=== PATIENT | male | born 1985 | race African-American/Black ===

== ENCOUNTER 2018-06-05 12:12 | Inpatient (IN) | payer MEDICAID ==
[~2018-06-05] VITALS: Ht 193 cm; Wt 122.0 kg
[~2018-06-05 12:12] MED LIST: DIVA-73 PO; ONDA4TAB35 PO
[2018-06-05] MEDS ORDERED: LORAZEPAM 2 MG INJ IM STA ×2 (12:17→18:11)
[2018-06-05] MEDS ORDERED: OLANZAPINE 10 MG VIAL IM ONE (12:30)
[2018-06-05] MEDS ORDERED: DIPHENHYDRAMINE 50 MG INJ IM ONE (12:30)
[2018-06-05] MEDS ORDERED: DIVA-48 PO ×2 (13:01)
[2018-06-05] MEDS ORDERED: OLAN10TA7 PO (13:01)
--- NOTE | 2018-06-05 13:25 | ERD ---
ER Documentation Chief Complaint Chief Complaint pt bib ambulance for psych eval, pt aggressive, uncooperative, with PD HPI 33-year-old male was brought in by ambulance and police after he was found aggressive and acting abnormally in the street. Reportedly the patient was here yesterday but left without being seen. Otherwise history is limited as the patient is unable to answer questions appropriately ROS Unable to obtain as the patient is intoxicated and not making sense Medications Home Meds Reported Medications Olanzapine* (Zyprexa*) 10 Mg Tablet, 10 MG PO BID, #30 TAB 06/05/18 Divalproex Sodium* (Depakote*) 500 Mg Tablet.dr, 250 MG PO QAM, #90 TAB 06/05/18 Divalproex Sodium* (Depakote*) 500 Mg Tablet.dr, 500 MG PO QPM, #120 TAB 06/05/18 Discontinued Reported Medications [none] Unknown Strength No Conflict Check 02/24/15 Divalproex Sodium* (Depakote ER*) 250 Mg Tabsr, 250 MG PO DAILY, TAB.SA 10/25/14 Discontinued Scripts Ondansetron Hcl* (Zofran* ODT) 4 mg -ODT Tab.disper, 4 MG PO Q8 PRN for NAUSEA AND/OR VOMITING, #30 TAB Prov:VADIM BLAIR NP 02/25/15 Allergies Allergies: Coded Allergies: No Known Allergy (Unverified , 06/05/18) PMhx/Soc Unable to obtain History of Surgery: No Anesthesia Reaction: No Hx Neurological Disorder: No Hx Respiratory Disorders: No Hx Cardiac Disorders: No Hx Psychiatric Problems: Yes (schizo, bipolar ) Hx Miscellaneous Medical Probl: No Hx Alcohol Use: No (DENIES) Hx Substance Use: No (DENIES) Hx Tobacco Use: Yes Smoking Status: Current every day smoker FmHx Unable to obtain Physical Exam Vitals Vital Signs Date Temp Pulse Resp B/P (MAP) Pulse Ox O2 O2 Flow FiO2 Time Delivery Rate 06/05/18 98.0 77 18 132/88 97 14:55 (103) 06/05/18 98.1 83 20 136/81 98 14:50 (99) 06/05/18 98.1 83 20 137/83 98 14:35 (101) 06/05/18 98.1 78 20 145/93 98 14:20 (110) 06/05/18 98.4 127 20 168/104 100 12:28 (125) Physical Exam Const: No acute distress. Clean, well dressed. Agitated Head: Atraumatic Eyes: Normal Conjunctiva, PERRLA ENT: Normal External Ears, Nose and Mouth. Neck: Full range of motion. No meningismus. Resp: No respiratory distress Cardio: Tachycardic with regular rhythm Abd: Nondistended Skin: No cyanosis Ext: No deformities or edema Neur: Awake and alert, unable to answer orientation questions. Moving all extremities spontaneously. No facial droop. Normal speech. Psych: Agitated, verbally abusive, currently in handcuffs but trying to get out of bed. Speech content abnormal, rapid speech, rambling. Result Diagram: 06/05/18 1346 06/05/18 1346 Results 24 hrs Laboratory Tests Test 06/05/18 13:46 White Blood Count 7.0 10^3/ul Red Blood Count 4.66 10^6/ul Hemoglobin 12.6 g/dl Hematocrit 40.0 % Mean Corpuscular Volume 85.8 fl Mean Corpuscular Hemoglobin 27.0 pg Mean Corpuscular Hemoglobin Concent 31.5 g/dl Red Cell Distribution Width 12.4 % Platelet Count 201 10^3/UL Mean Platelet Volume 10.3 fl Immature Granulocytes % 0.400 % Neutrophils % 64.6 % Lymphocytes % 19.1 % Monocytes % 15.1 % Eosinophils % 0.7 % Basophils % 0.1 % Nucleated Red Blood Cells % 0.0 /100WBC Immature Granulocytes # 0.030 10^3/ul Neutrophils # 4.5 10^3/ul Lymphocytes # 1.3 10^3/ul Monocytes # 1.1 10^3/ul Eosinophils # 0.1 10^3/ul Basophils # 0.0 10^3/ul Nucleated Red Blood Cells # 0.0 10^3/ul Sodium Level 138 mmol/L Potassium Level 3.5 mmol/L Chloride Level 103 mmol/L Carbon Dioxide Level 28 mmol/L Anion Gap 7 Blood Urea Nitrogen 13 mg/dl Creatinine 1.18 mg/dl Est Glomerular Filtrat Rate mL/min > 60 mL/min Glucose Level 83 mg/dl Calcium Level 8.9 mg/dl Total Bilirubin 0.3 mg/dl Direct Bilirubin 0.00 mg/dl Indirect Bilirubin 0.3 mg/dl Aspartate Amino Transf (AST/SGOT) 63 IU/L Alanine Aminotransferase (ALT/SGPT) 29 IU/L Alkaline Phosphatase 73 IU/L Total Protein 7.4 g/dl Albumin 3.8 g/dl Globulin 3.60 g/dl Albumin/Globulin Ratio 1.05 Salicylates Level < 1.0 mg/dl Acetaminophen Level < 10.0 ug/ml Ethyl Alcohol Level < 10.0 mg/dl Current Medications Medications Dose Sig/Paulie Start Time Status Last (Trade) Ordered Route PRN Stop Time Admin Dose Reason Admin Lorazepam 2 mg ONCE STAT 06/05/18 DC 06/05/18 (Ativan) IM 12:17 12:29 06/05/18 12:20 Olanzapine 10 mg ONCE ONCE 06/05/18 DC 06/05/18 (Zyprexa) IM 12:30 12:47 06/05/18 12:31 50 mg ONCE ONCE 06/05/18 DC 06/05/18 Diphenhydrami IM 12:30 12:29 ne HCl 06/05/18 12:31 (Benadryl) Ketamine 6 mg ONCE STAT 06/05/18 DC HCl IM 17:50 (Ketalar) 06/05/18 17:54 Haloperidol 5 mg ONCE STAT 06/05/18 DC (Haldol) IM 17:50 06/05/18 17:54 Ketamine 500 mg ONCE ONCE 06/05/18 DC 06/05/18 HCl IM 18:00 18:07 (Ketalar) 06/05/18 18:01 Lorazepam 2 mg ONCE STAT 06/05/18 DC (Ativan) IM 18:11 06/05/18 18:19 Procedures/MDM Initiation of Seclusion/Restraint time of evaluation: 12:17 This patient was placed in Seclusion/Restraint because: Danger to self, danger to others Less restrictive measures of verbal interventions/reminders, security standby, medications offered/given, nursing interventions based on Face to Face assessment findings, alteration to physical environment/reduce stimuli were attempted prior to restraint and/or seclusion. I performed a face to face assessment within one hour of the restraint/seclusion at time 1317. Patients condition at assessment is: sleepy but arousable and restraints were: removed. Initiation of Seclusion/Restraint time of evaluation: 17:50 This patient was placed in Seclusion/Restraint because: Danger to self, danger to others Less restrictive measures of verbal interventions/reminders, security standby, medications offered/given, nursing interventions based on Face to Face assessment findings, alteration to physical environment/reduce stimuli were attempted prior to restraint and/or seclusion. I performed a face to face assessment within one hour of the restraint/seclusion at time 1950. Patients condition at assessment is: sleepy but arousable and restraints were: removed MDM Patient presented very agitated, combative, clearly with acute psychosis. He was restrained and chemically sedated. After this, the patient was sleeping and restraints were removed. During his ED course, he acutely became very agitated and combative. Multiple staff members were required to hold him down and get him back into bed. He had been given medications initially and I had given him another 2 mg of Ativan when this happened, however the patient could not be de- escalated. Given the extent of the violence that was happening in the ER, the patient required ketamine IM sedation as he was a danger to himself and all staff. He was not verbally redirectable. He was threatening to kill multiple people in the ER. Police were called but cannot do anything as the patient is now sedated. From my standpoint, when he wakes up, he is medically cleared for psychiatric evaluation. We will continue to be in ER for observation. Critical Care Time: 60 minutes Treatments/Evaluations: Close monitoring and treatment of unstable vital signs, cardiorespiratory, and neurologic status, while maintaining tight balance of fluid, respiratory, and cardiac interventions. This time includes discussing the case with the patient and the patients family. This time does not include all procedures stated elsewhere in this record. This time also includes reviewing old records, labs and radiological studies. This time includes examining and re- examining the patient. Additionally, this time also includes arranging care with admitting and consulting physicians. Departure Diagnosis: Primary Impression: Psychosis Psychosis type: unspecified psychosis type Qualified Codes: F29 - Unspecified psychosis not due to a substance or known physiological condition Additional Impressions: At risk for danger to others Aggressive behavior Homicidal ideations MITALI RILEY MD Jun 05, 2018 13:25
[2018-06-05] MEDS ORDERED: HALOPERIDOL 5 MG INJ IM STA (17:50)
[2018-06-05] MEDS ORDERED: KETAMINE (50 MG/ML) 10 ML VIAL IM STA (17:50)
[2018-06-05] MEDS ORDERED: KETAMINE (50 MG/ML) 10 ML VIAL IM ONE (18:00)
--- NOTE | 2018-06-06 03:06 | EN ---
Date/Time of Note Date/Time of Note DATE: 06/06/18 TIME: 03:06 ER Progress Note Psychiatric Observation Note: Indication: Psychosis Duration: Greater than 22 hours Family history: As documented in original HPI The patient was observed with serial exams over the above timeframe. The patient continued to be well-appearing, and observation continued without complication. All other needs have been met during emergency department stay. Routine psychiatric medications ordered: Still pending psychiatric evaluation Hold status: Patient is still pending telemetry medicine psychiatry evaluation. He continued to be disorganized and agitated requiring sedation and only now is awake to have a conversation with the telemetry medicine psychiatrist. Placement status: Pending evaluation LANA COURTNEY Jun 06, 2018 03:06
--- NOTE | 2018-06-06 05:10 | PSY ---
Date/Time of Note Date/Time of Note DATE: 06/06/18 TIME: 05:09 Psychiatric Subjective Eval Consent Pt consented to telemedicine: Yes Subjective Evaluation Patient location: emergency Chief Complaint: pt bib ambulance for psych eval, pt aggressive, uncooperative, with PD Medical history Problems Medical Problems: (1) Aggressive behavior Status: Acute (2) At risk for danger to others Status: Acute (3) Homicidal ideations Status: Acute (4) Laceration Status: Acute (5) Medication refill Status: Acute (6) Nasal bone fx-closed Status: Acute (7) Patient left after triage Status: Acute (8) Psychosis Status: Acute (9) Suicidal ideations Status: Acute (10) Viral gastroenteritis Status: Acute Allergies: Coded Allergies: No Known Allergy (Unverified , 06/05/18) Psychiatric Objective Eval Mental Status Examination: Laboratory Results Laboratory Tests Test 06/05/18 13:46 06/05/18 20:30 White Blood Count 7.0 10^3/ul Red Blood Count 4.66 10^6/ul Hemoglobin 12.6 g/dl Hematocrit 40.0 % Mean Corpuscular Volume 85.8 fl Mean Corpuscular Hemoglobin 27.0 pg Mean Corpuscular Hemoglobin Concent 31.5 g/dl Red Cell Distribution Width 12.4 % Platelet Count 201 10^3/UL Mean Platelet Volume 10.3 fl Immature Granulocytes % 0.400 % Neutrophils % 64.6 % Lymphocytes % 19.1 % Monocytes % 15.1 % Eosinophils % 0.7 % Basophils % 0.1 % Nucleated Red Blood Cells % 0.0 /100WBC Immature Granulocytes # 0.030 10^3/ul Neutrophils # 4.5 10^3/ul Lymphocytes # 1.3 10^3/ul Monocytes # 1.1 10^3/ul Eosinophils # 0.1 10^3/ul Basophils # 0.0 10^3/ul Nucleated Red Blood Cells # 0.0 10^3/ul Sodium Level 138 mmol/L Potassium Level 3.5 mmol/L Chloride Level 103 mmol/L Carbon Dioxide Level 28 mmol/L Anion Gap 7 Blood Urea Nitrogen 13 mg/dl Creatinine 1.18 mg/dl Est Glomerular Filtrat Rate mL/min > 60 mL/min Glucose Level 83 mg/dl Calcium Level 8.9 mg/dl Total Bilirubin 0.3 mg/dl Direct Bilirubin 0.00 mg/dl Indirect Bilirubin 0.3 mg/dl Aspartate Amino Transf (AST/SGOT) 63 IU/L Alanine Aminotransferase (ALT/SGPT) 29 IU/L Alkaline Phosphatase 73 IU/L Total Protein 7.4 g/dl Albumin 3.8 g/dl Globulin 3.60 g/dl Albumin/Globulin Ratio 1.05 Salicylates Level < 1.0 mg/dl Acetaminophen Level < 10.0 ug/ml Ethyl Alcohol Level < 10.0 mg/dl Urine Color YELLOW Urine Clarity CLEAR Urine pH 6.0 Urine Specific [place] 1.015 Urine Ketones 2+ mg/dL Urine Nitrite NEGATIVE mg/dL Urine Bilirubin NEGATIVE mg/dL Urine Urobilinogen 1+ mg/dL Urine Leukocyte Esterase TRACE Deepa/ul Urine Microscopic RBC 136 /HPF Urine Microscopic WBC 21 /HPF Urine Mucus FEW /HPF Urine Hemoglobin 3+ mg/dL Urine Glucose NEGATIVE mg/dL Urine Total Protein NEGATIVE mg/dl Urine Opiates Screen Negative Urine Barbiturates Negative Urine Amphetamines Screen Negative Urine Benzodiazepines Screen Negative Urine Cocaine Screen Negative Urine Cannabinoids Positive Assessment and Plan Recommendation/Plan Discharge Disposition: Psychiatric inpatient Legal Status: Place involuntary hold Assessment Additional comments: IDENTIFYING INFORMATION: 33 year old Male patient who is cu rrently located at the hospital and for whom psychiatric consultation was requested. SOURCES OF INFORMATION: The patient who appears to be unreliable and the medical records; the nursing staff. CHIEF COMPLAINT: "I have a broken arm". HISTORY OF PRESENT ILLNESS: The patient was interviewed via telemedicine in the presence of and under the supervision of nursing staff of the hospital. The consent to conducting this interview via telemedicine was obtained by the nursing staff at the hospital. JHONATAN Chambers reports that the patient presented with agitation, violent behavior. Is not on a 5150 hold. The patient reports that he is at the hospital because of "nigers and a white boy", he is unable to provide a coherent history, keep screaming and yelling, reports that he has a broken arm. The patient denies using alcohol heavily or regularly. The patient denies using any other substances. the patient has received several medications for agitation including Zyprexa 10 mg IM, Benadryl 50 mg IM , Haldol 5 mg, Ativan 2 mg IM over the past approximately 24 hours. PAST MEDICAL HISTORY: none. CURRENT MEDICATIONS: none. ALLERGIES TO MEDICATIONS: NKDA. LABORATORY TESTS: CBC with hemoglobin of 12.6, hematocrit 40, CMP with AST of 63, UDS positive for marijuana, alcohol not detected. SOCIAL HISTORY: Unable to assess as the patient was not able to cooperate with the interview at this time. REVIEW OF SYSTEMS: unable to assess due to the patient not being able to cooperate. MENTAL STATUS EXAMINATION: General Appearance and Behavior: Agitated, appears to be responding to internal stimuli, uncooperative with most of the interview, distant with the current interviewer, makes poor eye contact, poorly groomed, increased psychomotor activity, no abnormal movements noted. Speech: Normal rate, regular rhythm, normal latency, very loud volume. Flow of thought: tangential, illogical, not goal-directed. Content of thought: appears to be responding to internal stimuliappears to be responding to internal stimuli, + paranoid delusions, no visual hallucinations, unable to assess further. Mood: unable to assess. Affect: agitated, angry, flat, decreased range of reactivity. Attention: normal based on the interview. Insight: poor. Judgment: poor. Memory: normal based on the interview. Sensorium: alert, unable to assess further. ASSESSMENT: The patient's presentation and history are consistent with the diagnosis of unspecified psychotic disorder. The patient presents with an exacerbation of psychosis in the context of medication noncompliance, psychosocial stressors and substance use. PLAN: - Medication management: Would start Zyprexa 10 mg IM PRN agitation [id number]; 3rd dose may be administered no earlier than 4 hours after 2nd dose); do not exceed 30 mg/24 hours; do not administer with IM benzodiazepines Will defer to the inpatient psychiatry team for other medication changes. - Labs: No other laboratory tests are needed at this time. - Psychotherapy: Provided supportive psychotherapy and psychoeducation. - Disposition: Would recommend involuntary admission to the inpatient psychiatric unit given the severity of the patient's psychiatric condition and the fact that the patient is an imminent danger to self and/or others so long as the patient has been cleared medically for admission to psychiatry. Inpatient psychiatric admission is at this time the least restrictive environment where the patient can receive the psychiatric care that is needed. Would place on suicide precautions. The patient fulfills criteria for being placed on an involuntary hold for being a danger to others due to a psychiatric disorder. I called the emergency room physician who is taking care of the patient to discuss about the above plan but the emergency room physician is not available at this time. I left my phone number with the hospital staff requesting a callback so that the emergency room physician can reach me when they become available. SAM ANDINO MD Jun 06, 2018 05:10
[2018-06-06] MEDS ORDERED: OLANZAPINE 10 MG VIAL IM ONE ×3 (07:00→16:00)
[2018-06-06] MEDS ORDERED: LORAZEPAM 2 MG INJ IM STA (09:44)
[2018-06-06] MEDS ORDERED: HALOPERIDOL 5 MG INJ IM STA (09:44)
[2018-06-06] MEDS ORDERED: HALOPERIDOL 5 MG INJ IM ONE (13:00)
[2018-06-06] MEDS ORDERED: DIPHENHYDRAMINE 50 MG INJ IM ONE (13:00)
[2018-06-07] MEDS ORDERED: KETAMINE (50 MG/ML) 10 ML VIAL IM ONE ×2 (00:30→18:30)
--- NOTE | 2018-06-07 00:56 | QN ---
Documentation Comment Sign Out Note: Dr. Garcia relayed current data and ongoing care with me. Time: Time of this note Main Issue: Psychosis with aggressive behavior Pending: Placement into psychiatric facility Observation Note: Time: 4 hours Family Hx: Unable to obtain due to altered mentation Evaluation: Multiple exams showed continued aggressive behavior and threatening statements. Patient does not seem to be improving with the antipsychotics and benzodiazepines that he has been given. He continues to require restraints while in the ED. Initiation of Seclusion/Restraint: 2140 This patient was placed in Seclusion/Restraint because: danger to others Less restrictive measures of verbal interventions/reminders, security standby, medications offered/given, nursing interventions based on Face to Face assessment findings, alteration to physical environment/reduce stimuli were attempted prior to restraint and/or seclusion. I performed a face to face assessment within one hour of the restraint/seclusion at time 22:41. Patients condition at assessment is: still agitated, and restraints were: continued. MITALI RILEY MD Jun 07, 2018 00:56
[2018-06-07] MEDS ORDERED: MIDAZOLAM 1 MG/ML 2 ML INJ IM ONE (02:00)
[2018-06-07] MEDS ORDERED: OLANZAPINE 10 MG VIAL IM ONE (07:00)
[2018-06-07] MEDS ORDERED: LORAZEPAM 2 MG INJ IM STA (09:23)
[2018-06-07] MEDS ORDERED: HALOPERIDOL 5 MG INJ IM STA (09:23)
--- NOTE | 2018-06-07 12:37 | QN ---
Documentation Comment This is a 33-year-old male who is been in the emergency department for several hours currently placed on a hold by PMR T. However the patient has required multiple doses of sedatives but is still very belligerent and a threat to himself and others. He is threatened verbally and physically both nursing staff and other patients in the emergency room. The patient has required high doses of sedatives which has included IM Haldol IM Zyprexa IM ketamine IM Ativan but still continues to remain alert and awake. Therefore at this time given that the patient has continued to verbally and physically aggressive I feel is necessary to re-telemetry psych this patient in order to obtain further expert advice and how to better sedate the patient is verbal de-escalation is unable to calm the patient down. CHANELL IBANEZ MD Jun 07, 2018 12:37
--- NOTE | 2018-06-07 13:29 | PSY ---
Date/Time of Note Date/Time of Note DATE: 06/07/18 TIME: 13:25 Psychiatric Subjective Eval Consent Pt consented to telemedicine: Yes Subjective Evaluation Patient location: emergency Chief Complaint: pt bib ambulance for psych eval, pt aggressive, uncooperative, with PD History of present illness "I am here because I am going to fk you" 33 yo male with hx psychosis BIB police for agitation, in ED repeatedly medicated due to aggressive bhx; pt is in restraints. He is disordganzied, irritable, paranoid : 'People are stealing my stuff". Resp to internal stimuli. Pt closed his eyes and fell asleep during the evaluation. Hospitalization: yes Medical history Problems Medical Problems: (1) Aggressive behavior Status: Acute (2) At risk for danger to others Status: Acute (3) Homicidal ideations Status: Acute (4) Laceration Status: Acute (5) Medication refill Status: Acute (6) Nasal bone fx-closed Status: Acute (7) Patient left after triage Status: Acute (8) Psychosis Status: Acute (9) Suicidal ideations Status: Acute (10) Viral gastroenteritis Status: Acute Allergies: Coded Allergies: No Known Allergy (Unverified , 06/05/18) Substance Abuse Substance abuse history: Yes Psychiatric Objective Eval Review of Systems: Review of Systems: Not Applicable Mental Status Examination: Eye Contact: Fair Psychomotor Activity: Agitated Behavior: Hostile Speech: Slurred AFFECT: Libile Mood: Angry Though Process: Tangential Thought Content: Delusions On 72 hour hold: Yes Orientation: x2 Cognition: Drowsy Insight: Impared Judgement: Impared Laboratory Results Laboratory Tests Test 06/05/18 13:46 06/05/18 20:30 White Blood Count 7.0 10^3/ul Red Blood Count 4.66 10^6/ul Hemoglobin 12.6 g/dl Hematocrit 40.0 % Mean Corpuscular Volume 85.8 fl Mean Corpuscular Hemoglobin 27.0 pg Mean Corpuscular Hemoglobin Concent 31.5 g/dl Red Cell Distribution Width 12.4 % Platelet Count 201 10^3/UL Mean Platelet Volume 10.3 fl Immature Granulocytes % 0.400 % Neutrophils % 64.6 % Lymphocytes % 19.1 % Monocytes % 15.1 % Eosinophils % 0.7 % Basophils % 0.1 % Nucleated Red Blood Cells % 0.0 /100WBC Immature Granulocytes # 0.030 10^3/ul Neutrophils # 4.5 10^3/ul Lymphocytes # 1.3 10^3/ul Monocytes # 1.1 10^3/ul Eosinophils # 0.1 10^3/ul Basophils # 0.0 10^3/ul Nucleated Red Blood Cells # 0.0 10^3/ul Sodium Level 138 mmol/L Potassium Level 3.5 mmol/L Chloride Level 103 mmol/L Carbon Dioxide Level 28 mmol/L Anion Gap 7 Blood Urea Nitrogen 13 mg/dl Creatinine 1.18 mg/dl Est Glomerular Filtrat Rate mL/min > 60 mL/min Glucose Level 83 mg/dl Calcium Level 8.9 mg/dl Total Bilirubin 0.3 mg/dl Direct Bilirubin 0.00 mg/dl Indirect Bilirubin 0.3 mg/dl Aspartate Amino Transf (AST/SGOT) 63 IU/L Alanine Aminotransferase (ALT/SGPT) 29 IU/L Alkaline Phosphatase 73 IU/L Total Protein 7.4 g/dl Albumin 3.8 g/dl Globulin 3.60 g/dl Albumin/Globulin Ratio 1.05 Salicylates Level < 1.0 mg/dl Acetaminophen Level < 10.0 ug/ml Ethyl Alcohol Level < 10.0 mg/dl Urine Color YELLOW Urine Clarity CLEAR Urine pH 6.0 Urine Specific [place] 1.015 Urine Ketones 2+ mg/dL Urine Nitrite NEGATIVE mg/dL Urine Bilirubin NEGATIVE mg/dL Urine Urobilinogen 1+ mg/dL Urine Leukocyte Esterase TRACE Deepa/ul Urine Microscopic RBC 136 /HPF Urine Microscopic WBC 21 /HPF Urine Mucus FEW /HPF Urine Hemoglobin 3+ mg/dL Urine Glucose NEGATIVE mg/dL Urine Total Protein NEGATIVE mg/dl Urine Opiates Screen Negative Urine Barbiturates Negative Urine Amphetamines Screen Negative Urine Benzodiazepines Screen Negative Urine Cocaine Screen Negative Urine Cannabinoids Positive Assessment and Plan Assessment/Diagnosis Diagnosis Unspecified psychosis vs schizophrenia. Recommendation/Plan Medication Management Start on Depakote 500 mg PO BID; Zyprexa 10 mg PO BID ; cogentin 10 mg po tid; for agitation: Haldol 10 mg+ Ativan 2 mg + Benadryl 50 mg IM prn q 12 Discharge Disposition: Psychiatric inpatient Legal Status: Continue involuntary hold MILI WETZEL MD Jun 07, 2018 13:29
[2018-06-07] MEDS ORDERED: LORAZEPAM 2 MG INJ IM ONE (14:00)
[2018-06-07] MEDS ORDERED: DIPHENHYDRAMINE 50 MG INJ IM ONE (14:00)
[2018-06-07] MEDS ORDERED: HALOPERIDOL 5 MG INJ IM ONE (14:00)
[2018-06-07] MEDS ORDERED: MIDAZOLAM 1 MG/ML 5 ML INJ IM ONE (19:00)
[2018-06-07] MEDS ORDERED: MIDAZOLAM 5 MG/ML 1ML INJ IM ONE (19:00)
[2018-06-07] MEDS ORDERED: OLANZAPINE (ODT) 5 MG TAB ODT SCH (21:00)
[2018-06-07] MEDS ORDERED: BENZTROPINE 1 MG TAB PO SCH (21:00)
[2018-06-07] MEDS: DIVALPROEX (EC) 500 MG TAB PO SCH (21:00)
[2018-06-08] VITALS (55 sets, daily range): BP systolic 84–224; BP diastolic 47–114; PULSE 66–137; RESP 16–26; Ht 193 cm; Wt 122.0 kg
--- NOTE | 2018-06-08 01:08 | PSY ---
Date/Time of Note Date/Time of Note DATE: 06/08/18 TIME: 00:54 Psychiatric Subjective Eval Consent Pt consented to telemedicine: No Subjective Evaluation Patient location: emergency Chief Complaint: pt bib ambulance for psych eval, pt aggressive, uncooperative, with PD History of present illness Two prior psychiatric consults done on 06/06 and 06/07. Per RN he has not improved much in the ED. He continues to be disorganized and agitated and has been in restraints since 5pm today. He seems to talk to himself at times. He has moments of lucidity but has been disorganized and delusional most of the time. He sleeps for very brief periods of time. He has received various medications in the ED including Ketamine and Versed. He gave a disorganized statement about being "mortified" and having things "so crazy like never in my life" happening. He stated he wanted staff to release his restraints and use his money to buy him a soda. He stated he just wants to leave and "has no problems at all." He stated he doesn't remember doing anything to harm anyone other than telling one lady to hurry up. He denied any hallucinations. He stated he doesn't want to stay in the ED because "there are no bitches in here, and the ones in here I already holla'd at." He stated he "takes money to make money." He then talks about getting mouth surgery Past psychiatric history He denied any past psychiatric treatment or diagnoses Hospitalization: yes Family History Unable to obtain Medical history Problems Medical Problems: (1) Aggressive behavior Status: Acute (2) At risk for danger to others Status: Acute (3) Homicidal ideations Status: Acute (4) Laceration Status: Acute (5) Medication refill Status: Acute (6) Nasal bone fx-closed Status: Acute (7) Patient left after triage Status: Acute (8) Psychosis Status: Acute (9) Suicidal ideations Status: Acute (10) Viral gastroenteritis Status: Acute Allergies: Coded Allergies: No Known Allergy (Unverified , 06/05/18) Substance Abuse Substance use: other ("Cigarettes and marijuana.") Prior substance abuse treatmen: No Social History Marital status: single DPA/Conservatorship: No Psychiatric Objective Eval Mental Status Examination: Appearance: Disheveled Eye Contact: Fair Psychomotor Activity: Normal Behavior: Guarded Speech: Clear, Disorganized AFFECT: Blunt Mood: Appropriate/Full Though Process: Illogical Thought Content: Normal Suicidal: No Homicidal: No Orientation: x3 Cognition: Drowsy Insight: Impared Judgement: Impared Attention Span: Intact Assessment and Plan Assessment/Diagnosis Diagnosis Unspecified Psychosis Recommendation/Plan Multiple antipsychotics: No Discharge Disposition: Psychiatric inpatient Legal Status: Continue involuntary hold Other Individual has been highly agitated and disorganized in the ED requiring restraint and numerous IM medications. He was calm during my interview though disorganized. Suggest monitoring for rhabdomyolysis given the amount of time he has been in restraint as well as delirium from the numerous medications he has required for management of aggression. ALYSSA ANGUIANO MD Jun 08, 2018 01:04
[2018-06-08] MEDS ORDERED: OLANZAPINE 10 MG VIAL IM ONE (02:30)
[2018-06-08] MEDS ORDERED: LORAZEPAM 2 MG INJ IM ONE (02:30)
[2018-06-08] MEDS ORDERED: LACTATED RINGER'S 1,000 ML IV STA (04:44)
[2018-06-08] MEDS ORDERED: SOD CHLORIDE 0.9% 1,000 ML IV STA ×4 (04:44→06:40)
[2018-06-08] MEDS ORDERED: SUCCINYLCHOLINE CHLORIDE 100 MG/5 ML SYG IV STA ×2 (06:10→06:40)
[2018-06-08] MEDS ORDERED: ETOMIDATE 20 MG INJ IV STA (06:10)
[2018-06-08] MEDS ORDERED: VECURONIUM 100 MG in D5W 100 ML IV SCH (06:15)
[2018-06-08] MEDS ORDERED: [UNRECOGNIZED DRUG - OTHER] ZFS ONE (06:30)
[2018-06-08] MEDS ORDERED: DIPHENHYDRAMINE 50 MG INJ ONE (06:39)
[2018-06-08] MEDS ORDERED: PROPOFOL 100 ML IV STA (06:40)
[2018-06-08] MEDS ORDERED: PROPOFOL 100 ML ONE ×2 (06:44→08:30)
[2018-06-08] MEDS ORDERED: SODIUM CHLORIDE 0.9% 1L BAG IV* STA (06:59)
[2018-06-08] MEDS ORDERED: ETOMIDATE 20 MG INJ ONE (07:00)
[2018-06-08] MEDS ORDERED: SUCCINYLCHOLINE CHLORIDE 100 MG/5 ML SYG IV ONE (07:00)
[2018-06-08] MEDS ORDERED: PROPOFOL 200 MG INJ ONE (07:00)
--- NOTE | 2018-06-08 09:28 | QN ---
Documentation Comment HPI: This is a 33-year-old male who had been originally brought into the e mergency department for bizarre-like behavior. The patient was psychotic. He had been placed on a hold by PMRT. The patient had been in the emergency department for over 67 hours. Medical staff have been working diligently to place the patient into a psychiatric facility however this was unsuccessful due to the patient's persistent aggressive behavior. I had seen and frequently evaluated the patient yesterday for continuation of his aggression and psychosis. He had been reevaluated by the telemetry psychiatrist who offered psychiatric advice with respect to sedative medications. When I arrived to my shift on June 08, 2018 at 6 AM I went to reevaluate the patient. The patient was still very aggressive. He had been in four-point restraints as he was a danger to both self and others. IV access had been established by nursing staff however the patient ended up removing the IV himself using his teeth and therefore IV was unable to continue to be established. The patient was attempting to get out of the gurney and fighting the restraints despite sedation. The patient had repeat physical exam performed by myself. Constitutional:Well-developed. Well-nourished. Patient screaming yelling and very aggressive. HEENT:Normocephalic. Atraumatic.Pupils were equal round reactive to light. Very dry mucous membranes.No tonsillar exudates. Neck: No nuchal rigidity. No lymphadenopathy. No posterior cervical spine tenderness or step-offs. Respiratory: Not using accessory muscles of respiration.Lungs were clear to auscultation bilaterally. No rhonchi. No rales. No wheezing. Cardiovascular: Tachycardic with regular rhythm.No murmurs. No rubs were appreciated.S1, S2 normal. Distal pulses are palpable 2+ bilaterally. GI: Abdomen was soft. Nontender. Non Distended. No pulsatile abdominal masses or bruits. No rebound. No guarding. Bowel sounds were present and normal. Muscle skeletal: Full range of motion of both the upper and lower extremities bilaterally.Normal muscle tone.No assymetrical calf tenderness or swelling. Skin: No petechia, no purpura. No lesions on the palms or the soles of the feet. No maculopapular rash. NEURO: Patient was alert, awake, orientated x3.No facial droop. No slurred speech. PSYCH: Patient was expressing homicidal ideations. Patient was very belligerent. Patient was yelling and spitting. Patient was attempting to fight and remove himself from the restraints. Verbal de-escalation have been attempted multiple times both yesterday by myself, other physicians and nursing staff and again today by myself. This was unsuccessful. The patient had received multiple doses of chemical sedation. However he still remained extremely aggressive. Repeat ancillary laboratory work was obtained given that he been present for over 67 hours in the emergency department. Nursing staff had indicated that the patient had not produced urine output for over 12 hours. During the 67 hours the patient had refused to eat or drink any substances. I attempted to give the patient water but he would throw the cup of water at staff, and restraints had been removed and he attempted to hit all staff members in close vicinity. The patient at this time was placed on a conveyor monitor as he was tachycardic with a heart rate of roughly 130. The patient also had developed an episode of hypoxia satting at roughly 89-92%. I was concerned with possible aspiration pneumonia as the patient had been lying supine for several hours. At this time the clinical decision was made to intubate the patient as the patient is a high risk for aspiration pneumonia. He also had developed rhabdomyolysis with an elevated creatinine and due to his extremely aggressive behavior with only worsen his condition with potential for renal failure. I also had a lengthy discussion with the patient's father, Iwona, who can be reached at [phone]. His father indicated that the patient does have a history of illicit drug use and states he has no underlying history of schizophrenia or bipolar. He states he does not know the drugs that he uses but has done this multiple times in the past with similar episodes of aggression after taking a pill form drug. The father states that the illicit drugs that he takes are not picked up on urinary serum drug screens. The father also indicates the patient had multiple similar episodes of aggression which have caused him to be taken into custody in the past by [employer] and placed in skilled nursing. Once the patient was able to be placed on a conveyor monitor and utilizing multiple nursing staff and security guards we were able to establish IV access. The patient underwent RSI. The patient was given 20 mg of etomidate followed by 150 mg of succinylcholine intravenously. Initially 100 mg of succinylcholine have been utilized but this did not paralyze the patient. He required a further dose of 50 mg given in 25 mEq until reaching proper paralyzation in order to facilitate intubation. A 7.50 endotracheal tube was seen in past going through the cords. There is a significant amount of purulent secretions surrounding the patient's oral airway with concern for aspiration. The tube was confirmed to be in good position with equal symmetrical breath sounds heard bilaterally condensation seen within the tube and good capnometry change x6. Post intubation radiograph indicated that the endotracheal tube is in good position. There is no infiltrates or pneumothorax that was seen. I also felt it was necessary to obtain a CT scan of the head to rule out for other causes of altered mental status. The CT scan of the head reviewed by myself and the radiologist indicated that there is no intracerebral hemorrhage mass-effect or midline shift. A Malone catheter was placed. The patient had diffuse hematuria which was thought to be secondary to rhabdomyolysis. The patient now had 2 large-bore catheters that were placed and received multiple doses of IV fluids. I did not feel this time the patient required a bicarb drip at this time. After roughly 3 L of IV fluid the urine was now transparent with no hematuria. I did feel the patient's symptoms are likely result of toxic encephalopathy. The patient was attempting to bite through his endotracheal tube. Therefore a bite block was placed into the oral airway. The patient had been on propofol but still attempted to remove life-saving devices. Due to the patient's extreme aggressive behavior from his toxic encephalopathy he did require a paralytic drip in addition to the sedation; therefore he was placed on vecuronium drip I have informed the warehouse order filler [place] that the patient is currently on a hold and will require a one-to-one sitter. He will be admitted in serious condition to the hospitalist Dr. Brady will go to the intensive care unit. I obtained an EKG to rule out for arrhythmias. 12 Lead EKG tracing ordered and reviewed by myself showed: bpm and no arrhythmia. WI interval normal. QRS duration normal. No ST segment elevation No ST segment depression. No changes consistent with acute ischemia. My overall clinical impression: 1. Rhabdomyolysis 2. Toxic encephalopathy 3. Psychosis 4. Severe dehydration Critical Care: Time: 120 minutes Treatments/Evaluations: Close monitoring and treatment of unstable vital signs, cardiorespiratory, and neurologic status, while maintaining tight balance of fluid, respiratory, and cardiac interventions. Time does not include performing any of the above billable procedures. CHANELL IBANEZ MD Jun 08, 2018 09:21
[2018-06-08] MEDS: DIVALPROEX (EC) 500 MG TAB PO SCH ×2 (11:00→20:32)
--- NOTE | 2018-06-08 11:31 | CONS ---
Date/Time of Note Date/Time of Note DATE: 06/08/18 TIME: :19 Consult Date/Type/Reason Admit Date Type of Consult Psych Subjective Patient remains disorganized and confused and has been in restraints. Security staff at bedside. patient is intubated and sleepy . Will continue to monitor and follow treatment plan. Objective Patient Appearance: Poor Hygiene Voice Loudness: Excessive Variation Mood and Affect Description: Anxious Mood or Affect: Unable to assess (sleepy now) Speech Pattern: Unable to Assess (intubated) Thought Process: Disorganized Hallucination Type: None Delusion Description: Not Present Assessment/Plan Recommendations Thorazine mg and Benadryl mg Q6H PRN Agitation Thorazine mg BID YASIR RUST NP Jun 08, 2018 11:30
[2018-06-08] MEDS ORDERED: CHLORPROMAZINE 25 MG INJ IV SCH (12:00)
[2018-06-08] MEDS ORDERED: DIPHENHYDRAMINE 50 MG INJ IV PRN (12:00)
[2018-06-08] MEDS: PROPOFOL 100 ML IV SCH ×5 (12:24→23:16)
--- NOTE | 2018-06-08 12:46 | HP ---
Date/Time of Note Date/Time of Note DATE: 06/08/18 TIME: 12:41 Assessment/Plan VTE Prophylaxis SCD applied (from Nsg): Yes Pharmacological prophylaxis: NA/contraindicated Pharm contraindication: low risk/ambulating Lines/Catheters IV Catheter Type (from Nrsg): Saline Lock Assessment/Plan Hospital Course 1. Schizophrenia with acute psychosis Patient was severely agitated and aggressive in the ED and was subsequently sedated and intubated Monitor in ICU, started on Thorazine by psychiatry Continue psychiatric assessment 2. Hyponatremia IV fluids with half NS Prophylaxis: SCDs Result Diagram: 06/08/18 0834 06/08/18 0834 Results 24hrs Laboratory Tests Test 06/08/18 03:08 06/08/18 07:30 06/08/18 08:29 06/08/18 08:34 Sodium Level 142 168 #*H Potassium Level 3.5 3.6 Chloride Level 104 102 Carbon Dioxide 29 26 Level Anion Gap 9 40 #H Blood Urea 7 6 L Nitrogen Creatinine 1.02 0.92 Est Glomerular > 60 > 60 Filtrat Rate mL/min Glucose Level 83 187 # Calcium Level 9.2 8.3 L Creatine Kinase 3124 H Blood Gas Blood arterial Specimen Source Arterial Blood 06/08/2018 8:03:0 Date Drawn 9 AM Arterial Blood pH 7.328 L (Temp corrected) Arterial Blood 46.2 H pCO2 (Temp correct) Arterial Blood 512.9 H pO2 (Temp corrected) Arterial Blood 23.7 HCO3 Arterial Blood -2.5 Base Excess Arterial Blood 99.7 H Oxygen Saturation Jose Test ACCEPTAB Arterial Blood Left Radial Gas Puncture Site Arterial 0.7 Blood Carboxyhemo globin Arterial Blood 0.4 Methemoglobin Blood Gas A-a O2 153.9 H Differential Oxyhemoglobin 98.6 Percent Blood Gas 37.0 Temperature Blood Gas 16.0 Respiration Rate Blood Gas Actual 25 Respiration Rate Blood Gas VENT - AC Modality FiO2 100.0 Blood Gas Tidal 500.0 Volume Blood Gas Low 5.0 PEEP Setting Blood Gas MDA Notified Whom Blood Gas 06/08/2018 8:06:4 Notified Time 9 AM POC Venous 1.1 Lactate White Blood Count 7.1 Red Blood Count 4.90 Hemoglobin 13.3 L Hematocrit 43.2 Mean Corpuscular 88.2 Volume Mean Corpuscular 27.1 L Hemoglobin Mean Corpuscular 30.8 L Hemoglobin Concen t Red Cell 12.7 Distribution Width Platelet Count 221 Mean Platelet 10.1 Volume Immature 0.300 Granulocytes % Neutrophils % 69.9 Lymphocytes % 18.3 Monocytes % 9.8 Eosinophils % 1.6 Basophils % 0.1 Nucleated Red 0.0 Blood Cells % Immature 0.020 Granulocytes # Neutrophils # 4.9 Lymphocytes # 1.3 Monocytes # 0.7 Eosinophils # 0.1 Basophils # 0.0 Nucleated Red 0.0 Blood Cells # Prothrombin Time 14.6 Prothrombin Time 1.1 Ratio INR International 1.13 Normalized Ratio Activated 37.3 H Partial Thrombopl ast Time Lactic Acid Level 1.1 Total Bilirubin 0.1 L Direct Bilirubin 0.00 Indirect 0.1 Bilirubin Aspartate Amino 72 H Transf (AST/SGOT) Alanine 42 Aminotransferase (ALT/SGPT) Alkaline 77 Phosphatase Troponin I < 0.012 Total Protein 6.9 Albumin 3.5 Globulin 3.40 H Albumin/Globulin 1.02 Ratio Amylase Level 44 Lipase 44 HPI/ROS Admit Date/Time Admit Date/Time June 08, 2018 Hx of Present Illness Patient is a 33-year-old male with a history of obesity, schizophrenia who presents to the ER with psychosis. Toxicology was negative except for cannabinoids, patient was unable to be transferred to a psychiatric facility the patient was extremely aggressive and agitated in the ER and required multiple medications and measures for sedation. Patient ultimately required intubation and sedation with propofol and vecuronium. Patient is currently sedated and intubated and further history cannot be provided. ROS Subjective hx not possible: pt non-verbal PMH/Family/Social Past Medical History Schizophrenia Medications Current Medications Divalproex Sodium (Depakote) 500 mg BID PO ; Start 06/07/18 at 21:00 Vecuronium [place] 100 mg/ Dextrose 100 ml @ 5 mls/hr TITRATE IV Last administered on 06/08/18at 07:17; Admin Dose 9.2 MLS/HR; Start 06/08/18 at 06:15 Lorazepam (Ativan) 1 mg Q4H PRN IV AGITATION; Start 06/08/18 at 12:00 Midazolam HCl 50 ml @ 1 mls/hr TITRATE IV ; Start 06/08/18 at 12:00 Chlorpromazine (Thorazine) 150 mg BID IV ; Start 06/08/18 at 12:00 Propofol 100 ml @ 3 mls/hr Q12H IV Last administered on 06/08/18at 12:24; Admin Dose 24 MLS/HR; Start 06/08/18 at 12:00 Diphenhydramine HCl (Benadryl) 50 mg BID IV ; Start 06/08/18 at 12:00 Diphenhydramine HCl (Benadryl) 25 mg Q6 PRN IV AGITATION; Start 06/08/18 at 12:00 Coded Allergies: No Known Allergy (Unverified , 06/05/18) Family History Significant Family History: no pertinent family hx Social History Smoking Status: Current every day smoker Exam/Review of Systems Vital Signs Vitals Vital Signs Date Temp Pulse Resp B/P (MAP) Pulse Ox O2 O2 Flow FiO2 Time Delivery Rate 06/08/18 95 16 100 50 11:00 06/08/18 98.4 169/87 Room Air 10:30 (114) Exam Constitutional: non-verbal ENMT: intubated Respiratory: clear to auscultation Cardiovascular: regular rate and rhythm Gastrointestinal: soft; No distended Musculoskeletal: nl extremities to inspection ROSLYN VALENZUELA Jun 08, 2018 12:46
[2018-06-08] MEDS ORDERED: SOD CHLORIDE 0.45% 1,000 ML IV SCH (13:00)
[2018-06-08] MEDS ORDERED: SOD CHLORIDE 0.9% 1,000 ML IV SCH (13:00)
[2018-06-08] MEDS ORDERED: CHLORPROMAZINE 25 MG INJ IM SCH (13:03)
[2018-06-08] MEDS: DIPHENHYDRAMINE 50 MG INJ IV SCH ×2 (13:09→20:24)
[2018-06-08] MEDS: FENTAnyl (DRIP) 1000 mcg/100mL 100 ML IV SCH ×2 (14:34→22:28)
[2018-06-08] MEDS: MIDAZOLAM (DRIP) 50 mg/50 mL 50 ML IV SCH ×3 (14:35→22:27)
[2018-06-08] MEDS: CHLORPROMAZINE 25 MG INJ IM SCH ×2 (14:45→20:30)
[2018-06-08] MEDS: LORAZEPAM 2 MG INJ IV PRN (15:00)
--- NOTE | 2018-06-08 16:07 | CONS ---
DATE OF ADMISSION: 06/08/2018 DATE OF CONSULTATION: REASON FOR CONSULT: Severe agitation, mechanical ventilation for airway protection. SUMMARY: This is an unfortunate 33-year-old gentleman with a prior psychiatric history who has a his tory of substance abuse, came in agitated with violent behavior. Initially complaining of broken arm . Psychiatric consult was placed and despite multiple attempts to control his agitation, patient lindsey l remain at risk to himself and others. He therefore required emergent intubation and mechanical garth tilation with the initiation of paralytic medication to control his severe agitation which led to rha bdomyolysis. Currently, he remains intubated and sedated on mechanical ventilation. Malone catheter in place with aggressive volume resuscitation. PAST MEDICAL HISTORY: As above. MEDICATIONS: Unknown. ALLERGIES: UNKNOWN. SYSTEMS REVIEW: A 12-point review of systems unable to perform. PHYSICAL EXAMINATION: GENERAL: Well-nourished, well-developed gentleman, intubated and paralyzed on mechanical ventilation . VITAL SIGNS: Currently afebrile, temperature 98, pulse is 70, blood pressure 160/87, O2 saturation 9 9%, FIO2 of 75%. NECK: Supple, no JVD or lymphadenopathy. CARDIAC: S1, S2, no added sounds or murmurs. CHEST: Diminished air entry bilaterally. ABDOMEN: Soft, nontender. No guarding or rebound. EXTREMITIES: No cyanosis, clubbing, or edema. NEUROLOGIC: Unable to assess. LABORATORY DATA: White count 7.1, hemoglobin 13.3, platelets within normal limits. BUN 6, creatinin e 0.92. Creatinine kinase elevated at 3124. Sodium elevated at 168. Arterial blood gas pH 7.32, pC O2 of 46, pO2 of 512. DIAGNOSTIC DATA: Chest x-ray was performed and demonstrated no significant infiltrates or effusions. CT brain was also performed demonstrated no acute intracranial pathologies. IMPRESSION AND PLAN: 1. Severe agitation and possible acute psychotic disorder, cannot exclude underlying substance abuse . 2. Intubated for airway protection and impending rhabdomyolysis. 3. Incomplete data. PLAN: 1. Continue aggressive volume resuscitation with correction of electrolytes. 2. Agree with intravenous bicarbonate. 3. Resumption of psychiatric medications by nasogastric tube. 4. Continue paralytic. 5. DVT and GI prophylaxis. Dictated By: DOC HOLT/MINERVA Conf#: [id number] DID#: [id number] CC: ROSLYN VALENZUELA MD;*End*
[2018-06-08] MEDS ORDERED: VECURONIUM 100 MG in DEXTROSE 5% 100 ML IV PRN (17:00)
[2018-06-08] MEDS ORDERED: ACETAMINOPHEN 1000MG/100ML IV 100 ML IVPB PRN (21:30)
--- NOTE | 2018-06-08 22:43 | QN ---
Documentation Comment Patient was originally put on restraints due to his behavior, however , now the reason for the restraints has changed as it is now a medical necessity restraint as patient is now intubated and sedated and will be encephalopathic and will interfere with medical care and his encephalopathic state as he is intubated and sedated. CHARISSA CARRILLO Jun 08, 2018 22:43
[2018-06-09] VITALS (100 sets, daily range): BP systolic 64–157; BP diastolic 46–88; PULSE 90–139; RESP 17–30
[2018-06-09] MEDS ORDERED: SOD CHLORIDE 0.9% 1,000 ML IV SCH
[2018-06-09] MEDS: SOD CHLORIDE 0.9% 1,000 ML IV SCH ×4 (00:23→20:38)
[2018-06-09] MEDS: PROPOFOL 100 ML IV SCH ×3 (02:03→08:02)
[2018-06-09] MEDS: MIDAZOLAM (DRIP) 50 mg/50 mL 50 ML IV SCH ×2 (02:41→07:05)
[2018-06-09] MEDS: FENTAnyl (DRIP) 1000 mcg/100mL 100 ML IV SCH ×2 (07:08→16:54)
[2018-06-09] MEDS ORDERED: LIDOCAINE 1% (MPF) 5 ML VIAL SC ONE (09:00)
[2018-06-09] MEDS ORDERED: MAGNESIUM SULFATE 4 GM/100 ML 100 ML IVPB ONE (09:00)
[2018-06-09] MEDS: DIVALPROEX (EC) 500 MG TAB PO SCH ×2 (09:00→20:27)
[2018-06-09] MEDS: DIPHENHYDRAMINE 50 MG INJ IV SCH ×2 (09:53→20:38)
[2018-06-09] MEDS: CHLORPROMAZINE 25 MG INJ IM SCH ×2 (09:54→21:33)
--- NOTE | 2018-06-09 10:04 | CONS ---
Consult Date/Type/Reason Admit Date/Time Jun 08, 2018 at 08:51 Initial Consult Date Type of Consult Pulmonary Date/Time of Note DATE: 06/09/18 TIME: 10:02 Subjective Patient somnolent this morning on mechanical ventilation. Appreciate psychiatry recommendations. Significant nasogastric output therefore tube feeding is currently held. Objective Vital Signs Date Temp Pulse Resp B/P (MAP) Pulse Ox O2 O2 Flow FiO2 Time Delivery Rate 06/09/18 50 09:48 06/09/18 121 23 142/74 09:30 (96) 06/09/18 100 09:15 06/09/18 98.9 08:00 06/09/18 Mechanical 06:00 Ventilator Intake and Output 06/08/18 06/08/18 06/09/18 1515:00 23:00 07:00 IntakeIntake Total 3162 ml 1288 ml 1259 ml OutputOutput Total 625 ml 715 ml 195 ml BalanceBalance 2537 ml 573 ml 1064 ml Exam PHYSICAL EXAMINATION: GENERAL: Well-nourished, well-developed gentleman, intubated on mechanical ventilation. VITAL SIGNS: NECK: Supple, no JVD or lymphadenopathy. CARDIAC: S1, S2, no added sounds or murmurs. CHEST: Diminished air entry bilaterally. ABDOMEN: Soft, nontender. No guarding or rebound. EXTREMITIES: No cyanosis, clubbing, or edema. NEUROLOGIC: Unable to assess. Vent Setting Ventilator Support Mode: AC Fraction of Inspired Oxygen pe: 50 Positive End Expiratory Pressu: 5.0 Results/Medications Result Diagram: 06/09/18 0438 06/09/18 0438 Results 24 hrs Laboratory Tests Test 06/08/18 14:23 06/08/18 22:44 06/09/18 04:38 06/09/18 07:00 Lactic Acid Level 1.4 Sodium Level 142 # 142 Potassium Level 3.5 4.2 Chloride Level 103 103 Carbon Dioxide 24 25 Level Anion Gap 15 #H 14 H Blood Urea 7 8 Nitrogen Creatinine 1.21 1.40 H Glucose Level 80 # 83 Calcium Level 8.3 L 8.1 L Phosphorus Level 2.5 4.3 Albumin 3.0 L White Blood Count 11.9 #H Red Blood Count 4.27 L Hemoglobin 11.9 L Hematocrit 38.6 L Mean Corpuscular 90.4 Volume Mean Corpuscular 27.9 L Hemoglobin Mean Corpuscular 30.8 L Hemoglobin Concen t Red Cell 12.8 Distribution Width Platelet Count 174 # Mean Platelet 10.3 Volume Immature 0.700 H Granulocytes % Neutrophils % 87.8 H Lymphocytes % 5.4 L Monocytes % 5.6 Eosinophils % 0.3 Basophils % 0.2 Nucleated Red 0.0 Blood Cells % Immature 0.080 H Granulocytes # Neutrophils # 10.4 H Lymphocytes # 0.6 L Monocytes # 0.7 Eosinophils # 0.0 Basophils # 0.0 Nucleated Red 0.0 Blood Cells # Est Glomerular > 60 Filtrat Rate mL/min Magnesium Level 1.4 L Blood Gas Blood arterial Specimen Source Arterial Blood 06/09/2018 9:15:0 Date Drawn 6 AM Arterial Blood pH 7.331 L (Temp corrected) Arterial Blood 47.9 H pCO2 (Temp correct) Arterial Blood 55.7 L pO2 (Temp corrected) Arterial Blood 24.7 HCO3 Arterial Blood -1.6 Base Excess Jose Test ACCEPTAB Arterial Blood Left Radial Gas Puncture Site Blood Gas A-a O2 101.9 H Differential Blood Gas 37.0 Temperature Blood Gas 16.0 Respiration Rate Blood Gas Actual 16 Respiration Rate Blood Gas VENT - AC Modality FiO2 30.0 Blood Gas Tidal 500.0 Volume Blood Gas Low 5.0 PEEP Setting Blood Gas Geeta ADAME Notified Whom Blood Gas 06/09/2018 9:30:1 Notified Time 1 AM Test 06/09/18 08:00 06/09/18 08:34 Urine Color YELLOW Urine Clarity TURBID A Urine pH 5.0 Urine Specific 1.032 H [place] Urine Ketones 2+ H Urine Nitrite NEGATIVE Urine Bilirubin NEGATIVE Urine 1+ H Urobilinogen Urine Leukocyte NEGATIVE Esterase Urine Microscopic 0 RBC Urine Microscopic 4 WBC Urine Squamous FEW Epithelial Cells Urine Amorphous MANY A Crystals Urine Bacteria FEW A Urine Mucus FEW A Urine Hemoglobin NEGATIVE Urine Glucose NEGATIVE Urine Total 1+ H Protein Creatine Kinase 2238 H Creatine Kinase 0.1 Index Creatinine Kinase 1.20 MB (Mass) Troponin I 0.016 Medications Current Medications Divalproex Sodium (Depakote) 500 mg BID PO ; Start 06/07/18 at 21:00 Lorazepam (Ativan) 1 mg Q4H PRN IV AGITATION Last administered on 06/08/18at 15:00; Admin Dose 1 MG; Start 06/08/18 at 12:00 Midazolam HCl 50 ml @ 1 mls/hr TITRATE IV Last administered on 06/09/18at 07:05; Admin Dose 10 MLS/HR; Start 06/08/18 at 12:00 Propofol 100 ml @ 3 mls/hr Q12H IV Last administered on 06/09/18at 08:02; Admin Dose 18 MLS/HR; Start 06/08/18 at 12:00 Diphenhydramine HCl (Benadryl) 50 mg BID IV Last administered on 06/09/18at 09:53; Admin Dose 50 MG; Start 06/08/18 at 12:00 Diphenhydramine HCl (Benadryl) 25 mg Q6 PRN IV AGITATION; Start 06/08/18 at 12:00 Fentanyl 100 ml @ 2.5 mls/hr TITRATE IV Last administered on 06/09/18at 07:08; Admin Dose 10 MLS/HR; Start 06/08/18 at 14:00 Chlorpromazine (Thorazine) 150 mg BID IM Last administered on 06/09/18at 09:54; Admin Dose 150 MG; Start 06/08/18 at 13:30 Vecuronium [place] 100 mg/ Dextrose 100 ml @ 0 mls/hr TITRATE PRN IV AGITATION/ANXIETY; Start 06/08/18 at 17:00 Acetaminophen 100 ml @ 400 mls/hr Q8H PRN IVPB FEVER Last administered on 06/08/18at 21:34; Admin Dose 400 MLS/HR; Start 06/08/18 at 21:30; Stop 06/09/18 at 21:29 Sodium Chloride 1,000 ml @ 150 mls/hr Q6H40M IV Last administered on 06/09/18at 06:40; Admin Dose 150 MLS/HR; Start 06/09/18 at 00:30 Magnesium Sulfate 100 ml @ 25 mls/hr ONCE ONCE IVPB ; Start 06/09/18 at 09:00; Stop 06/09/18 at 12:59 Assessment/Plan Hospital Course (Demo Recall) IMPRESSION AND PLAN: 1. Severe agitation and possible acute psychotic disorder, cannot exclude underlying substance abuse. 2. Intubated for airway protection mild rhabdomyolysis 3. prior history of schizophrenia PLAN: 1. Continue aggressive volume resuscitation with correction of electrolytes. Renal recommendations 2. Intravenous bicarbonate 3. Resumption of psychiatric medications by nasogastric tube. Psych recommendations 4. Decrease sedation as tolerated Precedex for agitation 5. DVT and GI prophylaxis. 6. Continue mechanical ventilation anticipate weaning trial in the next 24 hours critical care time 40 minutes DOC KEITH MD, [facility] Jun 09, 2018 10:04
--- NOTE | 2018-06-09 16:15 | PN ---
Date/Time of Note Date/Time of Note DATE: 06/09/18 TIME: 16:13 Assessment/Plan VTE Prophylaxis Risk score (from Ns)>0 risk: 6 SCD applied (from [facility] [place]): Yes Pharmacological prophylaxis: NA/contraindicated Pharm contraindication: renal impairment Assessment/Plan Hospital Course 1. Schizophrenia with acute psychosis Patient was severely agitated and aggressive in the ED and was subsequently sedated and intubated Monitor in ICU, started on Thorazine by psychiatry Psychiatry consultation appreciated 2. Hypernatremia-resolved IV fluids with half NS 3. Acute kidney injury secondary to hemodynamics and/or rhabdo IV fluids Nephrology consultation obtained Prophylaxis: SCDs Result Diagram: 06/09/18 0438 06/09/18 0438 Results 24hrs Laboratory Tests Test 06/08/18 22:44 06/09/18 04:38 06/09/18 07:00 06/09/18 08:00 Sodium Level 142 # 142 Potassium Level 3.5 4.2 Chloride Level 103 103 Carbon Dioxide 24 25 Level Anion Gap 15 #H 14 H Blood Urea 7 8 Nitrogen Creatinine 1.21 1.40 H Glucose Level 80 # 83 Calcium Level 8.3 L 8.1 L Phosphorus Level 2.5 4.3 Albumin 3.0 L White Blood Count 11.9 #H Red Blood Count 4.27 L Hemoglobin 11.9 L Hematocrit 38.6 L Mean Corpuscular 90.4 Volume Mean Corpuscular 27.9 L Hemoglobin Mean Corpuscular 30.8 L Hemoglobin Concen t Red Cell 12.8 Distribution Width Platelet Count 174 # Mean Platelet 10.3 Volume Immature 0.700 H Granulocytes % Neutrophils % 87.8 H Lymphocytes % 5.4 L Monocytes % 5.6 Eosinophils % 0.3 Basophils % 0.2 Nucleated Red 0.0 Blood Cells % Immature 0.080 H Granulocytes # Neutrophils # 10.4 H Lymphocytes # 0.6 L Monocytes # 0.7 Eosinophils # 0.0 Basophils # 0.0 Nucleated Red 0.0 Blood Cells # Est Glomerular > 60 Filtrat Rate mL/min Magnesium Level 1.4 L Blood Gas Blood arterial Specimen Source Arterial Blood 06/09/2018 9:15:0 Date Drawn 6 AM Arterial Blood pH 7.331 L (Temp corrected) Arterial Blood 47.9 H pCO2 (Temp correct) Arterial Blood 55.7 L pO2 (Temp corrected) Arterial Blood 24.7 HCO3 Arterial Blood -1.6 Base Excess Jose Test ACCEPTAB Arterial Blood Left Radial Gas Puncture Site Blood Gas A-a O2 101.9 H Differential Blood Gas 37.0 Temperature Blood Gas 16.0 Respiration Rate Blood Gas Actual 16 Respiration Rate Blood Gas VENT - AC Modality FiO2 30.0 Blood Gas Tidal 500.0 Volume Blood Gas Low 5.0 PEEP Setting Blood Gas Geeta ADAME Notified Whom Blood Gas 06/09/2018 9:30:1 Notified Time 1 AM Urine Color YELLOW Urine Clarity TURBID A Urine pH 5.0 Urine Specific 1.032 H [place] Urine Ketones 2+ H Urine Nitrite NEGATIVE Urine Bilirubin NEGATIVE Urine 1+ H Urobilinogen Urine Leukocyte NEGATIVE Esterase Urine Microscopic 0 RBC Urine Microscopic 4 WBC Urine Squamous FEW Epithelial Cells Urine Amorphous MANY A Crystals Urine Bacteria FEW A Urine Mucus FEW A Urine Hemoglobin NEGATIVE Urine Glucose NEGATIVE Urine Total 1+ H Protein Test 06/09/18 08:34 Creatine Kinase 2238 H Creatine Kinase 0.1 Index Creatinine Kinase 1.20 MB (Mass) Troponin I 0.016 Subjective 24 Hr Interval Summary Subjective hx not possible: pt non-verbal Exam/Review of Systems Exam Vitals Vital Signs Date Temp Pulse Resp B/P (MAP) Pulse Ox O2 O2 Flow FiO2 Time Delivery Rate 06/09/18 127 29 142/78 100 15:30 (99) 06/09/18 50 15:20 06/09/18 99.6 12:00 06/09/18 Mechanical 06:00 Ventilator Intake and Output 06/08/18 06/08/18 06/09/18 1414:59 22:59 06:59 IntakeIntake Total 3030 ml 1270 ml 1409 ml OutputOutput Total 525 ml 790 ml 190 ml BalanceBalance 2505 ml 480 ml 1219 ml Constitutional: non-verbal ENMT: intubated Respiratory: clear to auscultation Cardiovascular: regular rate and rhythm Gastrointestinal: soft; No distended Musculoskeletal: nl extremities to inspection Results Results 24hrs Laboratory Tests Test 06/08/18 22:44 06/09/18 04:38 06/09/18 07:00 06/09/18 08:00 Sodium Level 142 # 142 Potassium Level 3.5 4.2 Chloride Level 103 103 Carbon Dioxide 24 25 Level Anion Gap 15 #H 14 H Blood Urea 7 8 Nitrogen Creatinine 1.21 1.40 H Glucose Level 80 # 83 Calcium Level 8.3 L 8.1 L Phosphorus Level 2.5 4.3 Albumin 3.0 L White Blood Count 11.9 #H Red Blood Count 4.27 L Hemoglobin 11.9 L Hematocrit 38.6 L Mean Corpuscular 90.4 Volume Mean Corpuscular 27.9 L Hemoglobin Mean Corpuscular 30.8 L Hemoglobin Concen t Red Cell 12.8 Distribution Width Platelet Count 174 # Mean Platelet 10.3 Volume Immature 0.700 H Granulocytes % Neutrophils % 87.8 H Lymphocytes % 5.4 L Monocytes % 5.6 Eosinophils % 0.3 Basophils % 0.2 Nucleated Red 0.0 Blood Cells % Immature 0.080 H Granulocytes # Neutrophils # 10.4 H Lymphocytes # 0.6 L Monocytes # 0.7 Eosinophils # 0.0 Basophils # 0.0 Nucleated Red 0.0 Blood Cells # Est Glomerular > 60 Filtrat Rate mL/min Magnesium Level 1.4 L Blood Gas Blood arterial Specimen Source Arterial Blood 06/09/2018 9:15:0 Date Drawn 6 AM Arterial Blood pH 7.331 L (Temp corrected) Arterial Blood 47.9 H pCO2 (Temp correct) Arterial Blood 55.7 L pO2 (Temp corrected) Arterial Blood 24.7 HCO3 Arterial Blood -1.6 Base Excess Jose Test ACCEPTAB Arterial Blood Left Radial Gas Puncture Site Blood Gas A-a O2 101.9 H Differential Blood Gas 37.0 Temperature Blood Gas 16.0 Respiration Rate Blood Gas Actual 16 Respiration Rate Blood Gas VENT - AC Modality FiO2 30.0 Blood Gas Tidal 500.0 Volume Blood Gas Low 5.0 PEEP Setting Blood Gas Geeta ADAME Notified Whom Blood Gas 06/09/2018 9:30:1 Notified Time 1 AM Urine Color YELLOW Urine Clarity TURBID A Urine pH 5.0 Urine Specific 1.032 H [place] Urine Ketones 2+ H Urine Nitrite NEGATIVE Urine Bilirubin NEGATIVE Urine 1+ H Urobilinogen Urine Leukocyte NEGATIVE Esterase Urine Microscopic 0 RBC Urine Microscopic 4 WBC Urine Squamous FEW Epithelial Cells Urine Amorphous MANY A Crystals Urine Bacteria FEW A Urine Mucus FEW A Urine Hemoglobin NEGATIVE Urine Glucose NEGATIVE Urine Total 1+ H Protein Test 06/09/18 08:34 Creatine Kinase 2238 H Creatine Kinase 0.1 Index Creatinine Kinase 1.20 MB (Mass) Troponin I 0.016 Medications Medication Current Medications Divalproex Sodium (Depakote) 500 mg BID PO ; Start 06/07/18 at 21:00 Lorazepam (Ativan) 1 mg Q4H PRN IV AGITATION Last administered on 06/08/18 15:00; Admin Dose 1 MG; Start 06/08/18 at 12:00 Midazolam HCl 50 ml @ 1 mls/hr TITRATE IV Last administered on 06/09/18 07:05; Admin Dose 10 MLS/HR; Start 06/08/18 at 12:00 Propofol 100 ml @ 3 mls/hr Q12H IV Last administered on 06/09/18 08:02; Admin Dose 18 MLS/HR; Start 06/08/18 at 12:00 Diphenhydramine HCl (Benadryl) 50 mg BID IV Last administered on 06/09/18 09:53; Admin Dose 50 MG; Start 06/08/18 at 12:00 Diphenhydramine HCl (Benadryl) 25 mg Q6 PRN IV AGITATION; Start 06/08/18 at 12:00 Fentanyl 100 ml @ 2.5 mls/hr TITRATE IV Last administered on 06/09/18 07:08; Admin Dose 10 MLS/HR; Start 06/08/18 at 14:00 Chlorpromazine (Thorazine) 150 mg BID IM Last administered on 06/09/18 09:54; Admin Dose 150 MG; Start 06/08/18 at 13:30 Vecuronium [place] 100 mg/ Dextrose 100 ml @ 0 mls/hr TITRATE PRN IV AGITATION/ANXIETY; Start 06/08/18 at 17:00 Acetaminophen 100 ml @ 400 mls/hr Q8H PRN IVPB FEVER Last administered on 06/08/18 21:34; Admin Dose 400 MLS/HR; Start 06/08/18 at 21:30; Stop 06/09/18 at 21:29 Sodium Chloride 1,000 ml @ 150 mls/hr Q6H40M IV Last administered on 06/09/18 14:01; Admin Dose 150 MLS/HR; Start 06/09/18 at 00:30 Dexmedetomidine HCl 200 mcg/ Sodium Chloride 50 ml @ 6.1 mls/hr TITRATE IV ; Start 06/09/18 at 16:00 ROSLYN VALENZUELA Jun 09, 2018 16:15
[2018-06-09] MEDS: DEXMEDETOMIDINE HCL 200 MCG in SOD CHLORIDE 0.9% 48 ML IV SCH ×2 (17:11→21:42)
--- NOTE | 2018-06-09 17:17 | QN ---
Documentation Comment [id number] NORWOOD MD Jun 09, 2018 17:17
[2018-06-09] MEDS: SODIUM BICARBONATE (IV ADD) 50 MEQ in DEXTROSE 5% 1,000 ML IV SCH (17:22)
[2018-06-09] MEDS: LORAZEPAM 2 MG INJ IV PRN (18:42)
[2018-06-09] MEDS ORDERED: ACETAMINOPHEN 1000MG/100ML IV 100 ML IVPB ONE (22:00)
[2018-06-09] MEDS: PIPER-TAZO 3.375 GM IV (PMX) 100 ML IVPB SCH (23:17)
[2018-06-10] VITALS (105 sets, daily range): BP systolic 97–148; BP diastolic 48–90; PULSE 80–101; RESP 14–30
--- NOTE | 2018-06-10 00:06 | CONS ---
DATE OF ADMISSION: 06/08/2018 DATE OF CONSULTATION: TYPE OF CONSULTATION: Nephrology. Thank you, Dr. Brady, for kindly asking me to see this patient in nephrology consultation. HISTORY OF PRESENT ILLNESS: The patient is a 33-year-old -[place]ian male. The patient was bro ught in by ambulance and police after he was found aggressive and acting abnormally in the street. T he patient is currently intubated. The patient was very agitated as per ER note and now noted to hav e elevated CPK and creatinine, so nephrology consultation was requested. Patient has a schizophrenia history. Has a history of suicidal ideation and viral gastroenteritis in the past. LABORATORY DATA: The patient's count level today shows WBC 11.9, hematocrit 38.6, platelet count of 174. Sodium 142, potassium 4.2. Earlier, patient's sodium 168 and creatinine 0.92. The patient's c alcium 8.1, magnesium 1.4, is being replaced. CPK 2238. PAST MEDICAL HISTORY: History of schizophrenia. ALLERGY HISTORY, FAMILY AND SOCIAL HISTORY: Cannot be obtained. MEDICATION HISTORY: Home medicine listed as: 1. Depakote. 2. Zyprexa. CURRENT MEDICATION: 1. Patient is on Precedex. 2. Patient is on fentanyl. 3. Magnesium sulfate. 4. Versed. 5. Propofol. 6. Patient is on normal saline. 7. Patient is also on Thorazine. 8. Patient on diphenhydramine. 9. Depakote. REVIEW OF SYSTEMS: Cannot be obtained. PHYSICAL EXAMINATION: GENERAL: Patient is intubated, sedated. VITAL SIGNS: Pulse 134, blood pressure of 120/69. HEENT: Head is atraumatic, normocephalic. Pupils equal, reactive to light. NECK: Supple. No JVD. LUNGS: Clear. CARDIOVASCULAR: S1, S2 normal. ABDOMEN: Soft. Bowel sounds positive in 4 quadrants. EXTREMITIES: No cyanosis, clubbing or edema. CENTRAL NERVOUS SYSTEM: The patient is intubated and sedated. LABORATORY DATA: As mentioned above, BUN of 8, creatinine 1.40. Urinalysis: Positive for ketones p amanuel, patient has protein 1+. IMPRESSION: 1. Acute kidney injury due to rhabdomyolysis with elevated CPK 2248. 2. The patient has hypomagnesemia. 3. Acute psychiatric decompensation. 4. Vent-dependent respiratory failure. 5. History of schizophrenia. 6. Status post hypernatremia. 7. Leukocytosis. 8. CK 2238. 9. Hypoalbuminemia. PLAN: To obtain urine sodium and creatinine. Check CPK level daily. IV fluid with sodium bicarbona te. Ultrasound of the kidney if not done. Patient's electrolytes will be monitored very closely, in cluding magnesium, calcium and phosphorus. Thank you, Dr. Brady, for kindly asking me to see this patient in nephrology consultation. Dictated By: MINESH SAINI MD BS/NTS Conf#: [id number] DID#: [id number] CC: ROSLYN BRADY MD;*EndCC*
[2018-06-10] MEDS: DEXMEDETOMIDINE HCL 200 MCG in SOD CHLORIDE 0.9% 48 ML IV SCH ×9 (00:10→23:30)
[2018-06-10] MEDS: SOD CHLORIDE 0.9% 1,000 ML IV SCH ×4 (03:38→20:23)
[2018-06-10] MEDS: FENTAnyl (DRIP) 1000 mcg/100mL 100 ML IV SCH (04:23)
[2018-06-10] MEDS: PIPER-TAZO 3.375 GM IV (PMX) 100 ML IVPB SCH ×4 (05:28→23:27)
[2018-06-10] MEDS: SODIUM BICARBONATE (IV ADD) 50 MEQ in DEXTROSE 5% 1,000 ML IV SCH (06:05)
[2018-06-10] MEDS ORDERED: MAGNESIUM SULFATE 2 GM/50 ML 50 ML IVPB ONE (07:00)
[2018-06-10] MEDS: POTASSIUM CHLORIDE 100 ML IVPB SCH ×2 (07:54→09:47)
--- NOTE | 2018-06-10 08:56 | CONS ---
Assessment/Plan Assessment/Plan Assessment/Plan (Daily) 33 y/o with 1 Acute kidney injury due to rhabdomyolysis with elevated CPK 2248.improving 2. The patient has hypomagnesemia. 3. Acute psychiatric decompensation. 4. Vent-dependent respiratory failure. 5. History of schizophrenia. 6. Status post hypernatremia. 7. Leukocytosis. 8 Hypokalemia 9 Hypophos Plan - cw bicarb gtt - cw NS at 150 cc/hr - Replete K, phos and Mg - check daily CK levels - Sedation per pulmonary - left kidney not visualised on Renal US. Will talk to Radiolgy or try repeat the film - Consultation Date/Type/Reason Admit Date/Time Jun 08, 2018 at 08:51 Initial Consult Date Date/Time of Note DATE: 06/10/18 TIME: 08:52 24 HR Interval Summary Free Text/Dictation intubated on bicarb gtt and NS UOP 30 cc/hr Exam/Review of Systems Exam Vitals Vital Signs Date Temp Pulse Resp B/P (MAP) Pulse Ox O2 O2 Flow FiO2 Time Delivery Rate 06/10/18 82 16 112/55 100 08:30 (74) 06/10/18 98.5 Mechanical 08:00 Ventilator 06/10/18 50 08:00 Intake and Output 06/09/18 06/09/18 06/10/18 1515:00 23:00 07:00 IntakeIntake Total 1300 ml 2294.90 ml 2176.8 ml OutputOutput Total 200 ml 890 ml 350 ml BalanceBalance 1100 ml 1404.90 ml 1826.8 ml Exam EENT: Head is atraumatic, normocephalic. Pupils equal, reactive to light. NECK: Supple. No JVD. LUNGS: Clear. CARDIOVASCULAR: S1, S2 normal. ABDOMEN: Soft. Bowel sounds positive in 4 quadrants. EXTREMITIES: No cyanosis, clubbing or edema. CENTRAL NERVOUS SYSTEM: The patient is intubated and sedated. Results Result Diagram: 06/10/18 0500 06/10/18 0500 Results 24hrs Laboratory Tests Test 06/10/18 05:00 White Blood Count 7.6 # Red Blood Count 3.51 L Hemoglobin 9.8 L Hematocrit 32.0 L Mean Corpuscular Volume 91.2 Mean Corpuscular Hemoglobin 27.9 L Mean Corpuscular Hemoglobin Concent 30.6 L Red Cell Distribution Width 13.1 Platelet Count 118 #L Mean Platelet Volume 10.5 H Immature Granulocytes % 1.100 H Neutrophils % Lymphocytes % Monocytes % Eosinophils % Basophils % Nucleated Red Blood Cells % 0.0 Immature Granulocytes # 0.080 H Neutrophils # Lymphocytes # Monocytes # Eosinophils # Basophils # Nucleated Red Blood Cells # Sodium Level 140 Potassium Level 3.4 L Chloride Level 106 Carbon Dioxide Level 27 Anion Gap 7 Blood Urea Nitrogen 7 Creatinine 0.89 Est Glomerular Filtrat Rate mL/min > 60 Glucose Level 102 Calcium Level 7.0 L Phosphorus Level 1.9 #L Magnesium Level 1.5 L Creatine Kinase 1162 H Creatine Kinase Index 0.0 Creatinine Kinase MB (Mass) 0.53 Troponin I < 0.012 Medications Medication Current Medications Divalproex Sodium (Depakote) 500 mg BID PO ; Start 06/07/18 at 21:00 Lorazepam (Ativan) 1 mg Q4H PRN IV AGITATION Last administered on 06/09/18at 18:42; Admin Dose 1 MG; Start 06/08/18 at 12:00 Midazolam HCl 50 ml @ 1 mls/hr TITRATE IV Last administered on 06/09/18at 07:05; Admin Dose 10 MLS/HR; Start 06/08/18 at 12:00 Propofol 100 ml @ 3 mls/hr Q12H IV Last administered on 06/09/18at 08:02; Admin Dose 18 MLS/HR; Start 06/08/18 at 12:00 Diphenhydramine HCl (Benadryl) 50 mg BID IV Last administered on 06/09/18at 20:38; Admin Dose 50 MG; Start 06/08/18 at 12:00 Diphenhydramine HCl (Benadryl) 25 mg Q6 PRN IV AGITATION; Start 06/08/18 at 12:00 Fentanyl 100 ml @ 2.5 mls/hr TITRATE IV Last administered on 06/10/18at 04:23; Admin Dose 10 MLS/HR; Start 06/08/18 at 14:00 Chlorpromazine (Thorazine) 150 mg BID IM Last administered on 06/09/18at 21:33; Admin Dose 150 MG; Start 06/08/18 at 13:30 Vecuronium [place] 100 mg/ Dextrose 100 ml @ 0 mls/hr TITRATE PRN IV AGIT ATION/ANXIETY; Start 06/08/18 at 17:00 Sodium Chloride 1,000 ml @ 150 mls/hr Q6H40M IV Last administered on 06/10/18at 03:38; Admin Dose 150 MLS/HR; Start 06/09/18 at 00:30 Dexmedetomidine HCl 200 mcg/ Sodium Chloride 50 ml @ 6.1 mls/hr TITRATE IV Last administered on 06/10/18at 05:49; Admin Dose 18.3 MLS/HR; Start 06/09/18 at 16:00 Sodium Bicarbonate 50 meq/Dextrose 1,000 ml @ 80 mls/hr [id number] IV Last administered on 06/10/18at 06:05; Admin Dose 80 MLS/HR; Start 06/09/18 at 18:30 Piperacillin Sod/ Tazobactam Sod 100 ml @ 200 mls/hr Q6 IVPB Last administered on 06/10/18at 05:28; Admin Dose 200 MLS/HR; Start 06/10/18 at 00:00 Potassium Chloride 100 ml @ 50 mls/hr Q2H IVPB Last administered on 06/10/18at 07:54; Admin Dose 50 MLS/HR; Start 06/10/18 at 07:00; Stop 06/10/18 at 10:59 Magnesium Sulfate 50 ml @ 25 mls/hr ONCE ONCE IVPB Last administered on 06/10/18at 06:46; Admin Dose 25 MLS/HR; Start 06/10/18 at 07:00; Stop 06/10/18 at 08:59 RAMIN ROBBINS MD Jun 10, 2018 08:56
[2018-06-10] MEDS: DIVALPROEX (EC) 500 MG TAB PO SCH ×2 (09:00→20:23)
[2018-06-10] MEDS: DIPHENHYDRAMINE 50 MG INJ IV SCH ×2 (09:03→20:23)
[2018-06-10] MEDS: MIDAZOLAM (DRIP) 50 mg/50 mL 50 ML IV SCH ×2 (09:20→17:22)
[2018-06-10] MEDS: PANTOPRAZOLE 40 MG INJ IV SCH (09:49)
[2018-06-10] MEDS: CHLORPROMAZINE 25 MG INJ IM SCH ×2 (09:49→20:24)
[2018-06-10] MEDS ORDERED: POTASSIUM PHOSPHATE 20 MEQ in SOD CHLORIDE 0.9% 250 ML IVPB ONE (10:30)
--- NOTE | 2018-06-10 11:20 | CONS ---
Consult Date/Type/Reason Admit Date/Time Jun 08, 2018 at 08:51 Initial Consult Date Type of Consult Pulmonary Date/Time of Note DATE: 06/10/18 TIME: 11:19 Subjective Patient sedated this morning. Mild agitation but not aggressive. Objective Vital Signs Date Temp Pulse Resp B/P (MAP) Pulse Ox O2 O2 Flow FiO2 Time Delivery Rate 06/10/18 84 17 130/76 100 Mechanical 11:00 (94) Ventilator 06/10/18 50 09:23 06/10/18 98.5 08:00 Intake and Output 06/09/18 06/09/18 06/10/18 1515:00 23:00 07:00 IntakeIntake Total 1300 ml 2294.90 ml 2176.8 ml OutputOutput Total 200 ml 890 ml 350 ml BalanceBalance 1100 ml 1404.90 ml 1826.8 ml Exam PHYSICAL EXAMINATION: GENERAL: Well-nourished, well-developed gentleman, intubated on mechanical ventilation. VITAL SIGNS: NECK: Supple, no JVD or lymphadenopathy. CARDIAC: S1, S2, no added sounds or murmurs. CHEST: Diminished air entry bilaterally. ABDOMEN: Soft, nontender. No guarding or rebound. EXTREMITIES: No cyanosis, clubbing, or edema. NEUROLOGIC: Unable to assess. Vent Setting Ventilator Support Mode: AC Fraction of Inspired Oxygen pe: 50 Positive End Expiratory Pressu: 5.0 Results/Medications Result Diagram: 06/10/18 0500 06/10/18 0500 Results 24 hrs Laboratory Tests Test 06/10/18 05:00 White Blood Count 7.6 # Red Blood Count 3.51 L Hemoglobin 9.8 L Hematocrit 32.0 L Mean Corpuscular Volume 91.2 Mean Corpuscular Hemoglobin 27.9 L Mean Corpuscular Hemoglobin Concent 30.6 L Red Cell Distribution Width 13.1 Platelet Count 118 #L Mean Platelet Volume 10.5 H Immature Granulocytes % 1.100 H Neutrophils % Lymphocytes % Monocytes % Eosinophils % Basophils % Nucleated Red Blood Cells % 0.0 Immature Granulocytes # 0.080 H Neutrophils # Lymphocytes # Monocytes # Eosinophils # Basophils # Nucleated Red Blood Cells # Sodium Level 140 Potassium Level 3.4 L Chloride Level 106 Carbon Dioxide Level 27 Anion Gap 7 Blood Urea Nitrogen 7 Creatinine 0.89 Est Glomerular Filtrat Rate mL/min > 60 Glucose Level 102 Calcium Level 7.0 L Phosphorus Level 1.9 #L Magnesium Level 1.5 L Creatine Kinase 1162 H Creatine Kinase Index 0.0 Creatinine Kinase MB (Mass) 0.53 Troponin I < 0.012 Medications Current Medications Divalproex Sodium (Depakote) 500 mg BID PO ; Start 06/07/18 at 21:00 Lorazepam (Ativan) 1 mg Q4H PRN IV AGITATION Last administered on 06/09/18 18:42; Admin Dose 1 MG; Start 06/08/18 at 12:00 Midazolam HCl 50 ml @ 1 mls/hr TITRATE IV Last administered on 06/10/18 09:20; Admin Dose 1 MLS/HR; Start 06/08/18 at 12:00 Propofol 100 ml @ 3 mls/hr Q12H IV Last administered on 06/09/18 08:02; Admin Dose 18 MLS/HR; Start 06/08/18 at 12:00 Diphenhydramine HCl (Benadryl) 50 mg BID IV Last administered on 06/10/18 09:03; Admin Dose 50 MG; Start 06/08/18 at 12:00 Diphenhydramine HCl (Benadryl) 25 mg Q6 PRN IV AGITATION; Start 06/08/18 at 12:00 Fentanyl 100 ml @ 2.5 mls/hr TITRATE IV Last administered on 06/10/18 04:23; Admin Dose 10 MLS/HR; Start 06/08/18 at 14:00 Chlorpromazine (Thorazine) 150 mg BID IM Last administered on 06/10/18 09:49; Admin Dose 150 MG; Start 06/08/18 at 13:30 Vecuronium [place] 100 mg/ Dextrose 100 ml @ 0 mls/hr TITRATE PRN IV AGITATION/ANXIETY; Start 06/08/18 at 17:00 Sodium Chloride 1,000 ml @ 150 mls/hr Q6H40M IV Last administered on 06/10/18 03:38; Admin Dose 150 MLS/HR; Start 06/09/18 at 00:30 Dexmedetomidine HCl 200 mcg/ Sodium Chloride 50 ml @ 6.1 mls/hr TITRATE IV Last administered on 06/10/18 09:57; Admin Dose 36.6 MLS/HR; Start 06/09/18 at 16:00 Sodium Bicarbonate 50 meq/Dextrose 1,000 ml @ 80 mls/hr [id number] IV Last administered on 06/10/18at 06:05; Admin Dose 80 MLS/HR; Start 06/09/18 at 18:30 Piperacillin Sod/ Tazobactam Sod 100 ml @ 200 mls/hr Q6 IVPB Last administered on 06/10/18at 05:28; Admin Dose 200 MLS/HR; Start 06/10/18 at 00:00 Potassium Phosphate 20 meq/ Sodium Chloride 254.5455 ml @ 63.636 m... ONCE ONCE IVPB Last administered on 06/10/18at 10:33; Admin Dose 63.636 MLS/HR; Start 06/10/18 at 10:30; Stop 06/10/18 at 14:29 Pantoprazole (Protonix Iv) 40 mg DAILY@06 IV Last administered on 06/10/18at 09:49; Admin Dose 40 MG; Start 06/10/18 at 09:00 Assessment/Plan Hospital Course (Demo Recall) IMPRESSION AND PLAN: 1. Severe agitation and possible acute psychotic disorder, cannot exclude underlying substance abuse. 2. Intubated for airway protection mild rhabdomyolysis 3. prior history of schizophrenia PLAN: 1. Continue aggressive volume resuscitation with correction of electrolytes. Renal recommendations 2. Intravenous bicarbonate 3. Resumption of psychiatric medications by nasogastric tube. Psych recommendations. 4. Decrease sedation as tolerated Precedex for agitation 5. DVT and GI prophylaxis. 6. Continue mechanical ventilation anticipate weaning trial in the next 24 hours critical care time 40 minutes DOC KEITH MD, [facility] Jun 10, 2018 11:19
--- NOTE | 2018-06-10 11:55 | PN ---
Date/Time of Note Date/Time of Note DATE: 06/10/18 TIME: 11:39 Assessment/Plan VTE Prophylaxis Risk score (from [facility] [place])>0 risk: 9 SCD applied (from [facility] [place]): Yes Pharmacological prophylaxis: NA/contraindicated Pharm contraindication: renal impairment Assessment/Plan Hospital Course 1. Schizophrenia with acute psychosis Patient was severely agitated and aggressive in the ED and was subsequently sedated and intubated Monitor in ICU, started on Thorazine by psychiatry Wean off sedation as able Psychiatry consultation appreciated 2. Hypernatremia-resolved IV fluids with half NS 3. Acute kidney injury secondary to hemodynamics and/or rhabdo-improved IV fluids Nephrology consultation appreciated Prophylaxis: SCDs DC planning: Continue to wean off sedation and vent support, follow-up with psychiatry recommendations Result Diagram: 06/10/18 0500 06/10/18 0500 Results 24hrs Laboratory Tests Test 06/10/18 05:00 White Blood Count 7.6 # Red Blood Count 3.51 L Hemoglobin 9.8 L Hematocrit 32.0 L Mean Corpuscular Volume 91.2 Mean Corpuscular Hemoglobin 27.9 L Mean Corpuscular Hemoglobin Concent 30.6 L Red Cell Distribution Width 13.1 Platelet Count 118 #L Mean Platelet Volume 10.5 H Immature Granulocytes % 1.100 H Neutrophils % Lymphocytes % Monocytes % Eosinophils % Basophils % Nucleated Red Blood Cells % 0.0 Immature Granulocytes # 0.080 H Neutrophils # Lymphocytes # Monocytes # Eosinophils # Basophils # Nucleated Red Blood Cells # Sodium Level 140 Potassium Level 3.4 L Chloride Level 106 Carbon Dioxide Level 27 Anion Gap 7 Blood Urea Nitrogen 7 Creatinine 0.89 Est Glomerular Filtrat Rate mL/min > 60 Glucose Level 102 Calcium Level 7.0 L Phosphorus Level 1.9 #L Magnesium Level 1.5 L Creatine Kinase 1162 H Creatine Kinase Index 0.0 Creatinine Kinase MB (Mass) 0.53 Troponin I < 0.012 Subjective 24 Hr Interval Summary Subjective hx not possible: pt non-verbal Exam/Review of Systems Exam Vitals Vital Signs Date Temp Pulse Resp B/P (MAP) Pulse Ox O2 O2 Flow FiO2 Time Delivery Rate 06/10/18 84 17 130/76 100 Mechanical 11:00 (94) Ventilator 06/10/18 50 09:23 06/10/18 98.5 08:00 Intake and Output 06/09/18 06/09/18 06/10/18 1515:00 23:00 07:00 IntakeIntake Total 1300 ml 2294.90 ml 2176.8 ml OutputOutput Total 200 ml 890 ml 350 ml BalanceBalance 1100 ml 1404.90 ml 1826.8 ml Constitutional: non-verbal Respiratory: clear to auscultation Cardiovascular: regular rate and rhythm Gastrointestinal: soft; No distended Musculoskeletal: nl extremities to inspection Results Results 24hrs Laboratory Tests Test 06/10/18 05:00 White Blood Count 7.6 # Red Blood Count 3.51 L Hemoglobin 9.8 L Hematocrit 32.0 L Mean Corpuscular Volume 91.2 Mean Corpuscular Hemoglobin 27.9 L Mean Corpuscular Hemoglobin Concent 30.6 L Red Cell Distribution Width 13.1 Platelet Count 118 #L Mean Platelet Volume 10.5 H Immature Granulocytes % 1.100 H Neutrophils % Lymphocytes % Monocytes % Eosinophils % Basophils % Nucleated Red Blood Cells % 0.0 Immature Granulocytes # 0.080 H Neutrophils # Lymphocytes # Monocytes # Eosinophils # Basophils # Nucleated Red Blood Cells # Sodium Level 140 Potassium Level 3.4 L Chloride Level 106 Carbon Dioxide Level 27 Anion Gap 7 Blood Urea Nitrogen 7 Creatinine 0.89 Est Glomerular Filtrat Rate mL/min > 60 Glucose Level 102 Calcium Level 7.0 L Phosphorus Level 1.9 #L Magnesium Level 1.5 L Creatine Kinase 1162 H Creatine Kinase Index 0.0 Creatinine Kinase MB (Mass) 0.53 Troponin I < 0.012 Medications Medication Current Medications Divalproex Sodium (Depakote) 500 mg BID PO ; Start 06/07/18 at 21:00 Lorazepam (Ativan) 1 mg Q4H PRN IV AGITATION Last administered on 06/09/18at 18:42; Admin Dose 1 MG; Start 06/08/18 at 12:00 Midazolam HCl 50 ml @ 1 mls/hr TITRATE IV Last administered on 06/10/18at 09:20; Admin Dose 1 MLS/HR; Start 06/08/18 at 12:00 Propofol 100 ml @ 3 mls/hr Q12H IV Last administered on 06/09/18at 08:02; Admin Dose 18 MLS/HR; Start 06/08/18 at 12:00 Diphenhydramine HCl (Benadryl) 50 mg BID IV Last administered on 06/10/18at 09:03; Admin Dose 50 MG; Start 06/08/18 at 12:00 Diphenhydramine HCl (Benadryl) 25 mg Q6 PRN IV AGITATION; Start 06/08/18 at 12:00 Fentanyl 100 ml @ 2.5 mls/hr TITRATE IV Last administered on 06/10/18 04:23; Admin Dose 10 MLS/HR; Start 06/08/18 at 14:00 Chlorpromazine (Thorazine) 150 mg BID IM Last administered on 06/10/18 09:49; Admin Dose 150 MG; Start 06/08/18 at 13:30 Vecuronium [place] 100 mg/ Dextrose 100 ml @ 0 mls/hr TITRATE PRN IV AGITATION/ANXIETY; Start 06/08/18 at 17:00 Sodium Chloride 1,000 ml @ 150 mls/hr Q6H40M IV Last administered on 06/10/18 11:34; Admin Dose 150 MLS/HR; Start 06/09/18 at 00:30 Dexmedetomidine HCl 200 mcg/ Sodium Chloride 50 ml @ 6.1 mls/hr TITRATE IV Last administered on 06/10/18 09:57; Admin Dose 36.6 MLS/HR; Start 06/09/18 at 16:00 Sodium Bicarbonate 50 meq/Dextrose 1,000 ml @ 80 mls/hr [id number] IV Last administered on 06/10/18 06:05; Admin Dose 80 MLS/HR; Start 06/09/18 at 18:30 Piperacillin Sod/ Tazobactam Sod 100 ml @ 200 mls/hr Q6 IVPB Last administered on 06/10/18 11:33; Admin Dose 200 MLS/HR; Start 06/10/18 at 00:00 Potassium Phosphate 20 meq/ Sodium Chloride 254.5455 ml @ 63.636 m... ONCE ONCE IVPB Last administered on 06/10/18 10:33; Admin Dose 63.636 MLS/HR; Start 06/10/18 at 10:30; Stop 06/10/18 at 14:29 Pantoprazole (Protonix Iv) 40 mg DAILY@06 IV Last administered on 06/10/18 09:49; Admin Dose 40 MG; Start 06/10/18 at 09:00 ROSLYN VALENZUELA Jun 10, 2018 11:54
[2018-06-10] MEDS: PROPOFOL 100 ML IV SCH ×2 (12:00→23:27)
[2018-06-10] MEDS: LORAZEPAM 2 MG INJ IV PRN (23:12)
[2018-06-11] VITALS (56 sets, daily range): BP systolic 123–176; BP diastolic 75–120; PULSE 81–117; RESP 15–40
[2018-06-11] MEDS: DEXMEDETOMIDINE HCL 200 MCG in SOD CHLORIDE 0.9% 48 ML IV SCH ×6 (01:59→11:32)
[2018-06-11] MEDS: FENTAnyl (DRIP) 1000 mcg/100mL 100 ML IV SCH (02:15)
[2018-06-11] MEDS: SOD CHLORIDE 0.9% 1,000 ML IV SCH ×3 (03:46→22:39)
[2018-06-11] MEDS: PANTOPRAZOLE 40 MG INJ IV SCH (05:23)
[2018-06-11] MEDS: PIPER-TAZO 3.375 GM IV (PMX) 100 ML IVPB SCH ×3 (05:23→18:05)
[2018-06-11] MEDS ORDERED: MAGNESIUM SULFATE 2 GM/50 ML 50 ML IVPB ONE ×2 (08:30→10:30)
--- NOTE | 2018-06-11 08:32 | PN ---
Date/Time of Note Date/Time of Note DATE: 06/11/18 TIME: 08:24 Assessment/Plan VTE Prophylaxis Risk score (from Nsg)>0 risk: 5 SCD applied (from Nsg): Yes Pharmacological prophylaxis: other Lines/Catheters IV Catheter Type (from Nrsg): PICC Line Central line still needed: Yes Urinary Cath still in place: Yes Reason Cath still needed: urinary retention Assessment/Plan Hospital Course A/P: 33 M p/w: 1. Schizophrenia with acute psychosis - Patient was severely agitated and aggressive in the ED and was subsequently sedated and intubated. -Continue to monitor in ICU, continue Thorazine as recommended by psychiatry - Wean off sedation as tolerated - Psychiatry consultation appreciated -follow-up further recommendations from the 2. Hypernatremia-resolved -For now continue IV fluids with half NS 3. Acute kidney injury secondary to hemodynamics and/or rhabdo-improved -Monitor, continue IV fluids - Nephrology consultation appreciated -Will replete low electrolytes as well Prophylaxis: SCDs DC planning: Continue to wean off sedation and vent support, follow-up with psychiatry recommendations Critical care time spent in patient care today equals 40 minutes. Result Diagram: 06/11/1844906/11/18449 Results 24hrs Laboratory Tests Test 06/10/18 17:55 06/11/18 04:50 06/11/18 07:00 Sodium Level 140 141 Potassium Level 4.3 3.8 Chloride Level 103 103 Carbon Dioxide Level 28 27 Anion Gap 9 11 Blood Urea Nitrogen 9 8 Creatinine 0.83 0.79 Est Glomerular Filtrat > 60 > 60 Rate mL/min Glucose Level 98 83 Calcium Level 7.7 L 7.5 L Phosphorus Level 2.4 L 2.4 L Magnesium Level 1.8 1.5 L Total Bilirubin 0.0 L 0.0 L Direct Bilirubin 0.00 0.00 Indirect Bilirubin 0.0 0.0 Aspartate Amino 35 32 Transf (AST/SGOT) Alanine 23 27 Aminotransferase (ALT/SGPT) Alkaline Phosphatase 63 58 Total Protein 5.8 L 5.5 L Albumin 2.5 L 2.3 L Globulin 3.30 H 3.20 Albumin/Globulin Ratio 0.75 0.71 White Blood Count 9.3 # Red Blood Count 3.67 L Hemoglobin 10.1 L Hematocrit 33.2 L Mean Corpuscular Volume 90.5 Mean Corpuscular Hemoglobin 27.5 L Mean Corpuscular 30.4 L Hemoglobin Concent Red Cell Distribution Width 12.7 Platelet Count 137 L Mean Platelet Volume 10.8 H Immature Granulocytes % 0.800 H Neutrophils % Lymphocytes % Monocytes % Eosinophils % Basophils % Nucleated Red Blood Cells % 0.0 Immature Granulocytes # 0.070 H Neutrophils # Lymphocytes # Monocytes # Eosinophils # Basophils # Nucleated Red Blood Cells # Creatine Kinase 932 H Creatine Kinase Index 0.1 Creatinine Kinase MB (Mass) 0.54 Troponin I < 0.012 Blood Gas Specimen Source Blood arterial Arterial Blood Date Drawn 06/11/2018 7:15:29 AM Arterial Blood pH 7.336 L (Temp corrected) Arterial Blood pCO2 55.7 H (Temp correct) Arterial Blood pO2 69.9 L (Temp corrected) Arterial Blood HCO3 29.1 H Arterial Blood Base Excess 2.2 Arterial Blood 93.5 L Oxygen Saturation Jose Test ACCEPTAB Arterial Blood Gas Right Radial Puncture Site Arterial 0.4 Blood Carboxyhemoglobin Arterial Blood Methemoglobin 0.2 Blood Gas A-a O2 78.6 H Differential Oxyhemoglobin Percent 92.9 L Blood Gas Temperature 37.0 Blood Gas Respiration Rate 16.0 Blood Gas Actual 16 Respiration Rate Blood Gas Modality VENT - AC FiO2 30.0 Blood Gas Tidal Volume 500.0 Blood Gas Low PEEP Setting 5.0 Blood Gas Notified Whom TM Blood Gas Notified Time 06/11/2018 7:32:08 AM Subjective 24 Hr Interval Summary Free Text/Dictation Patient still intubated. Still on sedation. Exam/Review of Systems Exam Vitals Vital Signs Date Temp Pulse Resp B/P (MAP) Pulse Ox O2 O2 Flow FiO2 Time Delivery Rate 06/11/18 84 16 140/81 95 Mechanical 07:00 (100) Ventilator 06/11/18 30 04:00 06/11/18 98.1 04:00 Intake and Output 06/10/18 06/10/18 06/11/18 1515:00 23:00 07:00 IntakeIntake Total 1416.7 ml 1218.9 ml 1689.8 ml OutputOutput Total 240 ml 558 ml 427 ml BalanceBalance 1176.7 ml 660.9 ml 1262.8 ml Exam Constitutional: non-verbal Respiratory: clear to auscultation Cardiovascular: regular rate and rhythm Gastrointestinal: soft; No distended Musculoskeletal: nl extremities to inspection Results Results 24hrs Laboratory Tests Test 06/10/18 17:55 06/11/18 04:50 06/11/18 07:00 Sodium Level 140 141 Potassium Level 4.3 3.8 Chloride Level 103 103 Carbon Dioxide Level 28 27 Anion Gap 9 11 Blood Urea Nitrogen 9 8 Creatinine 0.83 0.79 Est Glomerular Filtrat > 60 > 60 Rate mL/min Glucose Level 98 83 Calcium Level 7.7 L 7.5 L Phosphorus Level 2.4 L 2.4 L Magnesium Level 1.8 1.5 L Total Bilirubin 0.0 L 0.0 L Direct Bilirubin 0.00 0.00 Indirect Bilirubin 0.0 0.0 Aspartate Amino 35 32 Transf (AST/SGOT) Alanine 23 27 Aminotransferase (ALT/SGPT) Alkaline Phosphatase 63 58 Total Protein 5.8 L 5.5 L Albumin 2.5 L 2.3 L Globulin 3.30 H 3.20 Albumin/Globulin Ratio 0.75 0.71 White Blood Count 9.3 # Red Blood Count 3.67 L Hemoglobin 10.1 L Hematocrit 33.2 L Mean Corpuscular Volume 90.5 Mean Corpuscular Hemoglobin 27.5 L Mean Corpuscular 30.4 L Hemoglobin Concent Red Cell Distribution Width 12.7 Platelet Count 137 L Mean Platelet Volume 10.8 H Immature Granulocytes % 0.800 H Neutrophils % Lymphocytes % Monocytes % Eosinophils % Basophils % Nucleated Red Blood Cells % 0.0 Immature Granulocytes # 0.070 H Neutrophils # Lymphocytes # Monocytes # Eosinophils # Basophils # Nucleated Red Blood Cells # Creatine Kinase 932 H Creatine Kinase Index 0.1 Creatinine Kinase MB (Mass) 0.54 Troponin I < 0.012 Blood Gas Specimen Source Blood arterial Arterial Blood Date Drawn 06/11/2018 7:15:29 AM Arterial Blood pH 7.336 L (Temp corrected) Arterial Blood pCO2 55.7 H (Temp correct) Arterial Blood pO2 69.9 L (Temp corrected) Arterial Blood HCO3 29.1 H Arterial Blood Base Excess 2.2 Arterial Blood 93.5 L Oxygen Saturation Jose Test ACCEPTAB Arterial Blood Gas Right Radial Puncture Site Arterial 0.4 Blood Carboxyhemoglobin Arterial Blood Methemoglobin 0.2 Blood Gas A-a O2 78.6 H Differential Oxyhemoglobin Percent 92.9 L Blood Gas Temperature 37.0 Blood Gas Respiration Rate 16.0 Blood Gas Actual 16 Respiration Rate Blood Gas Modality VENT - AC FiO2 30.0 Blood Gas Tidal Volume 500.0 Blood Gas Low PEEP Setting 5.0 Blood Gas Notified Whom TM Blood Gas Notified Time 06/11/2018 7:32:08 AM Medications Medication Current Medications Lorazepam (Ativan) 1 mg Q4H PRN IV AGITATION Last administered on 06/10/18 23:12; Admin Dose 1 MG; Start 06/08/18 at 12:00 Midazolam HCl 50 ml @ 1 mls/hr TITRATE IV Last administered on 06/10/18 17:22; Admin Dose 1 MLS/HR; Start 06/08/18 at 12:00 Propofol 100 ml @ 3 mls/hr Q12H IV Last administered on 06/09/18 08:02; Admin Dose 18 MLS/HR; Start 06/08/18 at 12:00 Diphenhydramine HCl (Benadryl) 50 mg BID IV Last administered on 06/10/18 20:23; Admin Dose 50 MG; Start 06/08/18 at 12:00 Diphenhydramine HCl (Benadryl) 25 mg Q6 PRN IV AGITATION; Start 06/08/18 at 12:00 Fentanyl 100 ml @ 2.5 mls/hr TITRATE IV Last administered on 06/11/18 02:15; Admin Dose 10 MLS/HR; Start 06/08/18 at 14:00 Chlorpromazine (Thorazine) 150 mg BID IM Last administered on 06/10/18 20:24; Admin Dose 150 MG; Start 06/08/18 at 13:30 Vecuronium [place] 100 mg/ Dextrose 100 ml @ 0 mls/hr TITRATE PRN IV AGIT ATION/ANXIETY; Start 06/08/18 at 17:00 Sodium Chloride 1,000 ml @ 150 mls/hr Q6H40M IV Last administered on 06/11/18 03:46; Admin Dose 150 MLS/HR; Start 06/09/18 at 00:30 Dexmedetomidine HCl 200 mcg/ Sodium Chloride 50 ml @ 6.1 mls/hr TITRATE IV Last administered on 06/11/18 06:52; Admin Dose 24.4 MLS/HR; Start 06/09/18 at 16:00 Piperacillin Sod/ Tazobactam Sod 100 ml @ 200 mls/hr Q6 IVPB Last administered on 2/19/19at 05:23; Admin Dose 200 MLS/HR; Start 06/10/18 at 00:00 Pantoprazole (Protonix Iv) 40 mg DAILY@06 IV Last administered on 06/11/18at 05:23; Admin Dose 40 MG; Start 06/10/18 at 09:00 Divalproex Sodium (Depakote [place]) 500 mg BID PO ; Start 06/11/18 at 09:00 ELFEGO STANTON Jun 11, 2018 08:32
[2018-06-11] MEDS: DIPHENHYDRAMINE 50 MG INJ IV SCH ×2 (09:09→20:27)
[2018-06-11] MEDS: DIVALPROEX SPRINKLE 125 MG CAP PO SCH ×2 (09:09→20:28)
[2018-06-11] MEDS: CHLORPROMAZINE 25 MG INJ IM SCH ×2 (09:50→20:28)
[2018-06-11] MEDS ORDERED: POTASSIUM PHOSPHATE 20 MEQ in SOD CHLORIDE 0.9% 250 ML IVPB ONE (10:00)
--- NOTE | 2018-06-11 10:21 | CONS ---
Consult Date/Type/Reason Admit Date/Time Jun 08, 2018 at 08:51 Initial Consult Date Type of Consult Pulmonary Date/Time of Note DATE: 06/11/18 TIME: 10:16 Subjective Patient remains sedated on mechanical ventilation minimal secretions. Still requiring significant sedation for agitation. Objective Vital Signs Date Temp Pulse Resp B/P (MAP) Pulse Ox O2 O2 Flow FiO2 Time Delivery Rate 06/11/18 83 17 140/86 100 Mechanical 09:00 (104) Ventilator 06/11/18 98.3 08:00 06/11/18 30 08:00 Intake and Output 06/10/18 06/10/18 06/11/18 1414:59 22:59 06:59 IntakeIntake Total 1502.5 ml 1238.1 ml 1693.1 ml OutputOutput Total 240 ml 551 ml 464 ml BalanceBalance 1262.5 ml 687.1 ml 1229.1 ml Exam PHYSICAL EXAMINATION: GENERAL: Well-nourished, well-developed gentleman, intubated on mechanical ventilation. VITAL SIGNS: NECK: Supple, no JVD or lymphadenopathy. CARDIAC: S1, S2, no added sounds or murmurs. CHEST: Diminished air entry bilaterally. ABDOMEN: Soft, nontender. No guarding or rebound. EXTREMITIES: No cyanosis, clubbing, or edema. NEUROLOGIC: Unable to assess. Vent Setting Ventilator Support Mode: CPAP Fraction of Inspired Oxygen pe: 30 Positive End Expiratory Pressu: 5.0 Results/Medications Result Diagram: 06/11/18 0450 06/11/18 045 Results 24 hrs Laboratory Tests Test 06/10/18 17:55 06/11/18 04:50 06/11/18 07:00 Sodium Level 140 141 Potassium Level 4.3 3.8 Chloride Level 103 103 Carbon Dioxide Level 28 27 Anion Gap 9 11 Blood Urea Nitrogen 9 8 Creatinine 0.83 0.79 Est Glomerular Filtrat > 60 > 60 Rate mL/min Glucose Level 98 83 Calcium Level 7.7 L 7.5 L Phosphorus Level 2.4 L 2.4 L Magnesium Level 1.8 1.5 L Total Bilirubin 0.0 L 0.0 L Direct Bilirubin 0.00 0.00 Indirect Bilirubin 0.0 0.0 Aspartate Amino 35 32 Transf (AST/SGOT) Alanine 23 27 Aminotransferase (ALT/SGPT) Alkaline Phosphatase 63 58 Total Protein 5.8 L 5.5 L Albumin 2.5 L 2.3 L Globulin 3.30 H 3.20 Albumin/Globulin Ratio 0.75 0.71 White Blood Count 9.3 # Red Blood Count 3.67 L Hemoglobin 10.1 L Hematocrit 33.2 L Mean Corpuscular Volume 90.5 Mean Corpuscular Hemoglobin 27.5 L Mean Corpuscular 30.4 L Hemoglobin Concent Red Cell Distribution Width 12.7 Platelet Count 137 L Mean Platelet Volume 10.8 H Immature Granulocytes % 0.800 H Neutrophils % Lymphocytes % Monocytes % Eosinophils % Basophils % Nucleated Red Blood Cells % 0.0 Immature Granulocytes # 0.070 H Neutrophils # Lymphocytes # Monocytes # Eosinophils # Basophils # Nucleated Red Blood Cells # Creatine Kinase 932 H Creatine Kinase Index 0.1 Creatinine Kinase MB (Mass) 0.54 Troponin I < 0.012 Blood Gas Specimen Source Blood arterial Arterial Blood Date Drawn 06/11/2018 7:15:29 AM Arterial Blood pH 7.336 L (Temp corrected) Arterial Blood pCO2 55.7 H (Temp correct) Arterial Blood pO2 69.9 L (Temp corrected) Arterial Blood HCO3 29.1 H Arterial Blood Base Excess 2.2 Arterial Blood 93.5 L Oxygen Saturation Jose Test ACCEPTAB Arterial Blood Gas Right Radial Puncture Site Arterial 0.4 Blood Carboxyhemoglobin Arterial Blood Methemoglobin 0.2 Blood Gas A-a O2 78.6 H Differential Oxyhemoglobin Percent 92.9 L Blood Gas Temperature 37.0 Blood Gas Respiration Rate 16.0 Blood Gas Actual 16 Respiration Rate Blood Gas Modality VENT - AC FiO2 30.0 Blood Gas Tidal Volume 500.0 Blood Gas Low PEEP Setting 5.0 Blood Gas Notified Whom TM Blood Gas Notified Time 06/11/2018 7:32:08 AM Medications Current Medications Lorazepam (Ativan) 1 mg Q4H PRN IV AGITATION Last administered on 06/10/18at 23:12; Admin Dose 1 MG; Start 06/08/18 at 12:00 Midazolam HCl 50 ml @ 1 mls/hr TITRATE IV Last administered on 06/10/18at 17:22; Admin Dose 1 MLS/HR; Start 06/08/18 at 12:00 Propofol 100 ml @ 3 mls/hr Q12H IV Last administered on 06/09/18at 08:02; Admin Dose 18 MLS/HR; Start 06/08/18 at 12:00 Diphenhydramine HCl (Benadryl) 50 mg BID IV Last administered on 06/11/18 09:09; Admin Dose 50 MG; Start 06/08/18 at 12:00 Diphenhydramine HCl (Benadryl) 25 mg Q6 PRN IV AGITATION; Start 06/08/18 at 12:00 Fentanyl 100 ml @ 2.5 mls/hr TITRATE IV Last administered on 06/11/18 02:15; Admin Dose 10 MLS/HR; Start 06/08/18 at 14:00 Chlorpromazine (Thorazine) 150 mg BID IM Last administered on 06/11/18 09:50; Admin Dose 150 MG; Start 06/08/18 at 13:30 Vecuronium [place] 100 mg/ Dextrose 100 ml @ 0 mls/hr TITRATE PRN IV AGITATION/ANXIETY; Start 06/08/18 at 17:00 Sodium Chloride 1,000 ml @ 100 mls/hr Q10H IV Last administered on 06/11/18 03:46; Admin Dose 150 MLS/HR; Start 06/09/18 at 00:30 Dexmedetomidine HCl 200 mcg/ Sodium Chloride 50 ml @ 6.1 mls/hr TITRATE IV Last administered on 06/11/18 06:52; Admin Dose 24.4 MLS/HR; Start 06/09/18 at 16:00 Piperacillin Sod/ Tazobactam Sod 100 ml @ 200 mls/hr Q6 IVPB Last administered on 06/11/18 05:23; Admin Dose 200 MLS/HR; Start 06/10/18 at 00:00 Pantoprazole (Protonix Iv) 40 mg DAILY@06 IV Last administered on 06/11/18 05:23; Admin Dose 40 MG; Start 06/10/18 at 09:00 Divalproex Sodium (Depakote Sprinkle) 500 mg BID PO Last administered on 06/11/18 09:09; Admin Dose 500 MG; Start 06/11/18 at 09:00 Magnesium Sulfate 50 ml @ 25 mls/hr ONCE ONCE IVPB Last administered on 06/11/18 08:51; Admin Dose 25 MLS/HR; Start 06/11/18 at 08:30; Stop 06/11/18 at 10:29 Potassium Phosphate 20 meq/ Sodium Chloride 254.5455 ml @ 63.636 m... ONCE ONCE IVPB ; Start 06/11/18 at 10:00; Stop 06/11/18 at 13:59 Assessment/Plan Hospital Course (Demo Recall) IMPRESSION AND PLAN: 1. Severe agitation and possible acute psychotic disorder, cannot exclude underlying substance abuse. 2. Intubated for airway protection mild rhabdomyolysis 3. prior history of schizophrenia PLAN: 1. Continue aggressive volume resuscitation with correction of electrolytes. Renal recommendations 2. IV fluids and tube feeding as tolerated 3. Resumption of psychiatric medications by nasogastric tube. Psych recommendations. 4. Decrease sedation as tolerated Precedex for agitation 5. DVT and GI prophylaxis. 6. Continue mechanical ventilation will attempt weaning trial today. critical care time 40 minutes DOC KEITH MD, [facility] Jun 11, 2018 10:21
--- NOTE | 2018-06-11 11:16 | CONS ---
Assessment/Plan Assessment/Plan Assessment/Plan (Daily) Assessment/Plan (Daily) 33 y/o with 1 Acute kidney injury due to rhabdomyolysis with elevated CPK 2248.improving 2. The patient has hypomagnesemia. 3. Acute psychiatric decompensation. 4. Vent-dependent respiratory failure. 5. History of schizophrenia. 6. Status post hypernatremia. 7. Leukocytosis. 8 Hypokalemia 9 Hypophos Plan - Cw NS - Replete Mg - Replete Phos - Lasix challenge iv x1 - check daily CK levels - Sedation per pulmonary - left kidney not visualised on Renal US. Will talk to [employer] or try repeat the film Consultation Date/Type/Reason Admit Date/Time Jun 08, 2018 at 08:51 Initial Consult Date Date/Time of Note DATE: 06/11/18 TIME: 11:14 24 HR Interval Summary Free Text/Dictation Urine output 30 cc an hour Currently on CPAP Exam/Review of Systems Exam Vitals Vital Signs Date Temp Pulse Resp B/P (MAP) Pulse Ox O2 O2 Flow FiO2 Time Delivery Rate 06/11/18 83 17 140/86 100 Mechanical 09:00 (104) Ventilator 06/11/18 98.3 08:00 06/11/18 30 08:00 Intake and Output 06/10/18 06/10/18 06/11/18 1414:59 22:59 06:59 IntakeIntake Total 1502.5 ml 1238.1 ml 1693.1 ml OutputOutput Total 240 ml 551 ml 464 ml BalanceBalance 1262.5 ml 687.1 ml 1229.1 ml Exam EENT: Head is atraumatic, normocephalic. Pupils equal, reactive to light. NECK: Supple. No JVD. LUNGS: Clear. CARDIOVASCULAR: S1, S2 normal. ABDOMEN: Soft. Bowel sounds positive in 4 quadrants. EXTREMITIES: No cyanosis, clubbing or edema. CENTRAL NERVOUS SYSTEM: The patient is intubated and sedated. Results Result Diagram: 06/11/1844906/11/18449 Results 24hrs Laboratory Tests Test 06/10/18 17:55 06/11/18 04:50 06/11/18 07:00 06/11/18 10:30 Sodium Level 140 141 Potassium Level 4.3 3.8 Chloride Level 103 103 Carbon Dioxide 28 27 Level Anion Gap 9 11 Blood Urea 9 8 Nitrogen Creatinine 0.83 0.79 Est Glomerular > 60 > 60 Filtrat Rate mL/min Glucose Level 98 83 Calcium Level 7.7 L 7.5 L Phosphorus Level 2.4 L 2.4 L Magnesium Level 1.8 1.5 L Total Bilirubin 0.0 L 0.0 L Direct Bilirubin 0.00 0.00 Indirect 0.0 0.0 Bilirubin Aspartate Amino 35 32 Transf (AST/SGOT ) Alanine 23 27 Aminotransferase (ALT/SGPT) Alkaline 63 58 Phosphatase Total Protein 5.8 L 5.5 L Albumin 2.5 L 2.3 L Globulin 3.30 H 3.20 Albumin/Globulin 0.75 0.71 Ratio White Blood 9.3 # Count Red Blood Count 3.67 L Hemoglobin 10.1 L Hematocrit 33.2 L Mean Corpuscular 90.5 Volume Mean Corpuscular 27.5 L Hemoglobin Mean Corpuscular 30.4 L Hemoglobin Estephania nt Red Cell 12.7 Distribution Width Platelet Count 137 L Mean Platelet 10.8 H Volume Immature 0.800 H Granulocytes % Neutrophils % Segmented 57 Neutrophils % (Manual) Band Neutrophils 27 H % (Manual) Lymphocytes % Lymphocytes % 8 L (Manual) Reactive 2 H Lymphocytes % (Manual) Monocytes % Monocytes % 4 (Manual) Eosinophils % Eosinophils % 2 (Manual) Basophils % Nucleated Red 0.0 Blood Cells % Immature 0.070 H Granulocytes # Neutrophils # Neutrophils # 5.5 (Manual) Band Neutrophils 2.5 H # Lymphocytes 0.7 L (Manual) Lymphocytes # Reactive 0.1 H Lymphocytes # Monocytes # Monocytes # 0.3 (Manual) Eosinophils # Basophils # Nucleated Red Blood Cells # Platelet NORMAL Estimate Hypochromasia 1+ Anisocytosis 1+ Creatine Kinase 932 H Creatine Kinase 0.1 Index Creatinine 0.54 Kinase MB (Mass) Troponin I < 0.012 Blood Gas Blood arterial Blood arterial Specimen Source Arterial Blood 06/11/2018 7:15: 06/11/2018 10:40 Date Drawn 29 AM :25 AM Arterial Blood 7.336 L 7.349 L pH (Temp corrected) Arterial Blood 55.7 H 55.0 H pCO2 (Temp correct) Arterial Blood 69.9 L 71.6 L pO2 (Temp corrected) Arterial Blood 29.1 H 29.6 H HCO3 Arterial Blood 2.2 2.9 Base Excess Arterial Blood 93.5 L 93.6 L Oxygen Saturatio n Jose Test ACCEPTAB ACCEPTAB Arterial Blood Right Radial Right Radial Gas Puncture Site Arterial 0.4 0.1 Blood Carboxyhem oglobin Arterial Blood 0.2 0.2 Methemoglobin Blood Gas A-a O2 78.6 H 77.7 H Differential Oxyhemoglobin 92.9 L 93.3 Percent Blood Gas 37.0 37.0 Temperature Blood Gas 16.0 Respiration Rate Blood Gas Actual 16 16 Respiration Rate Blood Gas VENT - AC VENT - CPAP Modality FiO2 30.0 30.0 Blood Gas Tidal 500.0 Volume Blood Gas Low 5.0 5.0 PEEP Setting Blood Gas TM TM Notified Whom Blood Gas 06/11/2018 7:32: 06/11/2018 10:48 Notified Time 08 AM :59 AM Blood Gas 10 Pressure Support Medications Medication Current Medications Lorazepam (Ativan) 1 mg Q4H PRN IV AGITATION Last administered on 06/10/18 23:12; Admin Dose 1 MG; Start 06/08/18 at 12:00 Midazolam HCl 50 ml @ 1 mls/hr TITRATE IV Last administered on 06/10/18 17:22; Admin Dose 1 MLS/HR; Start 06/08/18 at 12:00 Propofol 100 ml @ 3 mls/hr Q12H IV Last administered on 06/09/18 08:02; Admin Dose 18 MLS/HR; Start 06/08/18 at 12:00 Diphenhydramine HCl (Benadryl) 50 mg BID IV Last administered on 06/11/18 09:09; Admin Dose 50 MG; Start 06/08/18 at 12:00 Diphenhydramine HCl (Benadryl) 25 mg Q6 PRN IV AGITATION; Start 06/08/18 at 12:00 Fentanyl 100 ml @ 2.5 mls/hr TITRATE IV Last administered on 06/11/18 02:15; Admin Dose 10 MLS/HR; Start 06/08/18 at 14:00 Chlorpromazine (Thorazine) 150 mg BID IM Last administered on 06/11/18 09:50; Admin Dose 150 MG; Start 06/08/18 at 13:30 Vecuronium [place] 100 mg/ Dextrose 100 ml @ 0 mls/hr TITRATE PRN IV AGITATION/ANXIETY; Start 06/08/18 at 17:00 Sodium Chloride 1,000 ml @ 100 mls/hr Q10H IV Last administered on 06/11/18 03:46; Admin Dose 150 MLS/HR; Start 06/09/18 at 00:30 Dexmedetomidine HCl 200 mcg/ Sodium Chloride 50 ml @ 6.1 mls/hr TITRATE IV Last administered on 06/11/18 06:52; Admin Dose 24.4 MLS/HR; Start 06/09/18 at 16:00 Piperacillin Sod/ Tazobactam Sod 100 ml @ 200 mls/hr Q6 IVPB Last administered on 06/11/18 05:23; Admin Dose 200 MLS/HR; Start 06/10/18 at 00:00 Pantoprazole (Protonix Iv) 40 mg DAILY@06 IV Last administered on 06/11/18 05:23; Admin Dose 40 MG; Start 06/10/18 at 09:00 Divalproex Sodium (Depakote Sprinkle) 500 mg BID PO Last administered on 9at 09:09; Admin Dose 500 MG; Start 06/11/18 at 09:00 Potassium Phosphate 20 meq/ Sodium Chloride 254.5455 ml @ 63.636 m... ONCE ONCE IVPB Last administered on 06/11/18at 10:24; Admin Dose 63.636 MLS/HR; Start 06/11/18 at 10:00; Stop 06/11/18 at 13:59 Furosemide (Lasix) 40 mg ONCE ONCE IV ; Start 06/11/18 at 11:30; Stop 06/11/18 at 11:31; Status RAMIN RADER MD Jun 11, 2018 11:16
[2018-06-11] MEDS: PROPOFOL 100 ML IV SCH ×2 (11:22→22:09)
[2018-06-11] MEDS ORDERED: FUROSEMIDE 40 MG INJ IV ONE (11:30)
[2018-06-11] MEDS ORDERED: SOD PHOS MONO/DIBAS 250 MG TAB NGT ONE (12:30)
[2018-06-11] MEDS ORDERED: HALOPERIDOL 5 MG INJ IV PRN (16:00)
[2018-06-11] MEDS ORDERED: DIPHENHYDRAMINE 50 MG INJ IV PRN (16:00)
[2018-06-11] MEDS: LORAZEPAM 2 MG INJ IV PRN ×3 (16:04→22:33)
[2018-06-11] MEDS ORDERED: OLANZAPINE 10 MG VIAL IM PRN (17:00)
[2018-06-11] MEDS: BENZTROPINE 1 MG TAB PO SCH ×2 (17:30→20:28)
[2018-06-11] MEDS ORDERED: BENZTROPINE 1 MG TAB PO SCH (21:00)
[2018-06-12] VITALS (24 sets, daily range): BP systolic 132–163; BP diastolic 56–89; PULSE 109–128; RESP 17–35
[2018-06-12] MEDS: PIPER-TAZO 3.375 GM IV (PMX) 100 ML IVPB SCH ×5 (00:11→23:40)
[2018-06-12] MEDS: LORAZEPAM 2 MG INJ IV PRN ×3 (00:11→20:43)
[2018-06-12] MEDS: PANTOPRAZOLE 40 MG INJ IV SCH (06:00)
--- NOTE | 2018-06-12 07:54 | CONS ---
Assessment/Plan Assessment/Plan Assessment/Plan (Daily) 1 Acute kidney injury due to rhabdomyolysis with elevated CPK 2248.improving, slight trending up CK 2. The patient has hypomagnesemia. 3. Acute psychiatric decompensation. 4. Vent-dependent respiratory failure. 5. History of schizophrenia. 6. Status post hypernatremia. 7. Leukocytosis. 8 Hypokalemia 9 Hypophos Plan - Cw NS - Replete Mg - Replete Phos - check daily CK levels - left kidney not visualised on Renal US. Likely poor study, will get repeat studies whne once more stable vs CT scan Consultation Date/Type/Reason Admit Date/Time Jun 08, 2018 at 08:51 Initial Consult Date Date/Time of Note DATE: 06/12/18 TIME: 07:51 24 HR Interval Summary Free Text/Dictation s/p extubation yesterday, doing well UOP increased after lasix challenge Exam/Review of Systems Exam Vitals Vital Signs Date Temp Pulse Resp B/P (MAP) Pulse Ox O2 O2 Flow FiO2 Time Delivery Rate 06/12/18 120 22 146/67 97 Room Air 06:00 (93) 06/12/18 100.2 04:00 06/11/18 3.0 17:52 06/11/18 30 11:20 Intake and Output 06/11/18 06/11/18 06/12/18 1515:00 23:00 07:00 IntakeIntake Total 1571.5455 ml 700 ml 1000 ml OutputOutput Total 3370 ml 2130 ml 720 ml BalanceBalance -1798.4545 ml -1430 ml 280 ml Exam EENT: Head is atraumatic, normocephalic. Pupils equal, reactive to light. NECK: Supple. No JVD. LUNGS: Clear. CARDIOVASCULAR: S1, S2 normal. ABDOMEN: Soft. Bowel sounds positive in 4 quadrants. EXTREMITIES: No cyanosis, clubbing or edema. CENTRAL NERVOUS SYSTEM: opens eyes, follows commands Results Result Diagram: 06/12/1840906/12/18409 Results 24hrs Laboratory Tests Test 06/11/18 10:30 06/11/18 12:44 06/12/18 04:10 Blood Gas Specimen Source Blood arterial Arterial Blood Date Drawn 06/11/2018 10:40:25 AM Arterial Blood pH 7.349 L (Temp corrected) Arterial Blood pCO2 55.0 H (Temp correct) Arterial Blood pO2 71.6 L (Temp corrected) Arterial Blood HCO3 29.6 H Arterial Blood Base Excess 2.9 Arterial Blood 93.6 L Oxygen Saturation Jose Test ACCEPTAB Arterial Blood Gas Right Radial Puncture Site Arterial 0.1 Blood Carboxyhemoglobin Arterial Blood 0.2 Methemoglobin Blood Gas A-a O2 77.7 H Differential Oxyhemoglobin Percent 93.3 Blood Gas Temperature 37.0 Blood Gas Actual 16 Respiration Rate Blood Gas Modality VENT - CPAP FiO2 30.0 Blood Gas Low PEEP Setting 5.0 Blood Gas Pressure Support 10 Blood Gas Notified Whom TM Blood Gas Notified Time 06/11/2018 10:48:59 AM Creatine Kinase 1021 H 1432 H Creatine Kinase Index 0.0 Creatinine Kinase MB (Mass) 0.43 Troponin I < 0.012 White Blood Count 8.8 Red Blood Count 4.03 L Hemoglobin 11.0 L Hematocrit 35.5 L Mean Corpuscular Volume 88.1 Mean Corpuscular Hemoglobin 27.3 L Mean Corpuscular 31.0 L Hemoglobin Concent Red Cell Distribution Width 12.7 Platelet Count 189 # Mean Platelet Volume 10.5 H Immature Granulocytes % 0.700 H Neutrophils % 72.5 Lymphocytes % 13.2 L Monocytes % 11.8 H Eosinophils % 1.5 Basophils % 0.3 Nucleated Red Blood Cells % 0.0 Immature Granulocytes # 0.060 H Neutrophils # 6.4 Lymphocytes # 1.2 Monocytes # 1.0 H Eosinophils # 0.1 Basophils # 0.0 Nucleated Red Blood Cells # 0.0 Sodium Level 142 Potassium Level 3.5 Chloride Level 98 Carbon Dioxide Level 26 Anion Gap 18 #H Blood Urea Nitrogen 7 Creatinine 0.98 Est Glomerular Filtrat > 60 Rate mL/min Glucose Level 70 Calcium Level 8.4 Phosphorus Level 2.3 L Magnesium Level 1.4 L Medications Medication Current Medications Midazolam HCl 50 ml @ 1 mls/hr TITRATE IV Last administered on 06/10/18at 17:22; Admin Dose 1 MLS/HR; Start 06/08/18 at 12:00 Propofol 100 ml @ 3 mls/hr Q12H IV Last administered on 06/09/18at 08:02; Admin Dose 18 MLS/HR; Start 06/08/18 at 12:00 Diphenhydramine HCl (Benadryl) 50 mg BID IV Last administered on 06/11/18 20:27; Admin Dose 50 MG; Start 06/08/18 at 12:00 Diphenhydramine HCl (Benadryl) 25 mg Q6 PRN IV AGITATION; Start 06/08/18 at 12:00 Fentanyl 100 ml @ 2.5 mls/hr TITRATE IV Last administered on 06/11/18 02:15; Admin Dose 10 MLS/HR; Start 06/08/18 at 14:00 Chlorpromazine (Thorazine) 150 mg BID IM Last administered on 06/11/18 20:28; Admin Dose 150 MG; Start 06/08/18 at 13:30 Vecuronium [place] 100 mg/ Dextrose 100 ml @ 0 mls/hr TITRATE PRN IV AGITATION/ANXIETY; Start 06/08/18 at 17:00 Sodium Chloride 1,000 ml @ 100 mls/hr Q10H IV Last administered on 06/11/18 22:39; Admin Dose 100 MLS/HR; Start 06/09/18 at 00:30 Dexmedetomidine HCl 200 mcg/ Sodium Chloride 50 ml @ 6.1 mls/hr TITRATE IV Last administered on 06/11/18 09:10; Admin Dose 24.4 MLS/HR; Start 06/09/18 at 16:00 Piperacillin Sod/ Tazobactam Sod 100 ml @ 200 mls/hr Q6 IVPB Last administered on 06/12/18 06:00; Admin Dose 200 MLS/HR; Start 06/10/18 at 00:00 Pantoprazole (Protonix Iv) 40 mg DAILY@06 IV Last administered on 06/12/18 06:00; Admin Dose 40 MG; Start 06/10/18 at 09:00 Divalproex Sodium (Depakote Sprinkle) 500 mg BID PO Last administered on 06/11/18 09:09; Admin Dose 500 MG; Start 06/11/18 at 09:00 Lorazepam (Ativan) 1 mg Q1H PRN IV AGITATION Last administered on 06/12/18 00:11; Admin Dose 1 MG; Start 06/11/18 at 16:00 Haloperidol (Haldol) 2 mg Q4H PRN IV AGITATION Last administered on 06/11/18 21:09; Admin Dose 2 MG; Start 06/11/18 at 16:00 Diphenhydramine HCl (Benadryl) 25 mg Q6H PRN IV AGITATION/ANXIETY; Start 06/11/18 at 16:00 Benztropine Mesylate (Cogentin) 2 mg TID PO ; Start 06/11/18 at 17:30 Olanzapine (Zyprexa) 10 mg Q6H PRN IM AGITATION/ANXIETY; Start 06/11/18 at 17:00 Potassium Phosphate 40 meq/ Sodium Chloride 259.0909 ml @ 64.773 m... ONCE ONCE IVPB ; Start 06/12/18 at 08:00; Stop 06/12/18 at 11:59; Status UNV RAMIN ROBBINS MD Jun 12, 2018 07:54
[2018-06-12] MEDS: BENZTROPINE 1 MG TAB PO SCH ×3 (08:50→20:43)
[2018-06-12] MEDS: DIVALPROEX SPRINKLE 125 MG CAP PO SCH ×3 (08:52→20:43)
[2018-06-12] MEDS: CHLORPROMAZINE 25 MG INJ IM SCH ×2 (08:53→20:44)
[2018-06-12] MEDS: DIPHENHYDRAMINE 50 MG INJ IV SCH ×2 (08:53→20:43)
[2018-06-12] MEDS ORDERED: MAGNESIUM SULFATE 3 GM in DEXTROSE 5% 100 ML IVPB ONE (09:00)
[2018-06-12] MEDS ORDERED: POTASSIUM PHOSPHATE 40 MEQ in SOD CHLORIDE 0.9% 250 ML IVPB ONE (09:00)
[2018-06-12] MEDS: SOD CHLORIDE 0.9% 1,000 ML IV SCH ×2 (10:19→20:45)
[2018-06-12] MEDS: PROPOFOL 100 ML IV SCH ×2 (12:00→23:40)
--- NOTE | 2018-06-12 14:19 | CONS ---
Consult Date/Type/Reason Admit Date/Time Jun 08, 2018 at 08:51 Initial Consult Date Type of Consult Pulmonary Date/Time of Note DATE: 06/12/18 TIME: 14:17 Subjective Patient remained stable post extubation. Still somewhat sleepy but arousable. Moderate generalized weakness. Objective Vital Signs Date Temp Pulse Resp B/P (MAP) Pulse Ox O2 O2 Flow FiO2 Time Delivery Rate 06/12/18 115 26 146/72 93 Room Air 14:00 (96) 06/12/18 99.0 12:00 06/11/18 3.0 17:52 06/11/18 30 11:20 Intake and Output 06/11/18 06/11/18 06/12/18 1414:59 22:59 06:59 IntakeIntake Total 1636.5455 ml 765 ml 935 ml OutputOutput Total 2700 ml 2770 ml 780 ml BalanceBalance -1063.4545 ml -2005 ml 155 ml Exam PHYSICAL EXAMINATION: GENERAL: Well-nourished, well-developed gentleman, stable on room air. VITAL SIGNS: NECK: Supple, no JVD or lymphadenopathy. CARDIAC: S1, S2, no added sounds or murmurs. CHEST: Diminished air entry bilaterally. ABDOMEN: Soft, nontender. No guarding or rebound. EXTREMITIES: No cyanosis, clubbing, or edema. NEUROLOGIC: Generalized weakness no focal deficits. Vent Setting Ventilator Support Mode: CPAP, PS Fraction of Inspired Oxygen pe: 30 Positive End Expiratory Pressu: 5.0 Results/Medications Result Diagram: 06/12/1840906/12/18409 Results 24 hrs Laboratory Tests Test 06/12/18 04:10 White Blood Count 8.8 Red Blood Count 4.03 L Hemoglobin 11.0 L Hematocrit 35.5 L Mean Corpuscular Volume 88.1 Mean Corpuscular Hemoglobin 27.3 L Mean Corpuscular Hemoglobin Concent 31.0 L Red Cell Distribution Width 12.7 Platelet Count 189 # Mean Platelet Volume 10.5 H Immature Granulocytes % 0.700 H Neutrophils % 72.5 Lymphocytes % 13.2 L Monocytes % 11.8 H Eosinophils % 1.5 Basophils % 0.3 Nucleated Red Blood Cells % 0.0 Immature Granulocytes # 0.060 H Neutrophils # 6.4 Lymphocytes # 1.2 Monocytes # 1.0 H Eosinophils # 0.1 Basophils # 0.0 Nucleated Red Blood Cells # 0.0 Sodium Level 142 Potassium Level 3.5 Chloride Level 98 Carbon Dioxide Level 26 Anion Gap 18 #H Blood Urea Nitrogen 7 Creatinine 0.98 Est Glomerular Filtrat Rate mL/min > 60 Glucose Level 70 Calcium Level 8.4 Phosphorus Level 2.3 L Magnesium Level 1.4 L Creatine Kinase 1432 H Medications Current Medications Midazolam HCl 50 ml @ 1 mls/hr TITRATE IV Last administered on 06/10/18 17:22; Admin Dose 1 MLS/HR; Start 06/08/18 at 12:00 Propofol 100 ml @ 3 mls/hr Q12H IV Last administered on 06/09/18 08:02; Admin Dose 18 MLS/HR; Start 06/08/18 at 12:00 Diphenhydramine HCl (Benadryl) 50 mg BID IV Last administered on 06/12/18 08:53; Admin Dose 50 MG; Start 06/08/18 at 12:00 Diphenhydramine HCl (Benadryl) 25 mg Q6 PRN IV AGITATION; Start 06/08/18 at 12: 00 Fentanyl 100 ml @ 2.5 mls/hr TITRATE IV Last administered on 06/11/18 02:15; Admin Dose 10 MLS/HR; Start 06/08/18 at 14:00 Chlorpromazine (Thorazine) 150 mg BID IM Last administered on 06/12/18 08:53; Admin Dose 150 MG; Start 06/08/18 at 13:30 Vecuronium [place] 100 mg/ Dextrose 100 ml @ 0 mls/hr TITRATE PRN IV AGITATION/ANXIETY; Start 06/08/18 at 17:00 Sodium Chloride 1,000 ml @ 100 mls/hr Q10H IV Last administered on 06/12/18 10:19; Admin Dose 100 MLS/HR; Start 06/09/18 at 00:30 Dexmedetomidine HCl 200 mcg/ Sodium Chloride 50 ml @ 6.1 mls/hr TITRATE IV Last administered on 06/11/18 09:10; Admin Dose 24.4 MLS/HR; Start 06/09/18 at 16:00 Piperacillin Sod/ Tazobactam Sod 100 ml @ 200 mls/hr Q6 IVPB Last administered on 06/12/18 12:42; Admin Dose 200 MLS/HR; Start 06/10/18 at 00:00 Pantoprazole (Protonix Iv) 40 mg DAILY@06 IV Last administered on 06/12/18at 06:00; Admin Dose 40 MG; Start 06/10/18 at 09:00 Divalproex Sodium (Depakote Sprinkle) 500 mg BID PO Last administered on 06/11/18at 09:09; Admin Dose 500 MG; Start 06/11/18 at 09:00 Lorazepam (Ativan) 1 mg Q1H PRN IV AGITATION Last administered on 06/12/18at 11:48; Admin Dose 1 MG; Start 06/11/18 at 16:00 Haloperidol (Haldol) 2 mg Q4H PRN IV AGITATION Last administered on 06/11/18at 21:09; Admin Dose 2 MG; Start 06/11/18 at 16:00 Diphenhydramine HCl (Benadryl) 25 mg Q6H PRN IV AGITATION/ANXIETY; Start 06/11 at 16:00 Benztropine Mesylate (Cogentin) 2 mg TID PO Last administered on 06/12/18at 08:50; Admin Dose 2 MG; Start 06/11/18 at 17:30 Olanzapine (Zyprexa) 10 mg Q6H PRN IM AGITATION/ANXIETY; Start 06/11/18 at 17:00 Assessment/Plan Hospital Course (Demo Recall) IMPRESSION AND PLAN: 1. Severe agitation and possible acute psychotic disorder, cannot exclude unde rlying substance abuse. 2. Intubated for airway protection mild rhabdomyolysis 3. prior history of schizophrenia PLAN: 1. IV fluids decreased rate once tolerating p.o.'s. 2. Advance diet as tolerated 3. P.o. medications 4. DVT GI prophylaxis Patient to be transferred to acute psych facility once stable. critical care time 40 minutes DOC KEITH [facility], [facility] Jun 12, 2018 14:19
--- NOTE | 2018-06-12 15:39 | PN ---
Date/Time of Note Date/Time of Note DATE: 06/12/18 TIME: 15:28 Assessment/Plan VTE Prophylaxis Risk score (from Nsg)>0 risk: 6 SCD applied (from Nsg): Yes Pharmacological prophylaxis: other Lines/Catheters IV Catheter Type (from Nrsg): Saline Lock Urinary Cath still in place: Yes Reason Cath still needed: terminal illness/intractable pain Assessment/Plan Assessment/Plan 1. Schizophrenia with acute psychosis - Continue on current medications per Psych recommendations - Will need involuntary psych admission once stable - Was severely aggressive in ED which led to sedation and intubation 2. Hypernatremia - resolved - Nephrology consultation appreciated 3. Rhabdomyolysis - will continue judicious fluids given CK still elevated - Will continue to trend CK levels 4. Tachycardia - most likely secondary to #1 5. Pneumonia? - Seen on CXR - on empiric antibiotics Disposition - Continue monitoring in ICU given recent extubation - Once tachycardia and rhabdo resolve, can be transferred to psych facility Result Diagram: 06/12/18 0410 06/12/18 0410 Results 24hrs Laboratory Tests Test 06/12/18 04:10 White Blood Count 8.8 Red Blood Count 4.03 L Hemoglobin 11.0 L Hematocrit 35.5 L Mean Corpuscular Volume 88.1 Mean Corpuscular Hemoglobin 27.3 L Mean Corpuscular Hemoglobin Concent 31.0 L Red Cell Distribution Width 12.7 Platelet Count 189 # Mean Platelet Volume 10.5 H Immature Granulocytes % 0.700 H Neutrophils % 72.5 Lymphocytes % 13.2 L Monocytes % 11.8 H Eosinophils % 1.5 Basophils % 0.3 Nucleated Red Blood Cells % 0.0 Immature Granulocytes # 0.060 H Neutrophils # 6.4 Lymphocytes # 1.2 Monocytes # 1.0 H Eosinophils # 0.1 Basophils # 0.0 Nucleated Red Blood Cells # 0.0 Sodium Level 142 Potassium Level 3.5 Chloride Level 98 Carbon Dioxide Level 26 Anion Gap 18 #H Blood Urea Nitrogen 7 Creatinine 0.98 Est Glomerular Filtrat Rate mL/min > 60 Glucose Level 70 Calcium Level 8.4 Phosphorus Level 2.3 L Magnesium Level 1.4 L Creatine Kinase 1432 H Subjective 24 Hr Interval Summary Free Text/Dictation Patient awake but unable to comprehend since mumbling. Remains calm on psych medications. Exam/Review of Systems Exam Vitals Vital Signs Date Temp Pulse Resp B/P (MAP) Pulse Ox O2 O2 Flow FiO2 Time Delivery Rate 06/12/18 114 35 142/74 94 Room Air 15:00 (96) 06/12/18 99.0 12:00 06/11/18 3.0 17:52 06/11/18 30 11:20 Intake and Output 06/11/18 06/11/18 06/12/18 1414:59 22:59 06:59 IntakeIntake Total 1636.5455 ml 765 ml 935 ml OutputOutput Total 2700 ml 2770 ml 780 ml BalanceBalance -1063.4545 ml -2005 ml 155 ml Exam General: Patient is lethargic but awake. mumbling and incomprehensible Neck: Supple Chest: Nontender Lungs: Clear to auscultation bilaterally no crackles rales or wheezing Heart: Normal S1-S2, Regular rhythm, tachycardia. no murmurs Abdomen: Soft , nontender, nondistended , bowel sounds are present. No guarding no rebound tenderness Extremities: Normal to inspection, no edema no cyanosis Results Results 24hrs Laboratory Tests Test 06/12/18 04:10 White Blood Count 8.8 Red Blood Count 4.03 L Hemoglobin 11.0 L Hematocrit 35.5 L Mean Corpuscular Volume 88.1 Mean Corpuscular Hemoglobin 27.3 L Mean Corpuscular Hemoglobin Concent 31.0 L Red Cell Distribution Width 12.7 Platelet Count 189 # Mean Platelet Volume 10.5 H Immature Granulocytes % 0.700 H Neutrophils % 72.5 Lymphocytes % 13.2 L Monocytes % 11.8 H Eosinophils % 1.5 Basophils % 0.3 Nucleated Red Blood Cells % 0.0 Immature Granulocytes # 0.060 H Neutrophils # 6.4 Lymphocytes # 1.2 Monocytes # 1.0 H Eosinophils # 0.1 Basophils # 0.0 Nucleated Red Blood Cells # 0.0 Sodium Level 142 Potassium Level 3.5 Chloride Level 98 Carbon Dioxide Level 26 Anion Gap 18 #H Blood Urea Nitrogen 7 Creatinine 0.98 Est Glomerular Filtrat Rate mL/min > 60 Glucose Level 70 Calcium Level 8.4 Phosphorus Level 2.3 L Magnesium Level 1.4 L Creatine Kinase 1432 H Medications Medication Current Medications Midazolam HCl 50 ml @ 1 mls/hr TITRATE IV Last administered on 06/10/18at 17:22; Admin Dose 1 MLS/HR; Start 06/08/18 at 12:00 Propofol 100 ml @ 3 mls/hr Q12H IV Last administered on 06/09/18 08:02; Admin Dose 18 MLS/HR; Start 06/08/18 at 12:00 Diphenhydramine HCl (Benadryl) 50 mg BID IV Last administered on 06/12/18 08:53; Admin Dose 50 MG; Start 06/08/18 at 12:00 Diphenhydramine HCl (Benadryl) 25 mg Q6 PRN IV AGITATION; Start 06/08/18 at 12:00 Fentanyl 100 ml @ 2.5 mls/hr TITRATE IV Last administered on 06/11/18 02:15; Admin Dose 10 MLS/HR; Start 06/08/18 at 14:00 Chlorpromazine (Thorazine) 150 mg BID IM Last administered on 06/12/18 08:53; Admin Dose 150 MG; Start 06/08/18 at 13:30 Vecuronium [place] 100 mg/ Dextrose 100 ml @ 0 mls/hr TITRATE PRN IV AGITATION/ANXIETY; Start 06/08/18 at 17:00 Sodium Chloride 1,000 ml @ 100 mls/hr Q10H IV Last administered on 06/12/18 10:19; Admin Dose 100 MLS/HR; Start 06/09/18 at 00:30 Dexmedetomidine HCl 200 mcg/ Sodium Chloride 50 ml @ 6.1 mls/hr TITRATE IV Last administered on 06/11/18 09:10; Admin Dose 24.4 MLS/HR; Start 06/09/18 at 16:00 Piperacillin Sod/ Tazobactam Sod 100 ml @ 200 mls/hr Q6 IVPB Last administered on 06/12/18 12:42; Admin Dose 200 MLS/HR; Start 06/10/18 at 00:00 Pantoprazole (Protonix Iv) 40 mg DAILY@06 IV Last administered on 06/12/18 06:00; Admin Dose 40 MG; Start 06/10/18 at 09:00 Divalproex Sodium (Depakote Sprinkle) 500 mg BID PO Last administered on 06/11/18 09:09; Admin Dose 500 MG; Start 06/11/18 at 09:00 Lorazepam (Ativan) 1 mg Q1H PRN IV AGITATION Last administered on 2/20/19at 11:48; Admin Dose 1 MG; Start 06/11/18 at 16:00 Haloperidol (Haldol) 2 mg Q4H PRN IV AGITATION Last administered on 06/11/18at 21:09; Admin Dose 2 MG; Start 06/11/18 at 16:00 Diphenhydramine HCl (Benadryl) 25 mg Q6H PRN IV AGITATION/ANXIETY; Start 06/11/18 at 16:00 Benztropine Mesylate (Cogentin) 2 mg TID PO Last administered on 06/12/18at 08:50; Admin Dose 2 MG; Start 06/11/18 at 17:30 Olanzapine (Zyprexa) 10 mg Q6H PRN IM AGITATION/ANXIETY; Start 06/11/18 at 17:00 SYLVIA JC MD Jun 12, 2018 15:39
[2018-06-12] MEDS: METOPROLOL 5 MG INJ IV PRN (16:14)
[2018-06-13] VITALS (23 sets, daily range): BP systolic 103–181; BP diastolic 71–110; PULSE 99–124; RESP 14–34
[2018-06-13] MEDS: LORAZEPAM 2 MG INJ IV PRN ×3 (00:28→19:44)
[2018-06-13] MEDS: METOPROLOL 5 MG INJ IV PRN ×2 (02:07→21:06)
[2018-06-13] MEDS: POTASSIUM CHLORIDE 100 ML IVPB SCH ×2 (03:56→06:01)
[2018-06-13] MEDS: PANTOPRAZOLE 40 MG INJ IV SCH (06:01)
[2018-06-13] MEDS: PIPER-TAZO 3.375 GM IV (PMX) 100 ML IVPB SCH ×4 (06:01→23:26)
--- NOTE | 2018-06-13 08:46 | PN ---
Date/Time of Note Date/Time of Note DATE: 06/13/18 TIME: 08:46 Assessment/Plan VTE Prophylaxis Risk score (from Nsg)>0 risk: 6 SCD applied (from Nsg): Yes Pharmacological prophylaxis: LMWH Lines/Catheters IV Catheter Type (from Nrsg): PICC Line Central line still needed: Yes Urinary Cath still in place: Yes Reason Cath still needed: terminal illness/intractable pain Assessment/Plan Assessment/Plan 1. Schizophrenia with acute psychosis - Psych consultation appreciated and medication adjustments made - Will need involuntary psych admission once stable 2. Hypernatremia - resolved - Nephrology consultation appreciated 3. Rhabdomyolysis - will continue judicious fluids given CK still elevated - Will continue to trend CK levels 4. Tachycardia- improving - most likely secondary to #1 5. Pneumonia? - Seen on CXR - on empiric antibiotics 6. Disposition - Stable for downgrade to [facility] unit - Continue IVF given elevated CK level and tachycardia. Will be stable for discharge medically in the next 1-2 days Result Diagram: 06/12/18 0410 06/13/18 0233 Results 24hrs Laboratory Tests Test 06/13/18 02:32 06/13/18 02:33 Creatine Kinase 1281 H Sodium Level 140 Potassium Level 3.4 L Chloride Level 105 Carbon Dioxide Level 27 Anion Gap 8 # Blood Urea Nitrogen 5 L Creatinine 1.01 Est Glomerular Filtrat Rate mL/min > 60 Glucose Level 93 Calcium Level 8.2 L Phosphorus Level 2.8 Magnesium Level 1.9 Subjective 24 Hr Interval Summary Free Text/Dictation Patient is still lethargic but more comprehensible this am. Asking for soda this am. Father at bedside and answered all questions. Exam/Review of Systems Exam Vitals Vital Signs Date Temp Pulse Resp B/P (MAP) Pulse Ox O2 O2 Flow FiO2 Time Delivery Rate 06/13/18 100 08:00 06/13/18 32 143/82 98 Nasal 2.0 06:00 (102) Cannula 06/13/18 100.4 04:00 06/12/18 21 20:00 Intake and Output 06/12/18 06/12/18 06/13/18 1414:59 22:59 06:59 IntakeIntake Total 1136 ml 830 ml 1000 ml OutputOutput Total 650 ml 525 ml 750 ml BalanceBalance 486 ml 305 ml 250 ml Exam General: Patient is lethargic but awake. answering some questions Neck: Supple Chest: Nontender Lungs: Clear to auscultation bilaterally no crackles rales or wheezing Heart: Normal S1-S2, Regular rhythm, tachycardia. no murmurs Abdomen: Soft , nontender, nondistended , bowel sounds are present. No guarding no rebound tenderness Extremities: Normal to inspection, no edema no cyanosis Results Results 24hrs Laboratory Tests Test 06/13/18 02:32 06/13/18 02:33 Creatine Kinase 1281 H Sodium Level 140 Potassium Level 3.4 L Chloride Level 105 Carbon Dioxide Level 27 Anion Gap 8 # Blood Urea Nitrogen 5 L Creatinine 1.01 Est Glomerular Filtrat Rate mL/min > 60 Glucose Level 93 Calcium Level 8.2 L Phosphorus Level 2.8 Magnesium Level 1.9 Medications Medication Current Medications Midazolam HCl 50 ml @ 1 mls/hr TITRATE IV Last administered on 06/10/18 17:22; Admin Dose 1 MLS/HR; Start 06/08/18 at 12:00 Propofol 100 ml @ 3 mls/hr Q12H IV Last administered on 06/09/18 08:02; Admin Dose 18 MLS/HR; Start 06/08/18 at 12:00 Diphenhydramine HCl (Benadryl) 50 mg BID IV Last administered on 06/12/18 20:43; Admin Dose 50 MG; Start 06/08/18 at 12:00 Diphenhydramine HCl (Benadryl) 25 mg Q6 PRN IV AGITATION Last administered on 06/12/18 18:37; Admin Dose 25 MG; Start 06/08/18 at 12:00 Fentanyl 100 ml @ 2.5 mls/hr TITRATE IV Last administered on 06/11/18 02:15; Admin Dose 10 MLS/HR; Start 06/08/18 at 14:00 Chlorpromazine (Thorazine) 150 mg BID IM Last administered on 06/12/18 20:44; Admin Dose 150 MG; Start 06/08/18 at 13:30 Vecuronium [place] 100 mg/ Dextrose 100 ml @ 0 mls/hr TITRATE PRN IV AGITATION/ANXIETY; Start 06/08/18 at 17:00 Sodium Chloride 1,000 ml @ 100 mls/hr Q10H IV Last administered on 06/12/18 20:45; Admin Dose 100 MLS/HR; Start 06/09/18 at 00:30 Dexmedetomidine HCl 200 mcg/ Sodium Chloride 50 ml @ 6.1 mls/hr TITRATE IV Last administered on 06/11/18 09:10; Admin Dose 24.4 MLS/HR; Start 06/09/18 at 16:00 Piperacillin Sod/ Tazobactam Sod 100 ml @ 200 mls/hr Q6 IVPB Last administered on 06/13/18 06:01; Admin Dose 200 MLS/HR; Start 06/10/18 at 00:00 Pantoprazole (Protonix Iv) 40 mg DAILY@06 IV Last administered on 06/13/18 06:01; Admin Dose 40 MG; Start 06/10/18 at 09:00 Divalproex Sodium (Depakote Sprinkle) 500 mg BID PO Last administered on 06/11/18 09:09; Admin Dose 500 MG; Start 06/11/18 at 09:00 Lorazepam (Ativan) 1 mg Q1H PRN IV AGITATION Last administered on 06/13/18 00:28; Admin Dose 1 MG; Start 06/11/18 at 16:00 Haloperidol (Haldol) 2 mg Q4H PRN IV AGITATION Last administered on 06/11/18 21:09; Admin Dose 2 MG; Start 06/11/18 at 16:00 Diphenhydramine HCl (Benadryl) 25 mg Q6H PRN IV AGITATION/ANXIETY; Start 06/11/18 at 16:00 Benztropine Mesylate (Cogentin) 2 mg TID PO Last administered on 06/12/18 08:50; Admin Dose 2 MG; Start 06/11/18 at 17:30 Olanzapine (Zyprexa) 10 mg Q6H PRN IM AGITATION/ANXIETY; Start 06/11/18 at 17:00 Metoprolol Tartrate (Lopressor) 5 mg Q4H PRN IV HR >110 Last administered on 06/13/18 02:07; Admin Dose 5 MG; Start 06/12/18 at 15:30 SYLVIA JC MD Jun 13, 2018 08:46
[2018-06-13] MEDS ORDERED: POTASSIUM CHLORIDE 100 ML IVPB SCH (09:00)
[2018-06-13] MEDS: BENZTROPINE 1 MG TAB PO SCH ×3 (09:00→20:37)
[2018-06-13] MEDS: DIVALPROEX SPRINKLE 125 MG CAP PO SCH ×2 (09:00→20:37)
[2018-06-13] MEDS: SOD CHLORIDE 0.9% 1,000 ML IV SCH ×3 (09:03→18:23)
[2018-06-13] MEDS: DIPHENHYDRAMINE 50 MG INJ IV SCH (09:05)
[2018-06-13] MEDS: CHLORPROMAZINE 25 MG INJ IM SCH (09:08)
--- NOTE | 2018-06-13 09:44 | CONS ---
Assessment/Plan Assessment/Plan Assessment/Plan (Daily) 1 Acute kidney injury due to rhabdomyolysis with elevated CPK 2248.improving, slight trending up CK 2. The patient has hypomagnesemia. 3. Acute psychiatric decompensation. 4. Vent-dependent respiratory failure. 5. History of schizophrenia. 6. Status post hypernatremia. 7. Leukocytosis. 8 Hypokalemia 9 Hypophos Plan - Cw NS , will decrease when the patient is not n.p.o. - Replete k -Pending psych recs - left kidney not visualised on Renal US. Likely poor study, will get repeat studies whne once more stable vs CT sc Consultation Date/Type/Reason Admit Date/Time Jun 08, 2018 at 08:51 Initial Consult Date Date/Time of Note DATE: 06/13/18 TIME: 09:44 24 HR Interval Summary Free Text/Dictation Speech eval pending. Till on NS at 100 Opens his eyes Exam/Review of Systems Exam Vitals Vital Signs Date Temp Pulse Resp B/P (MAP) Pulse Ox O2 O2 Flow FiO2 Time Delivery Rate 06/13/18 100 08:00 06/13/18 32 143/82 98 Nasal 2.0 06:00 (102) Cannula 06/13/18 100.4 04:00 06/12/18 20:00 Intake and Output 06/12/18 06/12/18 06/13/18 1515:00 23:00 07:00 IntakeIntake Total 1136 ml 830 ml 900 ml OutputOutput Total 625 ml 550 ml 650 ml BalanceBalance 511 ml 280 ml 250 ml Exam EENT: Head is atraumatic, normocephalic. Pupils equal, reactive to light. NECK: Supple. No JVD. LUNGS: Clear. CARDIOVASCULAR: S1, S2 normal. ABDOMEN: Soft. Bowel sounds positive in 4 quadrants. EXTREMITIES: No cyanosis, clubbing or edema. CENTRAL NERVOUS SYSTEM: opens eyes, follows commands Results Result Diagram: 06/12/18 0410 06/13/18 0233 Results 24hrs Laboratory Tests Test 06/13/18 02:32 06/13/18 02:33 Creatine Kinase 1281 H Sodium Level 140 Potassium Level 3.4 L Chloride Level 105 Carbon Dioxide Level 27 Anion Gap 8 # Blood Urea Nitrogen 5 L Creatinine 1.01 Est Glomerular Filtrat Rate mL/min > 60 Glucose Level 93 Calcium Level 8.2 L Phosphorus Level 2.8 Magnesium Level 1.9 Medications Medication Current Medications Midazolam HCl 50 ml @ 1 mls/hr TITRATE IV Last administered on 06/10/18 17:22; Admin Dose 1 MLS/HR; Start 06/08/18 at 12:00 Propofol 100 ml @ 3 mls/hr Q12H IV Last administered on 06/09/18 08:02; Admin Dose 18 MLS/HR; Start 06/08/18 at 12:00 Diphenhydramine HCl (Benadryl) 50 mg BID IV Last administered on 06/13/18 09:05; Admin Dose 50 MG; Start 06/08/18 at 12:00 Diphenhydramine HCl (Benadryl) 25 mg Q6 PRN IV AGITATION Last administered on 06/12/18 18:37; Admin Dose 25 MG; Start 06/08/18 at 12:00 Fentanyl 100 ml @ 2.5 mls/hr TITRATE IV Last administered on 06/11/18 02:15; Admin Dose 10 MLS/HR; Start 06/08/18 at 14:00 Chlorpromazine (Thorazine) 150 mg BID IM Last administered on 06/13/18 09:08; Admin Dose 150 MG; Start 06/08/18 at 13:30 Vecuronium [place] 100 mg/ Dextrose 100 ml @ 0 mls/hr TITRATE PRN IV AGITATION/ANXIETY; Start 06/08/18 at 17:00 Sodium Chloride 1,000 ml @ 100 mls/hr Q10H IV Last administered on 06/13/18 09:03; Admin Dose 100 MLS/HR; Start 06/09/18 at 00:30 Dexmedetomidine HCl 200 mcg/ Sodium Chloride 50 ml @ 6.1 mls/hr TITRATE IV Last administered on 06/11/18 09:10; Admin Dose 24.4 MLS/HR; Start 06/09/18 at 16:00 Piperacillin Sod/ Tazobactam Sod 100 ml @ 200 mls/hr Q6 IVPB Last administered on 06/13/18 06:01; Admin Dose 200 MLS/HR; Start 06/10/18 at 00:00 Pantoprazole (Protonix Iv) 40 mg DAILY@06 IV Last administered on 2/21/19at 06:01; Admin Dose 40 MG; Start 06/10/18 at 09:00 Divalproex Sodium (Depakote Sprinkle) 500 mg BID PO Last administered on 06/11/18at 09:09; Admin Dose 500 MG; Start 06/11/18 at 09:00 Lorazepam (Ativan) 1 mg Q1H PRN IV AGITATION Last administered on 06/13/18at 00:28; Admin Dose 1 MG; Start 06/11/18 at 16:00 Haloperidol (Haldol) 2 mg Q4H PRN IV AGITATION Last administered on 06/11/18at 21:09; Admin Dose 2 MG; Start 06/11/18 at 16:00 Diphenhydramine HCl (Benadryl) 25 mg Q6H PRN IV AGITATION/ANXIETY; Start 06/11/18 at 16:00 Benztropine Mesylate (Cogentin) 2 mg TID PO Last administered on 06/12/18at 08:50; Admin Dose 2 MG; Start 06/11/18 at 17:30 Olanzapine (Zyprexa) 10 mg Q6H PRN IM AGITATION/ANXIETY; Start 06/11/18 at 17:00 Metoprolol Tartrate (Lopressor) 5 mg Q4H PRN IV HR >110 Last administered on 06/13/18at 02:07; Admin Dose 5 MG; Start 06/12/18 at 15:30 RAMIN ROBBINS MD Jun 13, 2018 09:44
--- NOTE | 2018-06-13 10:58 | CONS ---
Date/Time of Note Date/Time of Note DATE: 06/13/18 TIME: 10:54 Consult Date/Type/Reason Admit Date Jun 08, 2018 at 08:51 Type of Consult Psych Subjective Patient is a 33-year-old -[place] male, he is alert and oriented x4 slow to respond but able to make his needs known. Patient denies suicidal ideation denies homicidal thought denies irritability denies auditory hallucination", I only hear your voice". Patient is still anxious. And his he has poor impulse control, so security at bedside. Objective Patient Appearance: Appropriate dress Voice Loudness: Mildly Soft/Quiet Mood and Affect Description: Anxious Thought Process: Intact Hallucination Type: None Delusion Description: Not Present Assessment/Plan Recommendations Change Thorazine 150 mg IM twice a day to Thorazine 50 mg p.o. 3 times a day. Medication cannot be crushed however it can be mixed mixed with applesauce as patient likes applesauce and Jell-O. Thorazine 100 mg every 6 hours IM also ordered as needed for agitation Copies To: CC: ; YASIR RUST NP Jun 13, 2018 10:58
[2018-06-13] MEDS ORDERED: CHLORPROMAZINE 25 MG INJ IM PRN (11:00)
--- NOTE | 2018-06-13 11:41 | CONS ---
Consult Date/Type/Reason Admit Date/Time Jun 08, 2018 at 08:51 Initial Consult Date Type of Consult Pulmonary Date/Time of Note DATE: 06/13/18 TIME: 11:40 Subjective Patient continues to remain stable. No new events. Mostly compliant with medications. Speech therapy evaluation this morning. Objective Vital Signs Date Temp Pulse Resp B/P (MAP) Pulse Ox O2 O2 Flow FiO2 Time Delivery Rate 06/13/18 104 31 136/82 Nasal 2.0 09:00 (100) Cannula 06/13/18 98.5 100 08:00 06/12/18 20:00 Intake and Output 06/12/18 06/12/18 06/13/18 1515:00 23:00 07:00 IntakeIntake Total 1136 ml 830 ml 1000 ml OutputOutput Total 625 ml 550 ml 710 ml BalanceBalance 511 ml 280 ml 290 ml Exam PHYSICAL EXAMINATION: GENERAL: Well-nourished, well-developed gentleman, stable on room air. VITAL SIGNS: NECK: Supple, no JVD or lymphadenopathy. CARDIAC: S1, S2, no added sounds or murmurs. CHEST: Diminished air entry bilaterally. ABDOMEN: Soft, nontender. No guarding or rebound. EXTREMITIES: No cyanosis, clubbing, or edema. NEUROLOGIC: Generalized weakness no focal deficits. Vent Setting Ventilator Support Mode: CPAP, PS Fraction of Inspired Oxygen pe: 21 Positive End Expiratory Pressu: 5.0 Results/Medications Result Diagram: 06/12/18 0410 06/13/18 0233 Results 24 hrs Laboratory Tests Test 06/13/18 02:32 06/13/18 02:33 Creatine Kinase 1281 H Sodium Level 140 Potassium Level 3.4 L Chloride Level 105 Carbon Dioxide Level 27 Anion Gap 8 # Blood Urea Nitrogen 5 L Creatinine 1.01 Est Glomerular Filtrat Rate mL/min > 60 Glucose Level 93 Calcium Level 8.2 L Phosphorus Level 2.8 Magnesium Level 1.9 Medications Current Medications Sodium Chloride 1,000 ml @ 100 mls/hr Q10H IV Last administered on 06/13/18at 09:03; Admin Dose 100 MLS/HR; Start 06/09/18 at 00:30 Piperacillin Sod/ Tazobactam Sod 100 ml @ 200 mls/hr Q6 IVPB Last administered on 06/13/18at 06:01; Admin Dose 200 MLS/HR; Start 06/10/18 at 00:00 Pantoprazole (Protonix Iv) 40 mg DAILY@06 IV Last administered on 06/13/18at 06:01; Admin Dose 40 MG; Start 06/10/18 at 09:00 Divalproex Sodium (Depakote Sprinkle) 500 mg BID PO Last administered on 06/11/18at 09:09; Admin Dose 500 MG; Start 06/11/18 at 09:00 Lorazepam (Ativan) 1 mg Q1H PRN IV AGITATION Last administered on 06/13/18at 00:28; Admin Dose 1 MG; Start 06/11/18 at 16:00 Benztropine Mesylate (Cogentin) 2 mg TID PO Last administered on 06/12/18at 08:50; Admin Dose 2 MG; Start 06/11/18 at 17:30 Metoprolol Tartrate (Lopressor) 5 mg Q4H PRN IV HR >110 Last administered on 06/13/18at 02:07; Admin Dose 5 MG; Start 06/12/18 at 15:30 Diphenhydramine HCl (Benadryl) 25 mg Q6H PRN IM Anxiety; Start 06/13/18 at 11:00 Chlorpromazine (Thorazine) 50 mg TID PO ; Start 06/13/18 at 13:00 Chlorpromazine (Thorazine) 100 mg Q6H PRN IM AGITATION; Start 06/13/18 at 11:00 Assessment/Plan Hospital Course (Demo Recall) IMPRESSION AND PLAN: 1. Severe agitation and possible acute psychotic disorder, cannot exclude underlying substance abuse. Currently stable post extubation 2. Intubated for airway protection mild rhabdomyolysis now on room air. 3. prior history of schizophrenia PLAN: 1. IV fluids decreased rate once tolerating p.o.'s. Speech therapy recommendations 2. Advance diet as tolerated 3. Continue psychiatry recommendations 4. DVT GI prophylaxis Patient to be transferred to acute psych facility once stable. critical care time 40 minutes Stable to transfer to psychiatry floor. DOC KEITH MD, [facility] Jun 13, 2018 11:41
[2018-06-13] MEDS: DIPHENHYDRAMINE 50 MG INJ IM PRN ×2 (12:26→19:45)
[2018-06-13] MEDS: CHLORPROMAZINE 25 MG TAB PO SCH ×2 (13:00→20:37)
[2018-06-13] MEDS: CHLORPROMAZINE 25 MG INJ IM PRN (19:15)
[2018-06-14] VITALS (20 sets, daily range): BP systolic 125–171; BP diastolic 67–100; PULSE 97–114; RESP 18–37
[2018-06-14] MEDS: SOD CHLORIDE 0.9% 1,000 ML IV SCH ×3 (01:43→23:35)
[2018-06-14] MEDS: LORAZEPAM 2 MG INJ IV PRN ×6 (01:44→23:35)
[2018-06-14] MEDS: CHLORPROMAZINE 25 MG INJ IM PRN (03:07)
[2018-06-14] MEDS: DIPHENHYDRAMINE 50 MG INJ IM PRN (04:25)
[2018-06-14] MEDS: PANTOPRAZOLE 40 MG INJ IV SCH (05:11)
[2018-06-14] MEDS: PIPER-TAZO 3.375 GM IV (PMX) 100 ML IVPB SCH ×4 (05:12→23:35)
[2018-06-14] MEDS: BENZTROPINE 1 MG TAB PO SCH ×3 (09:00→20:42)
[2018-06-14] MEDS: DIVALPROEX SPRINKLE 125 MG CAP PO SCH ×2 (09:00→20:42)
[2018-06-14] MEDS: CHLORPROMAZINE 25 MG TAB PO SCH ×3 (09:00→20:42)
[2018-06-14] MEDS: DIPHENHYDRAMINE 50 MG INJ IV PRN ×2 (10:08→16:21)
--- NOTE | 2018-06-14 11:19 | CONS ---
Consult Date/Type/Reason Admit Date/Time Jun 08, 2018 at 08:51 Initial Consult Date Type of Consult Pulmonary Date/Time of Note DATE: 06/14/18 TIME: 11:18 Subjective Remains mostly somnolent but does open eyes to answer occasional questions. Not agitated this morning. Objective Vital Signs Date Temp Pulse Resp B/P (MAP) Pulse Ox O2 O2 Flow FiO2 Time Delivery Rate 06/14/18 105 31 130/82 98 Nasal 2.0 10:00 (98) Cannula 06/14/18 99.3 08:00 06/13/18 21 19:31 Intake and Output 06/13/18 06/13/18 06/14/18 1515:00 23:00 07:00 IntakeIntake Total 1460 ml 800 ml 450 ml OutputOutput Total 765 ml 1280 ml 1830 ml BalanceBalance 695 ml -480 ml -1380 ml Exam PHYSICAL EXAMINATION: GENERAL: Well-nourished, well-developed gentleman, stable on room air. VITAL SIGNS: NECK: Supple, no JVD or lymphadenopathy. CARDIAC: S1, S2, no added sounds or murmurs. CHEST: Diminished air entry bilaterally. ABDOMEN: Soft, nontender. No guarding or rebound. EXTREMITIES: No cyanosis, clubbing, or edema. NEUROLOGIC: Generalized weakness no focal deficits. Vent Setting Ventilator Support Mode: CPAP, PS Fraction of Inspired Oxygen pe: 21 Positive End Expiratory Pressu: 5.0 Results/Medications Result Diagram: 06/12/18 0410 06/13/18 0233 Medications Current Medications Sodium Chloride 1,000 ml @ 100 mls/hr Q10H IV Last administered on 06/14/18at 01:43; Admin Dose 100 MLS/HR; Start 06/09/18 at 00:30 Piperacillin Sod/ Tazobactam Sod 100 ml @ 200 mls/hr Q6 IVPB Last administered on 06/14/18at 05:12; Admin Dose 200 MLS/HR; Start 06/10/18 at 00:00 Pantoprazole (Protonix Iv) 40 mg DAILY@06 IV Last administered on 06/14/18at 05:11; Admin Dose 40 MG; Start 06/10/18 at 09:00 Divalproex Sodium (Depakote Sprinkle) 500 mg BID PO Last administered on 06/11/18at 09:09; Admin Dose 500 MG; Start 06/11/18 at 09:00 Lorazepam (Ativan) 1 mg Q1H PRN IV AGITATION Last administered on 06/14/18at 07:36; Admin Dose 1 MG; Start 06/11/18 at 16:00 Benztropine Mesylate (Cogentin) 2 mg TID PO Last administered on 06/13/18at 13:14; Admin Dose 2 MG; Start 06/11/18 at 17:30 Metoprolol Tartrate (Lopressor) 5 mg Q4H PRN IV HR >110 Last administered on 06/13/18at 21:06; Admin Dose 5 MG; Start 06/12/18 at 15:30 Chlorpromazine (Thorazine) 50 mg TID PO ; Start 06/13/18 at 13:00 Chlorpromazine (Thorazine) 150 mg Q6H PRN IM AGITATION Last administered on 06/14/18at 03:07; Admin Dose 150 MG; Start 06/13/18 at 17:00 Diphenhydramine HCl (Benadryl) 25 mg Q6H PRN IV Anxiety Last administered on 06/14/18at 10:08; Admin Dose 25 MG; Start 06/14/18 at 10:00 Assessment/Plan Hospital Course (Demo Recall) IMPRESSION AND PLAN: 1. Severe agitation and possible acute psychotic disorder, cannot exclude underlying substance abuse. Currently stable post extubation 2. Intubated for airway protection mild rhabdomyolysis now on room air. 3. prior history of schizophrenia PLAN: 1. IV fluids decreased rate once tolerating p.o.'s. Speech therapy recommendations 2. Advance diet as tolerated 3. Continue psychiatry recommendations 4. DVT GI prophylaxis Stable for transfer to psychiatry floor. Pending transfer to acute psych unit. DOC KEITH MD, [facility] Jun 14, 2018 11:19
--- NOTE | 2018-06-14 12:36 | PN ---
Date/Time of Note Date/Time of Note DATE: 06/14/18 TIME: 12:22 Assessment/Plan VTE Prophylaxis Risk score (from Nsg)>0 risk: 5 SCD applied (from Nsg): Yes Pharmacological prophylaxis: LMWH Lines/Catheters IV Catheter Type (from Nrsg): PICC Line Central line still needed: Yes Urinary Cath still in place: Yes Reason Cath still needed: terminal illness/intractable pain Assessment/Plan Assessment/Plan 1. Schizophrenia with acute psychosis - Psych consultation appreciated and medication adjustments made. Medications transitioned to PO and informed to give with applesauce so patient won't spit them out - Will need involuntary psych admission once stable 2. Hypernatremia - resolved - Nephrology consultation appreciated 3. Rhabdomyolysis - continue on fluids - CK levels trending downward 4. Tachycardia- improving - most likely secondary to #1 5. Pneumonia? - Seen on CXR - on empiric antibiotics, day 5 6. Disposition - Stable for downgrade to [facility] unit - Medically stable for discharge to psych facility once accepted Result Diagram: 06/12/18 0410 06/13/18 0233 Subjective 24 Hr Interval Summary Free Text/Dictation Patient remains lethargic and restrained. No acute overnight events. Exam/Review of Systems Exam Vitals Vital Signs Date Temp Pulse Resp B/P (MAP) Pulse Ox O2 O2 Flow FiO2 Time Delivery Rate 06/14/18 105 31 130/82 98 Nasal 2.0 10:00 (98) Cannula 06/14/18 99.3 08:00 06/13/18 21 19:31 Intake and Output 06/13/18 06/13/18 06/14/18 1515:00 23:00 07:00 IntakeIntake Total 1460 ml 800 ml 450 ml OutputOutput Total 765 ml 1280 ml 1830 ml BalanceBalance 695 ml -480 ml -1380 ml Exam General: Patient is lethargic, no acute distress Neck: Supple Chest: Nontender Lungs: Clear to auscultation bilaterally no crackles rales or wheezing Heart: Normal S1-S2, Regular rhythm, tachycardia. no murmurs Abdomen: Soft , nontender, nondistended , bowel sounds are present. No guarding no rebound tenderness Extremities: Normal to inspection, no edema no cyanosis Medications Medication Current Medications Sodium Chloride 1,000 ml @ 100 mls/hr Q10H IV Last administered on 06/14/18 11:49; Admin Dose 100 MLS/HR; Start 06/09/18 at 00:30 Piperacillin Sod/ Tazobactam Sod 100 ml @ 200 mls/hr Q6 IVPB Last administered on 06/14/18 11:49; Admin Dose 200 MLS/HR; Start 06/10/18 at 00:00 Pantoprazole (Protonix Iv) 40 mg DAILY@06 IV Last administered on 06/14/18 05:11; Admin Dose 40 MG; Start 06/10/18 at 09:00 Divalproex Sodium (Depakote Sprinkle) 500 mg BID PO Last administered on 06/11/18 09:09; Admin Dose 500 MG; Start 06/11/18 at 09:00 Lorazepam (Ativan) 1 mg Q1H PRN IV AGITATION Last administered on 06/14/18 07:36; Admin Dose 1 MG; Start 06/11/18 at 16:00 Benztropine Mesylate (Cogentin) 2 mg TID PO Last administered on 06/13/18 13:14; Admin Dose 2 MG; Start 06/11/18 at 17:30 Metoprolol Tartrate (Lopressor) 5 mg Q4H PRN IV HR >110 Last administered on 06/13/18 21:06; Admin Dose 5 MG; Start 06/12/18 at 15:30 Chlorpromazine (Thorazine) 50 mg TID PO ; Start 06/13/18 at 13:00 Chlorpromazine (Thorazine) 150 mg Q6H PRN IM AGITATION Last administered on 06/14/18 03:07; Admin Dose 150 MG; Start 06/13/18 at 17:00 Diphenhydramine HCl (Benadryl) 25 mg Q6H PRN IV Anxiety Last administered on 06/14/18 10:08; Admin Dose 25 MG; Start 06/14/18 at 10:00 SYLVIA JC MD Jun 14, 2018 12:35
--- NOTE | 2018-06-14 15:16 | CONS ---
Assessment/Plan Assessment/Plan Hospital Course (Demo Recall) 1 Acute kidney injury due to rhabdomyolysis with elevated CPK 2248.improving, slight trending up CK 2. Hypomagnesemia, resolved. 3. Acute psychiatric decompensation. 4. Recent vent-dependent respiratory failure, extubated, on RA. 5. History of schizophrenia. 6. Hypernatremia, resolved. 7. Leukocytosis, resolved. 8 Hypokalemia 9. Obesity Assessment/Plan (Daily) - Cw NS , pt is hardly eating - Replete k - left kidney not visualized on Renal US. Likely poor study, will get repeat studies when once more stable Consultation Date/Type/Reason Admit Date/Time Jun 08, 2018 at 08:51 Initial Consult Date 06/09/2018 Type of Consult nephrology Reason for Consultation Dr Wallace Date/Time of Note DATE: 06/14/18 TIME: 15:15 24 HR Interval Summary Free Text/Dictation not comprehensive Exam/Review of Systems Exam Vitals Vital Signs Date Temp Pulse Resp B/P (MAP) Pulse Ox O2 O2 Flow FiO2 Time Delivery Rate 06/14/18 99.0 110 20 139/86 96 Nasal 2.0 14:00 (103) Cannula 06/13/18 19:31 Intake and Output 06/13/18 06/13/18 06/14/18 1515:00 23:00 07:00 IntakeIntake Total 1460 ml 800 ml 450 ml OutputOutput Total 765 ml 1280 ml 1830 ml BalanceBalance 695 ml -480 ml -1380 ml Exam screaming Constitutional: alert, oriented Head: normocephalic Cardiovascular: regular rate and rhythm Gastrointestinal: soft Musculoskeletal: nl extremities to inspection, other (in restraints) Results Result Diagram: 06/12/18 0410 06/13/18 0233 Medications Medication Current Medications Sodium Chloride 1,000 ml @ 100 mls/hr Q10H IV Last administered on 06/14/18at 11:49; Admin Dose 100 MLS/HR; Start 06/09/18 at 00:30 Piperacillin Sod/ Tazobactam Sod 100 ml @ 200 mls/hr Q6 IVPB Last administered on 06/14/18at 11:49; Admin Dose 200 MLS/HR; Start 06/10/18 at 00:00 Pantoprazole (Protonix Iv) 40 mg DAILY@06 IV Last administered on 06/14/18 05:11; Admin Dose 40 MG; Start 06/10/18 at 09:00 Divalproex Sodium (Depakote Sprinkle) 500 mg BID PO Last administered on 06/11/18 09:09; Admin Dose 500 MG; Start 06/11/18 at 09:00 Lorazepam (Ativan) 1 mg Q1H PRN IV AGITATION Last administered on 06/14/18 14:27; Admin Dose 1 MG; Start 06/11/18 at 16:00 Benztropine Mesylate (Cogentin) 2 mg TID PO Last administered on 06/13/18 13 :14; Admin Dose 2 MG; Start 06/11/18 at 17:30 Metoprolol Tartrate (Lopressor) 5 mg Q4H PRN IV HR >110 Last administered on 06/13/18 21:06; Admin Dose 5 MG; Start 06/12/18 at 15:30 Chlorpromazine (Thorazine) 50 mg TID PO ; Start 06/13/18 at 13:00 Chlorpromazine (Thorazine) 150 mg Q6H PRN IM AGITATION Last administered on 06/14/18 03:07; Admin Dose 150 MG; Start 06/13/18 at 17:00 Diphenhydramine HCl (Benadryl) 25 mg Q6H PRN IV Anxiety Last administered on 06/14/18 10:08; Admin Dose 25 MG; Start 06/14/18 at 10:00 MARILYN ARROYO Jun 14, 2018 15:16
[2018-06-14] MEDS: POTASSIUM CHLORIDE 100 ML IVPB SCH ×2 (16:14→18:44)
[2018-06-14] MEDS ORDERED: ACETAMINOPHEN 325 MG TAB PO PRN (23:00)
[2018-06-15] VITALS (13 sets, daily range): BP systolic 121–164; BP diastolic 54–97; PULSE 100–119; RESP 16–24
[2018-06-15] MEDS: LORAZEPAM 2 MG INJ IV PRN ×5 (03:56→19:43)
[2018-06-15] MEDS: PANTOPRAZOLE 40 MG INJ IV SCH (05:20)
[2018-06-15] MEDS: PIPER-TAZO 3.375 GM IV (PMX) 100 ML IVPB SCH ×3 (05:20→18:10)
[2018-06-15] MEDS: CHLORPROMAZINE 25 MG TAB PO SCH ×4 (08:27→20:55)
[2018-06-15] MEDS: BENZTROPINE 1 MG TAB PO SCH ×3 (08:27→20:55)
[2018-06-15] MEDS: DIVALPROEX SPRINKLE 125 MG CAP PO SCH ×2 (08:27→20:55)
[2018-06-15] MEDS: DIPHENHYDRAMINE 50 MG INJ IV PRN (09:14)
--- NOTE | 2018-06-15 09:24 | PN ---
Date/Time of Note Date/Time of Note DATE: 06/15/18 TIME: 09:23 Assessment/Plan VTE Prophylaxis Risk score (from Ns)>0 risk: 7 SCD applied (from Ns): Yes Pharmacological prophylaxis: LMWH Lines/Catheters IV Catheter Type (from Nrsg): PICC Line Central line still needed: Yes Urinary Cath still in place: Yes Reason Cath still needed: other (indicate) Assessment/Plan Assessment/Plan 1. Schizophrenia with acute psychosis - Patient continues to require restraints and PRN medications due to episodes of agitation. - Psych consultation appreciated and medication adjustments made. - Will need involuntary psych admission once stable 2. Hypernatremia - resolved - Nephrology consultation appreciated 3. Rhabdomyolysis - Patient will continue with elevated CK levels given he is restrained/immobilized and continues to fight against his restraints when experiences episodes of agitation. No renal function compromise appreciated - continue on fluids 4. Tachycardia- improving - HR elevated when agitated but stable when calm 5. Pneumonia? - Seen on CXR - on empiric antibiotics. will d/c today given remains afebrile and WBC normal. Completing 6 days of antibiotics 6. Disposition - CK will remain elevated in patient given he is immobilized and continues to fight against restraints. There is no renal compromise appreciated and medically stable for discharge once accepted to psych facility - Continue IVF and will wean based on PO intake Result Diagram: 06/15/1853206/15/18 0533 Results 24hrs Laboratory Tests Test 06/15/18 05:33 White Blood Count 9.9 Red Blood Count 4.08 L Hemoglobin 11.1 L Hematocrit 34.9 L Mean Corpuscular Volume 85.5 Mean Corpuscular Hemoglobin 27.2 L Mean Corpuscular Hemoglobin Concent 31.8 L Red Cell Distribution Width 13.2 Platelet Count 218 Mean Platelet Volume 10.8 H Immature Granulocytes % 1.200 H Neutrophils % 66.5 Lymphocytes % 14.1 L Monocytes % 15.1 H Eosinophils % 2.9 Basophils % 0.2 Nucleated Red Blood Cells % 0.0 Immature Granulocytes # 0.120 H Neutrophils # 6.6 Lymphocytes # 1.4 Monocytes # 1.5 H Eosinophils # 0.3 Basophils # 0.0 Nucleated Red Blood Cells # 0.0 Sodium Level 137 Potassium Level 4.6 Chloride Level 104 Carbon Dioxide Level 28 Anion Gap 5 Blood Urea Nitrogen 7 Creatinine 0.91 Glucose Level 98 Calcium Level 8.4 Phosphorus Level 3.1 Magnesium Level 1.8 Creatine Kinase 1299 H Albumin 2.7 L Subjective 24 Hr Interval Summary Free Text/Dictation Patient has episodes of agitation and sedated with IM Thorazine as needed or Ativan. He remains restrained given per family, he will probably run if he had the chance. Exam/Review of Systems Exam Vitals Vital Signs Date Temp Pulse Resp B/P (MAP) Pulse Ox O2 O2 Flow FiO2 Time Delivery Rate 06/15/18 98.2 106 20 152/79 97 Room Air 07:39 (103) 06/14/18 2.0 22:00 06/13/18 21 19:31 Intake and Output 06/14/18 06/14/18 06/15/18 1515:00 23:00 07:00 IntakeIntake Total 350 ml 1250 ml 1550 ml OutputOutput Total 700 ml 1650 ml 1900 ml BalanceBalance -350 ml -400 ml -350 ml Exam General: Patient is lethargic, no acute distress. mumbling. dry mucous membranes Neck: Supple Chest: Nontender Lungs: Clear to auscultation bilaterally no crackles rales or wheezing Heart: Normal S1-S2, Regular rhythm, tachycardia. no murmurs Abdomen: Soft , nontender, nondistended , bowel sounds are present. No guarding no rebound tenderness Extremities: Normal to inspection, no edema no cyanosis Results Results 24hrs Laboratory Tests Test 06/15/18 05:33 White Blood Count 9.9 Red Blood Count 4.08 L Hemoglobin 11.1 L Hematocrit 34.9 L Mean Corpuscular Volume 85.5 Mean Corpuscular Hemoglobin 27.2 L Mean Corpuscular Hemoglobin Concent 31.8 L Red Cell Distribution Width 13.2 Platelet Count 218 Mean Platelet Volume 10.8 H Immature Granulocytes % 1.200 H Neutrophils % 66.5 Lymphocytes % 14.1 L Monocytes % 15.1 H Eosinophils % 2.9 Basophils % 0.2 Nucleated Red Blood Cells % 0.0 Immature Granulocytes # 0.120 H Neutrophils # 6.6 Lymphocytes # 1.4 Monocytes # 1.5 H Eosinophils # 0.3 Basophils # 0.0 Nucleated Red Blood Cells # 0.0 Sodium Level 137 Potassium Level 4.6 Chloride Level 104 Carbon Dioxide Level 28 Anion Gap 5 Blood Urea Nitrogen 7 Creatinine 0.91 Glucose Level 98 Calcium Level 8.4 Phosphorus Level 3.1 Magnesium Level 1.8 Creatine Kinase 1299 H Albumin 2.7 L Medications Medication Current Medications Sodium Chloride 1,000 ml @ 100 mls/hr Q10H IV Last administered on 06/14/18 23:35; Admin Dose 100 MLS/HR; Start 06/09/18 at 00:30 Piperacillin Sod/ Tazobactam Sod 100 ml @ 200 mls/hr Q6 IVPB Last administered on 06/15/18 05:20; Admin Dose 200 MLS/HR; Start 06/10/18 at 00:00 Pantoprazole (Protonix Iv) 40 mg DAILY@06 IV Last administered on 06/15/18 05:20; Admin Dose 40 MG; Start 06/10/18 at 09:00 Divalproex Sodium (Depakote Sprinkle) 500 mg BID PO Last administered on 06/15/18 08:27; Admin Dose 500 MG; Start 06/11/18 at 09:00 Benztropine Mesylate (Cogentin) 2 mg TID PO Last administered on 06/15/18 08:27; Admin Dose 2 MG; Start 06/11/18 at 17:30 Metoprolol Tartrate (Lopressor) 5 mg Q4H PRN IV HR >110 Last administered on 06/13/18 21:06; Admin Dose 5 MG; Start 06/12/18 at 15:30 Chlorpromazine (Thorazine) 150 mg Q6H PRN IM AGITATION Last administered on 06/14/18 03:07; Admin Dose 150 MG; Start 06/13/18 at 17:00 Diphenhydramine HCl (Benadryl) 25 mg Q6H PRN IV Anxiety Last administered on 06/15/18 09:14; Admin Dose 25 MG; Start 06/14/18 at 10:00 Lorazepam (Ativan) 2 mg Q1H PRN IV AGITATION Last administered on 06/15/18 08:03; Admin Dose 2 MG; Start 06/14/18 at 19:00 Acetaminophen (Tylenol Tab) 650 mg Q6H PRN PO MILD PAIN(1-3)OR ELEVATED TEMP; Start 06/14/18 at 23:00 Chlorpromazine (Thorazine) 100 mg TID PO ; Start 06/15/18 at 09:00 SYLVIA JC MD Jun 15, 2018 09:24
[2018-06-15] MEDS: SOD CHLORIDE 0.9% 1,000 ML IV SCH ×2 (11:42→21:16)
--- NOTE | 2018-06-15 11:46 | CONS ---
Assessment/Plan Assessment/Plan Hospital Course (Demo Recall) 1 Acute kidney injury due to rhabdomyolysis with elevated CPK 2248.improving, slight trending up CK 2. Hypomagnesemia, resolved. 3. Acute psychiatric decompensation. 4. Recent vent-dependent respiratory failure, extubated, on RA. 5. History of schizophrenia. 6. Hypernatremia, resolved. 7. Leukocytosis, resolved. 8 Hypokalemia 9. Obesity Assessment/Plan (Daily) -Cw NS , pt is hardly eating -mental status is changing - Replete k - left kidney not visualized on Renal US. Likely poor study, will get repeat studies when once more stable Consultation Date/Type/Reason Admit Date/Time Jun 08, 2018 at 08:51 Initial Consult Date 06/09/2018 Type of Consult nephrology Reason for Consultation Dr Wallace Date/Time of Note DATE: 06/15/18 TIME: 11:44 24 HR Interval Summary Constitutional: poor po Exam/Review of Systems Exam Vitals Vital Signs Date Temp Pulse Resp B/P (MAP) Pulse Ox O2 O2 Flow FiO2 Time Delivery Rate 06/15/18 98.2 109 22 141/65 95 Room Air 10:00 (90) 06/14/18 2.0 22:00 06/13/18 21 19:31 Intake and Output 06/14/18 06/14/18 06/15/18 1515:00 23:00 07:00 IntakeIntake Total 350 ml 1250 ml 1550 ml OutputOutput Total 700 ml 1650 ml 1900 ml BalanceBalance -350 ml -400 ml -350 ml Exam sleeping, hard to arouse Neck: supple Respiratory: clear to auscultation Cardiovascular: regular rate and rhythm Genitourinary - Male: other (puente) Results Result Diagram: 06/15/18 0533 06/15/18 0533 Results 24hrs Laboratory Tests Test 06/15/18 05:33 White Blood Count 9.9 Red Blood Count 4.08 L Hemoglobin 11.1 L Hematocrit 34.9 L Mean Corpuscular Volume 85.5 Mean Corpuscular Hemoglobin 27.2 L Mean Corpuscular Hemoglobin Concent 31.8 L Red Cell Distribution Width 13.2 Platelet Count 218 Mean Platelet Volume 10.8 H Immature Granulocytes % 1.200 H Neutrophils % 66.5 Lymphocytes % 14.1 L Monocytes % 15.1 H Eosinophils % 2.9 Basophils % 0.2 Nucleated Red Blood Cells % 0.0 Immature Granulocytes # 0.120 H Neutrophils # 6.6 Lymphocytes # 1.4 Monocytes # 1.5 H Eosinophils # 0.3 Basophils # 0.0 Nucleated Red Blood Cells # 0.0 Sodium Level 137 Potassium Level 4.6 Chloride Level 104 Carbon Dioxide Level 28 Anion Gap 5 Blood Urea Nitrogen 7 Creatinine 0.91 Glucose Level 98 Calcium Level 8.4 Phosphorus Level 3.1 Magnesium Level 1.8 Creatine Kinase 1299 H Albumin 2.7 L Medications Medication Current Medications Sodium Chloride 1,000 ml @ 100 mls/hr Q10H IV Last administered on 06/15/18 11:42; Admin Dose 100 MLS/HR; Start 06/09/18 at 00:30 Piperacillin Sod/ Tazobactam Sod 100 ml @ 200 mls/hr Q6 IVPB Last administered on 06/15/18 11:43; Admin Dose 200 MLS/HR; Start 06/10/18 at 00:00 Pantoprazole (Protonix Iv) 40 mg DAILY@06 IV Last administered on 06/15/18 05:20; Admin Dose 40 MG; Start 06/10/18 at 09:00 Divalproex Sodium (Depakote Sprinkle) 500 mg BID PO Last administered on 06/15/18 08:27; Admin Dose 500 MG; Start 06/11/18 at 09:00 Benztropine Mesylate (Cogentin) 2 mg TID PO Last administered on 06/15/18 08:27; Admin Dose 2 MG; Start 06/11/18 at 17:30 Metoprolol Tartrate (Lopressor) 5 mg Q4H PRN IV HR >110 Last administered on 06/13/18 21:06; Admin Dose 5 MG; Start 06/12/18 at 15:30 Chlorpromazine (Thorazine) 150 mg Q6H PRN IM AGITATION Last administered on 06/14/18 03:07; Admin Dose 150 MG; Start 06/13/18 at 17:00 Diphenhydramine HCl (Benadryl) 25 mg Q6H PRN IV Anxiety Last administered on 06/15/18 09:14; Admin Dose 25 MG; Start 06/14/18 at 10:00 Lorazepam (Ativan) 2 mg Q1H PRN IV AGITATION Last administered on 06/15/18at 08:03; Admin Dose 2 MG; Start 06/14/18 at 19:00 Acetaminophen (Tylenol Tab) 650 mg Q6H PRN PO MILD PAIN(1-3)OR ELEVATED TEMP; Start 06/14/18 at 23:00 Chlorpromazine (Thorazine) 100 mg TID PO ; Start 06/15/18 at 09:00 MARILYN ARROYO Jun 15, 2018 11:46
[2018-06-15] MEDS ORDERED: DIPHENHYDRAMINE 50 MG INJ IV PRN (13:50)
[2018-06-15] MEDS: CHLORPROMAZINE 25 MG INJ IM PRN (17:38)
[2018-06-16] VITALS (13 sets, daily range): BP systolic 140–179; BP diastolic 75–92; PULSE 96–120; RESP 18–24
[2018-06-16] MEDS: SOD CHLORIDE 0.9% 1,000 ML IV SCH ×2 (04:31→14:34)
[2018-06-16] MEDS: LORAZEPAM 2 MG INJ IV PRN ×2 (05:19→23:04)
[2018-06-16] MEDS: PANTOPRAZOLE 40 MG INJ IV SCH (05:19)
[2018-06-16] MEDS: BENZTROPINE 1 MG TAB PO SCH ×4 (08:23→21:02)
[2018-06-16] MEDS: CHLORPROMAZINE 25 MG TAB PO SCH ×4 (08:24→21:02)
[2018-06-16] MEDS: BALSAM PERU/CASTOR OIL 60 GM TUBE TOP SCH (08:24)
[2018-06-16] MEDS: DIVALPROEX SPRINKLE 125 MG CAP PO SCH ×3 (08:24→21:02)
--- NOTE | 2018-06-16 08:30 | PN ---
Date/Time of Note Date/Time of Note DATE: 06/16/18 TIME: 08:30 Assessment/Plan VTE Prophylaxis Risk score (from Nsg)>0 risk: 5 SCD applied (from Nsg): Yes Pharmacological prophylaxis: LMWH Lines/Catheters IV Catheter Type (from Nrsg): PICC Line Central line still needed: Yes Urinary Cath still in place: No Assessment/Plan Assessment/Plan 1. Schizophrenia with acute psychosis - Patient has moments of lucidity and is verbally abusive to staff. He is agitated that he is being restrained and feels like he is being held against his will. Discussed being a danger to self and others and claims he is not a violent person. - Patient continues to require restraints and PRN medications due to episodes of agitation. he commented about wanting to punch the security guards - Psych consultation appreciated for medication recommendations. - Will need involuntary psych placement once accepted. Patient remains medically stable for discharge 2. Hypernatremia - resolved - Nephrology consultation appreciated 3. Rhabdomyolysis - Trending CK is not required. Patient will continue to have elevated levels as long as he remains restrained and bedbound. He has been fighting his restraints as well which contributes to CK elevated - renal function remains stable 4. Tachycardia - HR elevated when agitated but stable when calm 5. Pneumonia? - Seen on CXR - Completed course of antibiotics - remains afebrile and nl WBC. no cough or SOB appreciated 6. Disposition - Patient remains medically stable for discharge once accepted to psych facility - renal function is normal and patient will have persistent CK elevation as long as he is retrained and immobilized. Due to patients agitation, threats to punch staff, and risk of fleeing, patient remains restrained and given sedation as needed Result Diagram: 06/16/18 0546 06/15/18 0533 Results 24hrs Laboratory Tests Test 06/16/18 05:46 White Blood Count 9.4 Red Blood Count 4.05 L Hemoglobin 11.1 L Hematocrit 35.3 L Mean Corpuscular Volume 87.2 Mean Corpuscular Hemoglobin 27.4 L Mean Corpuscular Hemoglobin Concent 31.4 L Red Cell Distribution Width 13.0 Platelet Count 201 Mean Platelet Volume 9.8 Immature Granulocytes % 0.800 H Neutrophils % 71.0 Lymphocytes % 15.1 Monocytes % 9.6 Eosinophils % 3.3 Basophils % 0.2 Nucleated Red Blood Cells % 0.0 Immature Granulocytes # 0.080 H Neutrophils # 6.7 Lymphocytes # 1.4 Monocytes # 0.9 Eosinophils # 0.3 Basophils # 0.0 Nucleated Red Blood Cells # 0.0 Creatine Kinase 1377 H Subjective 24 Hr Interval Summary Free Text/Dictation Patient remains agitated and complaining that he is being held against his will and wants to leave. He is requesting to use the restroom and not be made to use the urinal. Continues to be verbally abusive with staff and fighting the restraints. Exam/Review of Systems Exam Vitals Vital Signs Date Temp Pulse Resp B/P (MAP) Pulse Ox O2 O2 Flow FiO2 Time Delivery Rate 06/16/18 97.8 98 18 141/78 95 Room Air 08:20 (99) 06/14/18 2.0 22:00 06/13/18 21 19:31 Intake and Output 06/15/18 06/15/18 06/16/18 1515:00 23:00 07:00 IntakeIntake Total 1300 ml 1156.25 ml OutputOutput Total 1 ml 2200 ml 1250 ml BalanceBalance -1 ml -900 ml -93.75 ml Exam General: Patient is agitated. dry mucous membranes Neck: Supple Chest: Nontender Lungs: Clear to auscultation bilaterally no crackles rales or wheezing Heart: Normal S1-S2, Regular rhythm, tachycardia. no murmurs Abdomen: Soft , nontender, nondistended , bowel sounds are present. No guarding no rebound tenderness Extremities: Normal to inspection, no edema no cyanosis Results Results 24hrs Laboratory Tests Test 06/16/18 05:46 White Blood Count 9.4 Red Blood Count 4.05 L Hemoglobin 11.1 L Hematocrit 35.3 L Mean Corpuscular Volume 87.2 Mean Corpuscular Hemoglobin 27.4 L Mean Corpuscular Hemoglobin Concent 31.4 L Red Cell Distribution Width 13.0 Platelet Count 201 Mean Platelet Volume 9.8 Immature Granulocytes % 0.800 H Neutrophils % 71.0 Lymphocytes % 15.1 Monocytes % 9.6 Eosinophils % 3.3 Basophils % 0.2 Nucleated Red Blood Cells % 0.0 Immature Granulocytes # 0.080 H Neutrophils # 6.7 Lymphocytes # 1.4 Monocytes # 0.9 Eosinophils # 0.3 Basophils # 0.0 Nucleated Red Blood Cells # 0.0 Creatine Kinase 1377 H Medications Medication Current Medications Sodium Chloride 1,000 ml @ 100 mls/hr Q10H IV Last administered on 06/15/18 21:16; Admin Dose 100 MLS/HR; Start 06/09/18 at 00:30 Pantoprazole (Protonix Iv) 40 mg DAILY@06 IV Last administered on 06/16/18 05:19; Admin Dose 40 MG; Start 06/10/18 at 09:00 Divalproex Sodium (Depakote Sprinkle) 500 mg BID PO Last administered on 06/15/18 20:55; Admin Dose 500 MG; Start 06/11/18 at 09:00 Benztropine Mesylate (Cogentin) 2 mg TID PO Last administered on 06/15/18 20:55; Admin Dose 2 MG; Start 06/11/18 at 17:30 Metoprolol Tartrate (Lopressor) 5 mg Q4H PRN IV HR >110 Last administered on 06/13/18 21:06; Admin Dose 5 MG; Start 06/12/18 at 15:30 Chlorpromazine (Thorazine) 150 mg Q6H PRN IM AGITATION Last administered on 06/15/18 17:38; Admin Dose 150 MG; Start 06/13/18 at 17:00 Lorazepam (Ativan) 2 mg Q1H PRN IV AGITATION Last administered on 06/16/18 05:19; Admin Dose 2 MG; Start 06/14/18 at 19:00 Acetaminophen (Tylenol Tab) 650 mg Q6H PRN PO MILD PAIN(1-3)OR ELEVATED TEMP; Start 06/14/18 at 23:00 Chlorpromazine (Thorazine) 100 mg TID PO Last administered on 06/15/18 20:55; Admin Dose 100 MG; Start 06/15/18 at 09:00 Diphenhydramine HCl (Benadryl) 50 mg Q6H PRN IV Anxiety Last administered on 06/15/18 20:55; Admin Dose 50 MG; Start 06/15/18 at 13:50 SYLVIA JC MD Jun 16, 2018 08:30
[2018-06-16] MEDS: CHLORPROMAZINE 25 MG INJ IM PRN (11:20)
[2018-06-16] MEDS ORDERED: VITAMIN A & D 5 GM OINT PACKET TOP PRN (12:30)
[2018-06-16] MEDS ORDERED: hydrALAzine 20 MG INJ IV PRN (16:30)
[2018-06-16] MEDS ORDERED: ENALAPRILAT 1.25 MG INJ IV PRN (16:30)
--- NOTE | 2018-06-16 16:38 | CONS ---
Assessment/Plan Assessment/Plan Hospital Course (Demo Recall) 1 s/p jarrett better cpk down 2. Hypomagnesemia, resolved. 3. Acute psychiatric decompensation. 4. Recent vent-dependent respiratory failure, extubated, on RA. 5. History of schizophrenia. 6. Hypernatremia, resolved. 7. Leukocytosis, resolved. plan bmp stable Consultation Date/Type/Reason Admit Date/Time Jun 08, 2018 at 08:51 Initial Consult Date Type of Consult renal no sob Date/Time of Note DATE: 06/16/18 TIME: 16:37 Exam/Review of Systems Exam Vitals Vital Signs Date Temp Pulse Resp B/P (MAP) Pulse Ox O2 O2 Flow FiO2 Time Delivery Rate 06/16/18 98.2 114 24 179/92 94 Room Air 16:00 (121) 06/14/18 2.0 22:00 06/13/18 21 19:31 Intake and Output 06/15/18 06/15/18 06/16/18 1515:00 23:00 07:00 IntakeIntake Total 1300 ml 1156.25 ml OutputOutput Total 1 ml 2200 ml 1250 ml BalanceBalance -1 ml -900 ml -93.75 ml Neck: supple Respiratory: clear to auscultation Cardiovascular: regular rate and rhythm Gastrointestinal: soft, bowel sounds (+) Extremities: No edema Results Result Diagram: 06/16/18 0546 06/15/18 0533 Results 24hrs Laboratory Tests Test 06/16/18 05:46 White Blood Count 9.4 Red Blood Count 4.05 L Hemoglobin 11.1 L Hematocrit 35.3 L Mean Corpuscular Volume 87.2 Mean Corpuscular Hemoglobin 27.4 L Mean Corpuscular Hemoglobin Concent 31.4 L Red Cell Distribution Width 13.0 Platelet Count 201 Mean Platelet Volume 9.8 Immature Granulocytes % 0.800 H Neutrophils % 71.0 Lymphocytes % 15.1 Monocytes % 9.6 Eosinophils % 3.3 Basophils % 0.2 Nucleated Red Blood Cells % 0.0 Immature Granulocytes # 0.080 H Neutrophils # 6.7 Lymphocytes # 1.4 Monocytes # 0.9 Eosinophils # 0.3 Basophils # 0.0 Nucleated Red Blood Cells # 0.0 Creatine Kinase 1377 H Medications Medication Current Medications Sodium Chloride 1,000 ml @ 100 mls/hr Q10H IV Last administered on 06/16/18 14:34; Admin Dose 100 MLS/HR; Start 06/09/18 at 00:30 Pantoprazole (Protonix Iv) 40 mg DAILY@06 IV Last administered on 06/16/18 05:19; Admin Dose 40 MG; Start 06/10/18 at 09:00 Divalproex Sodium (Depakote Sprinkle) 500 mg BID PO Last administered on 06/15/18 20:55; Admin Dose 500 MG; Start 06/11/18 at 09:00 Benztropine Mesylate (Cogentin) 2 mg TID PO Last administered on 06/16/18 13:03; Admin Dose 2 MG; Start 06/11/18 at 17:30 Chlorpromazine (Thorazine) 150 mg Q6H PRN IM AGITATION Last administered on 06/16/18 11:20; Admin Dose 150 MG; Start 06/13/18 at 17:00 Lorazepam (Ativan) 2 mg Q1H PRN IV AGITATION Last administered on 06/16/18 05:19; Admin Dose 2 MG; Start 06/14/18 at 19:00 Acetaminophen (Tylenol Tab) 650 mg Q6H PRN PO MILD PAIN(1-3)OR ELEVATED TEMP; Start 06/14/18 at 23:00 Chlorpromazine (Thorazine) 100 mg TID PO Last administered on 06/16/18 13:03; Admin Dose 100 MG; Start 06/15/18 at 09:00 Diphenhydramine HCl (Benadryl) 50 mg Q6H PRN IV Anxiety Last administered on 06/15/18 20:55; Admin Dose 50 MG; Start 06/15/18 at 13:50 Vitamin A/Vitamin D (Vitamin A & D Oint) 1 applic Q2 PRN TOP chapped lips Last administered on 06/16/18 12:55; Admin Dose 1 APPLIC; Start 06/16/18 at 12:30 Hydralazine HCl (Apresoline) 10 mg Q4H PRN IV SBP >170 Last administered on 06/16/18 16:24; Admin Dose 10 MG; Start 06/16/18 at 16:30 Enalaprilat (Vasotec Iv) 0.625 mg Q4H PRN IV SBP >170; Start 06/16/18 at 16:30 Metoprolol Tartrate (Lopressor) 25 mg BID PO ; Start 06/16/18 at 21:00 MINESH SAINI MD Jun 16, 2018 16:38
[2018-06-16] MEDS: METOPROLOL 25 MG TAB PO SCH (21:02)
[2018-06-16] MEDS ORDERED: traMADol 50 MG TAB PO ONE (23:00)
[2018-06-17] MEDS: SOD CHLORIDE 0.9% 1,000 ML IV SCH (00:31)
[2018-06-17] MEDS: PANTOPRAZOLE 40 MG INJ IV SCH ×2 (05:27→05:56)
[2018-06-17 08:03] VITALS: BP 130/76; PULSE 109; RESP 18
[2018-06-17] MEDS: BENZTROPINE 1 MG TAB PO SCH (08:51)
[2018-06-17] MEDS: METOPROLOL 25 MG TAB PO SCH (08:51)
[2018-06-17] MEDS: DIVALPROEX SPRINKLE 125 MG CAP PO SCH (08:51)
[2018-06-17] MEDS: BALSAM PERU/CASTOR OIL 60 GM TUBE TOP SCH (08:52)
[2018-06-17] MEDS: CHLORPROMAZINE 25 MG TAB PO SCH (08:52)
--- NOTE | 2018-06-17 09:58 | DS ---
Date/Time of Note Date/Time of Note DATE: 06/17/18 TIME: 09:58 Discharge Summary Admission/Discharge Info Admit Date/Time Jun 08, 2018 at 08:51 Discharge Date/Time Patient Condition: Critical Hospital Course This is the first day I met the patient, unable to further review charts immediately as I was informed by nursing staff and floor worker the patient would like to leave AMA. I proceeded to speak to the patient in person, patient is currently alert and oriented x4 with a plan to go home and also a plan to follow-up with his primary care provider as soon as possible. Patient can provide an address where he will go home as well as a doctor that he will visit as soon as possible. Patient was on 5150 hold, however this is not a locked un it and patient expressed his wishes to walk out. Director was notified, [employer] was also notified by nursing staff and patient was signing out AGAINST MEDICAL ADVICE. It was questioned based on previous notes whether or not patient could actually sign out AGAINST MEDICAL ADVICE and after assessing that he is currently alert and oriented, the floor worker indicated that he also believes the patient is alert and oriented and can sign out AGAINST MEDICAL ADVICE at this time. According to the notes patient denies being a danger to self and others and claims he is not a violent person. During this whole time patient is sitting comfortably and calmly in a chair outside his room. It was also thoroughly explained to the patient that he could or be further debilitated including kidney failure if he leaves AGAINST MEDICAL ADVICE and patient understood and accepts all risks and stated he will follow-up with his primary care doctor.both myself, director community health nursing, Geovany Mo, and social work lecturer, Prashanth observed and agrees that today, patient is alert and oriented. Parents of patient were notified that he will be walking home and director community health nursing also contacted [employer] for wellness check. Home Meds Reported Medications Olanzapine* (Zyprexa*) 10 Mg Tablet, 10 MG PO BID, #30 TAB 06/05/18 Divalproex Sodium* (Depakote*) 500 Mg Tablet.dr, 250 MG PO QAM, #90 TAB 06/05/18 Divalproex Sodium* (Depakote*) 500 Mg Tablet.dr, 500 MG PO QPM, #120 TAB 06/05/18 Primary Care Provider Care Physician No Primary Time spent on discharge: > 30 minutes CHARISSA CARRILLO Jun 17, 2018 09:58
== END 2018-06-17 09:45 | disposition left against medical advice (07) | DRG 885 ==
LOC: E/R 12:12 → ICU 06-08 08:51 → 5EC 06-14 11:20
PROVIDERS: ADMIT Internal Medicine; ATTEND Internal Medicine
PROC: 5A1945Z Respiratory Ventilation, 24-96 Consecutive Hours (ICD-10-PCS; principal; 2018-06-08)
PROC: 0BH17EZ Insertion of Endotracheal Airway into Trachea, Via Natural or Artificial Opening (ICD-10-PCS; 2018-06-08)
PROC: 02HV33Z Insertion of Infusion Device into Superior Vena Cava, Percutaneous Approach (ICD-10-PCS; 2018-06-09)
DX: F23 Brief psychotic disorder (principal); J96.90 Respiratory failure, unspecified, unspecified whether with hypoxia or hypercapnia; G92 Toxic encephalopathy; J18.9 Pneumonia, unspecified organism; M62.82 Rhabdomyolysis; N17.9 Acute kidney failure, unspecified; E87.0 Hyperosmolality and hypernatremia; F17.210 Nicotine dependence, cigarettes, uncomplicated; F31.9 Bipolar disorder, unspecified; Z68.32 Body mass index [BMI] 32.0-32.9, adult; E66.9 Obesity, unspecified; E83.42 Hypomagnesemia; R45.6 Violent behavior; R45.850 Homicidal ideations; A08.4 Viral intestinal infection, unspecified; E86.0 Dehydration; E88.09 Other disorders of plasma-protein metabolism, not elsewhere classified; E87.6 Hypokalemia; E83.39 Other disorders of phosphorus metabolism; R00.0 Tachycardia, unspecified; Z53.21 Procedure and treatment not carried out due to patient leaving prior to being seen by health care provider
CPT/HCPCS: 31500; 36415; 36569; 36600; 70450; 71045; 76775; 76937; 80048; 80053; 80069; 80307; 81001; 81003; 82150; 82550; 82553; 82570; 82803; 83605; 83690; 83735; 84100; 84155; 84300; 84484; 85025; 85610; 85730; 87040; 87070; 87081; 87086; 87400; 92526; 92610; 93005; 94002; 94003; 94770; 96372; C9113; J0131; J0360; J1200; J1630; J1940; J2060; J2250; J2543; J3010; J3230; J3475; J3480; J7030; J7050; J7070; J7120

== ENCOUNTER 2018-07-29 18:08 | Emergency (ER) | payer MEDICAID, OTHER ==
[~2018-07-29] VITALS: Ht 188 cm; Wt 80.0 kg
[~2018-07-29 18:08] MED LIST changes: +DIVA-48 PO; -DIVA-73 PO; +OLAN10TA7 PO; -ONDA4TAB35 PO
[2018-07-29 18:18] VITALS: BP 138/80; PULSE 98; RESP 18; Ht 188 cm; Wt 80.0 kg
--- NOTE | 2018-07-29 18:21 | ERD ---
ER Documentation Chief Complaint Chief Complaint HPI This is a 33-year-old man with a history of psychiatric illness brought in by [employer] officers for medical clearance after being placed under arrest. After being placed under arrest the patient requested EMS to be called for complaints of ankle pain but shortly after their arrival he canceled his request and was taken to the nearby snf, but when he got to snf he requested another ambulance be called for complaints of ankle pain, so officer in charge requested he be transported to the nearby emergency department medical clearance. Patient denies recent redness or swelling to his ankles or feet, no trauma, no complaints of chest pain or shortness of breath, no complaints of suicidal homicidal ideation. ROS All systems reviewed and are negative except as per history of present illness. Medications Home Meds Reported Medications Olanzapine* (Zyprexa*) 10 Mg Tablet, 10 MG PO BID, #30 TAB 06/05/18 Divalproex Sodium* (Depakote*) 500 Mg Tablet.dr, 250 MG PO QAM, #90 TAB 06/05/18 Divalproex Sodium* (Depakote*) 500 Mg Tablet.dr, 500 MG PO QPM, #120 TAB 06/05/18 Allergies Allergies: Coded Allergies: No Known Allergy (Unverified , 06/05/18) PMhx/Soc Psychiatric illness History of Surgery: No Anesthesia Reaction: No Hx Neurological Disorder: Yes (PYSCHOSIS. DRUG USERS) Hx Respiratory Disorders: No Hx Cardiac Disorders: No Hx Psychiatric Problems: Yes (PSYCHOSIS. SCHIZOPRENIA) Hx Miscellaneous Medical Probl: Yes (RHABDOMYOLISIS) Hx Alcohol Use: Yes Hx Substance Use: Yes Hx Tobacco Use: Yes FmHx Family History: No diabetes Physical Exam Vitals Per nurse's records Physical Exam Const: Agitated, afebrile, well-developed well-nourished Head: Atraumatic Eyes: Normal Conjunctiva ENT: Normal External Ears, Nose and Mouth. Neck: Full range of motion. No meningismus. Resp: Clear to auscultation bilaterally, no wheezing or stridor Cardio: Regular rate and rhythm, no murmurs Abd: Soft, non tender, non distended. Normal bowel sounds Skin: No petechiae or rashes Back: No midline or flank tenderness Ext: No cyanosis, or edema Neur: Awake and alert x3, no focal deficits or facial asymmetry, pupils equal round reactive to light, strength 5/5 in upper and lower extremities bilaterally Psych: Anxious, agitated Procedures/MDM Patient has no signs or objective findings of injury or infection, no deformitie s noted. Vital signs and physical examination were normal so patient is medically cleared and okay to book. Departure Diagnosis: Primary Impression: Encounter for well adult exam without abnormal findings Additional Impression: Medical clearance for incarceration Condition: Stable Patient Instructions: Prison Clearance, Normal Exam, (Child) (Adult) CHARISSA ROCHA MD Jul 29, 2018 18:21
== END 2018-07-29 18:30 | disposition home or self-care (01) ==
LOC: E/R 18:08
DX: Z00.00 Encounter for general adult medical examination without abnormal findings (principal); Z87.891 Personal history of nicotine dependence
CPT/HCPCS: 99282